=== PATIENT | male | born 1965 | race Caucasian/White ===

== ENCOUNTER 2019-06-15 19:18 | Inpatient (IN) | payer MEDICAID ==
[~2019-06-15] VITALS: Ht 177.8 cm; Wt 110.2 kg
[2019-06-15 19:18] VITALS: BP 75/43
--- NOTE | 2019-06-15 19:18 | NUR ---
ED Nurse Note: Patient was BIBA RA 69 from [facility] due to abd pain 05/30, states was vomitting bright red blood. upon arrival patient refused to be touched because he had to pass a bm. refused all assistance; had a bm on bed and floor. cleaned pt up. and assisted to bed. restless and uncooperative.
--- NOTE | 2019-06-15 19:44 | Emergency Room Report ---
History of Present Illness General Chief Complaint: Abdominal Pain Source: Patient, EMS Present Illness HPI Disclaimer: Please note that this report is being documented using DRAGON technology. This can lead to erroneous entry secondary to incorrect interpretation by the dictating instrument. HPI: 54-year-old male presents for evaluation of abdominal pain and hematemesis. States he is a diabetic and may have missed some doses of insulin over the past few days. He is a very poor historian, inattentive, staring off during my conversations with him. His responses are brief and sometimes nonsensical. EMS states he was complaining of hematemesis and abdominal pain that began earlier today. He reports heavy alcohol use over the past few days. Estimates a proximally 5 episodes of emesis and diarrhea throughout the day. Denies bloody stools or melena. Does not take blood thinners according to patient. PMH: Diabetes PSH: Possible hernia repair Allergies: Denies Social Hx: Heavy alcohol use, reported IV drug abuse Allergies: Coded Allergies: No Known Allergies (Unverified , 06/15/19) Nursing Documentation-PMH Past Medical History: No Stated History Review of Systems All Other Systems: negative except mentioned in HPI Physical Exam Vital Signs Date Time Temp Pulse Resp B/P (MAP) Pulse Ox O2 Delivery O2 Flow Rate FiO2 06/15/19 19:12 98.1 120 22 100/58 (72) 98 Room Air General: Awake and alert, appears uncomfortable, tachycardic, hypotensive HEENT: NC/AT. EOMI. dried blood around his mouth Cardiovascular: Tachycardic. Holosystolic murmur best heard at the apex Resp: Normal work of breathing. No cough, wheezing or crackles appreciated Abdomen: Abdomen is soft, nondistended. Nontender. Easily reducible umbilical hernia, soft, no overlying skin changes, nontender Skin: Intact. No abrasions, laceration or rash over the exposed skin. Multiple scars over the extremities, well healed, no abscess MSK: Normal tone and bulk. Moving all extremities. No obvious deformity. Neuro: Awake, very poor historian. Oriented to self and place. Moving all extremities. Tangential thought process Procedures Critical Care Time Critical Care Time Total critical care time: Approximately 60 minutes Due to a high probability of clinically significant, life threatening deterioration, the patient required the highest level of preparedness to intervene emergently and I personally spent this critical care time directly and personally managing the patient. This critical care time included obtaining a history, examining the patient, pulse oximetry, ordering and reviewing studies , ordering treatments, evaluating response to treatment and updating management plan as needed, frequent reassessment and discussion with other providers as well as arranging for ultimate disposition. This critical to care time was performed to assess and manage the high probability of life-threatening deterioration that could result in multiorgan failure. This critical care time is separate from the separately billable procedures and treating other patients. Ultrasound Ultrasound : Consent: Emergent Ultrasound: normal Patient Tolerated: Well Complications: None Progress No free fluid visualized in Morison's pouch, splenorenal space, or in the pelvis No pericardial effusion. No mitral or tricuspid vegetation appreciated. Central Line Central Line : Consent: Emergent Central Line Lumen: triple Maximal Sterile Barrier Tech: yes cap, yes mask, yes sterile gown, yes sterile gloves, yes large sterile sheet, yes hand hygiene, yes chlorhexidine prep Central Line Postion: internal jugular (R) Anesthesia: local cc's of anesthesia: 5 Complications: none Central Line Post Position: sutured, good blood return, position confirmed w / CXR Attempts: One Patient Tolerated: Well Complications: None Medical Decision Making Diagnostic Impression: Primary Impression: Hyperkalemia Additional Impressions: Hyponatremia Elevated troponin Acute kidney failure Hallucination Encephalopathy Acute upper GI bleed ER Course 54-year-old male presents for evaluation of abdominal pain and hematemesis. He arrives tachycardic and hypotensive. He is in no acute distress in my evaluation is a very poor historian. He does report heavy alcohol use and IV drug use is also mentioned. Differential includes was not limited to gastritis , peptic ulcer, perforated ulcer, pancreatitis, cholecystitis, bowel obstruction , incarcerated hernia, appendicitis, pyelonephritis, nephrolithiasis, Karolyn- Cabrera tear, Boerhaave syndrome. Bedside FAST exam is negative for free fluid in the abdomen. I do not see an obvious vegetation on the mitral or tricuspid valve though the exam is of limited quality. We will start broad metabolic and infectious work-up. Aggressive IV fluid hydration. Will obtain type and screen in preparation for possible blood transfusion. Patient also found to have a systolic ejection murmur at the left sternal border. In the setting of IV drug use this is concerning for endocarditis can be evaluated during his admission. Laboratory Tests Test 06/15/19 20:56 06/15/19 22:00 06/15/19 23:51 White Blood Count 9.1 K/UL (4.8-10.8) Pending Red Blood Count 3.16 M/UL (4.70-6.10) L Pending Hemoglobin 10.3 G/DL (14.2-18.0) L Pending Hematocrit 28.9 % (42.0-52.0) L Pending Mean Corpuscular Volume 91 FL (80-99) Pending Mean Corpuscular Hemoglobin 32.7 PG (27.0-31.0) H Pending Mean Corpuscular Hemoglobin Concent 35.8 G/DL (32.0-36.0) Pending Red Cell Distribution Width 10.1 % (11.6-14.8) L Pending Platelet Count 109 K/UL (150-450) L Pending Mean Platelet Volume 4.9 FL (6.5-10.1) L Pending Neutrophils (%) (Auto) 76.4 % (45.0-75.0) H Pending Lymphocytes (%) (Auto) 9.1 % (20.0-45.0) L Pending Monocytes (%) (Auto) 11.5 % (1.0-10.0) H Pending Eosinophils (%) (Auto) 1.3 % (0.0-3.0) Pending Basophils (%) (Auto) 1.6 % (0.0-2.0) Pending Prothrombin Time 11.4 SEC (9.30-11.50) Prothrombin Time INR 1.1 (0.9-1.1) PTT 22 SEC (23-33) L Sodium Level 129 MMOL/L (136-145) L Potassium Level 6.2 MMOL/L (3.5-5.1) *H Chloride Level 94 MMOL/L (98-107) L Carbon Dioxide Level 17 MMOL/L (21-32) L Anion Gap 18 mmol/L (5-15) H Blood Urea Nitrogen 90 mg/dL (7-18) H Creatinine 5.3 MG/DL (0.55-1.30) H Estimate Glomerular Filtration Rate 11.4 mL/min (>60) Glucose Level 93 MG/DL (74-106) Lactic Acid Level 0.90 mmol/L (0.4-2.0) Calcium Level 10.2 MG/DL (8.5-10.1) H Total Bilirubin 0.8 MG/DL (0.2-1.0) Aspartate Amino Transferase (AST) 117 U/L (15-37) H Alanine Aminotransferase (ALT) 28 U/L (12-78) Alkaline Phosphatase 88 U/L (46-116) Troponin I 0.215 ng/mL (0.000-0.056) Total Protein 8.3 G/DL (6.4-8.2) H Albumin 4.0 G/DL (3.4-5.0) Globulin 4.3 g/dL Albumin/Globulin Ratio 0.9 (1.0-2.7) L Lipase 206 U/L (73-393) Urine Color Yellow Urine Appearance Clear Urine pH 5 (4.5-8.0) Urine Specific Bronson 1.010 (1.005-1.035) Urine Protein 1+ (NEGATIVE) H Urine Glucose (UA) Negative (NEGATIVE) Urine Ketones 1+ (NEGATIVE) H Urine Blood 5+ (NEGATIVE) H Urine Nitrite Negative (NEGATIVE) Urine Bilirubin Negative (NEGATIVE) Urine Urobilinogen Normal MG/DL (0.0-1.0) Urine Leukocyte Esterase Negative (NEGATIVE) Urine RBC 30-40 /HPF (0 - 0) H Urine WBC 0-2 /HPF (0 - 0) Urine Squamous Epithelial Cells None /LPF (NONE/OCC) Urine Bacteria Few /HPF (NONE) Ammonia 63 umol/L (11-32) H Urine Opiates Screen Positive (NEGATIVE) H Urine Barbiturates Screen Negative (NEGATIVE) Phencyclidine (PCP) Screen Negative (NEGATIVE) Urine Amphetamines Screen Positive (NEGATIVE) H Urine Benzodiazepines Screen Negative (NEGATIVE) Urine Cocaine Screen Negative (NEGATIVE) Urine Marijuana (THC) Screen Negative (NEGATIVE) EKG Diagnostic Results EKG Time: 20:23 Rate: tachycardiac Rhythm: NSR Other Impression Sinus tachycardia, normal rhythm, normal axis, normal intervals. No ST segment changes. Rhythm Strip Diag. Results Rhythm Strip Time: 20:23 EP Interpretation: yes Rate: 110s Rhythm: NSR, no PVC's, no ectopy Chest X-Ray Diagnostic Results Chest X-Ray Diagnostic Results : Chest X-Ray Ordered: Yes # of Views/Limited/Complete: 1 View Indication: Other - Line placement EP Interpretation: Yes Interpretation: no consolidation, no effusion, no pneumothorax, other - Right internal jugular line in place Impression: Other - Satisfactory position of the right internal jugular line. CT/MRI/US Diagnostic Results CT/MRI/US Diagnostic Results : Impression [facility] Patient: AILYN MONREAL (Male) Age: 54 MR #: [id number] Status: ER Date: 06/15/19 23:26 Slices: 0 History: PAIN Priors: Tech: Exam request generated by Battlepro interface Exams: CT ABDOMEN & PELVIS Without Contrast, CT CHEST Without Contrast Referring Phy: LIDIA^AMISH Ordering Phy: Amish Earl MD Contrast: Accession Numbers: [id number] Preliminary Findings Only See Final Report For Complete Findings CT CHEST Without Contrast: Limited due to motion. Possible mild pulmonary edema/infiltrates, versus hypoventilation or motion artifact. No acute fracture or pneumothorax. CT ABDOMEN & PELVIS Without Contrast: No appendicitis, SBO, or diverticulitis. Mild diffuse colonic thickening which may be underdistention, chronic, versus colitis. No hydronephrosis. Mildly thickened bladder which may be underdistention versus cystitis. Unremarkable gallbladder and pancreas. Mildly nodular liver contour, cannot exclude cirrhosis. No acute fracture or visceral injury. Umbilical fat hernia Radiologist: Navjot Haro M.D. Study ready at 23:41 and initial results transmitted at 00:14 Reevaluation Time: 23:13 Last Vital Signs Date Time Temp Pulse Resp B/P (MAP) Pulse Ox O2 Delivery O2 Flow Rate FiO2 06/15/19 19:12 98.1 120 22 100/58 (72) 98 Room Air Reevaluation Impression Patient was initially unable to tolerate CT scan without contrast due to agitation. When he returned to the room he was hallucinating though redirectable. He was not violent and was in fact cooperative. Given persistently low blood pressures and inability to establish a peripheral line a central line was placed in the right internal jugular vein under ultrasound guidance. Please see separate procedure note for full details. Labs show hyponatremia, hyperkalemia, acute kidney failure, elevated troponin. His EKG does not show ischemic changes but does show sinus tachycardia. May be demand ischemia or from his significant electrolyte and renal derangements. In the setting of possible massive GI bleed will withhold aspirin. He is receiving IV fluids. He will go for a noncontrast scan of the torso given his reported large volume hemoptysis. He has received calcium gluconate, insulin and dextrose to treat his hyperkalemia. Will require admission to the ICU. Patient also had large amounts of diarrhea while in the emergency department. Suspect significant volume losses 2330: Patient returned from his CT scan hypotensive. He is receiving IV fluids however blood pressures did not significantly improved. Levophed drip was started and is improving his pressures. Will repeat CBC and troponin. Patient is received ceftriaxone, Protonix and will obtain blood cultures as part of septic work-up. Will require admission to the ICU. 0030: No evidence of perforation or large bleed on CT scan. Repeat hemoglobin dropped 2.3 points. No evidence of active bleeding. Patient received Protonix. May represent a mucosal bleed such as Dieulafoy lesion, alcoholic gastritis, Karolyn-Cabrera tear, variceal bleed. Octreotide is not given as the patient is not actively bleeding at this time. His pressures are improving after receiving fluids and norepinephrine drip continues. We will transfuse 1 unit and transferred to the ICU. Disposition: ADMITTED INPATIENT Condition: Critical Amish Earl MD Jun 15, 2019 19:44
[2019-06-15 20:30] VITALS: BP 95/53
--- NOTE | 2019-06-15 20:56 | NUR ---
ED Nurse Note: blood collected; sent down to lab.
[2019-06-15 21:23] LABS: BASOPHILS % (AUTO) 1.6 % (0.0-2.0); EOSINOPHILS % (AUTO) 1.3 % (0.0-3.0); HEMATOCRIT 28.9 % (42.0-52.0); HEMOGLOBIN 10.3 G/DL (14.2-18.0); LYMPHOCYTES % (AUTO) 9.1 % (20.0-45.0); MEAN CORPUSCULAR VOLUME 91 FL (80-99); MONOCYTES % (AUTO) 11.5 % (1.0-10.0); NEUTROPHILS % (AUTO) 76.4 % (45.0-75.0); PLATELET COUNT 109 K/UL (150-450); RED BLOOD COUNT 3.16 M/UL (4.70-6.10); RED CELL DISTRIBUTION WIDTH 10.1 % (11.6-14.8); WHITE BLOOD COUNT 9.1 K/UL (4.8-10.8)
[2019-06-15 21:25] LABS: INR 1.1 (0.9-1.1)
[2019-06-15 21:30] VITALS: BP 107/56
[2019-06-15] MEDS ORDERED: Haloperidol 5mg/ml Inj IM ONE (21:30)
[2019-06-15 21:39] LABS: ALANINE AMINOTRANSFERASE 28 U/L (12-78); ALBUMIN/GLOBULIN RATIO 0.9 (1.0-2.7); ALKALINE PHOSPHATASE 88 U/L (46-116); ANION GAP 18 mmol/L (5-15); ASPARTATE AMINO TRANSFERASE 117 U/L (15-37); BILIRUBIN,TOTAL 0.8 MG/DL (0.2-1.0); BLOOD UREA NITROGEN 90 mg/dL (7-18); CALCIUM 10.2 MG/DL (8.5-10.1); CARBON DIOXIDE 17 MMOL/L (21-32); CHLORIDE 94 MMOL/L (98-107); CREATININE 5.3 MG/DL (0.55-1.30); SODIUM 129 MMOL/L (136-145)
[2019-06-15 21:42] LABS: POTASSIUM 6.2 MMOL/L (3.5-5.1)
[2019-06-15] MEDS ORDERED: Lidocaine 1% 10mg/ml/Epi 0.005mg/ml 10ml vial INJ ONE (21:51)
--- NOTE | 2019-06-15 22:00 | NUR ---
ED Nurse Note: urine collected; sent down to lab. wound noted on right inner thight; photos upleaded. cre vre mrsa swabs collected; sent down to lab.
[2019-06-15] MEDS ORDERED: Omnipaue 350mg/ml 100ml vial INJ PRN (22:15)
[2019-06-15] MEDS ORDERED: Calcium Gluconate 1gm/10ml vial IVP ONE (22:15)
[2019-06-15] MEDS ORDERED: Insulin Human Regular 100units/ml 3ml IV ONE (22:15)
--- NOTE | 2019-06-15 22:15 | NUR ---
ED Nurse Note: assisted ermd with central line placement. pt in no acute distress
[2019-06-15 22:30] VITALS: BP 56/46
--- NOTE | 2019-06-15 23:00 | NUR ---
ED Nurse Note: patients states "im going to shit right here." offered bedpan and toileting; pt refused. cleaned patient in bed. patient in no acute distress.
--- NOTE | 2019-06-15 23:10 | NUR ---
ED Nurse Note: PT DOWN TO CT. ACCOMPANIED BY 2 RADIOLOGY TECHS.
[2019-06-15 23:12] LABS: APPEARANCE,URINE CLEAR; BILIRUBIN, URINE NEGATIVE (NEGATIVE); GLUCOSE, URINE (UA) NEGATIVE (NEGATIVE); KETONES,URINE 1+ (NEGATIVE); LEUKOCYTE ESTERASE ,URINE NEGATIVE (NEGATIVE); NITRITE,URINE NEGATIVE (NEGATIVE); PH,URINE 5 (4.5-8.0); PROTEIN,URINE 1+ (NEGATIVE); UROBILINOGEN,URINE NORMAL MG/DL (0.0-1.0)
[2019-06-15 23:24] LABS: COLOR,URINE YELLOW
[2019-06-15 23:30] VITALS: BP 53/20
[2019-06-15] MEDS ORDERED: Pantoprazole Inj IVP ONE (23:30)
[2019-06-15] MEDS ORDERED: Lactulose 20gm/30ml UDC ORAL ONE (23:30)
[2019-06-15] MEDS ORDERED: cefTRIAXone 1 GM in NS 55 ML IVPB ONE (23:30)
--- NOTE | 2019-06-15 23:30 | NUR ---
ED Nurse Note: patient back from ct.
[2019-06-15] MEDS ORDERED: Norepinephrine Bitartrate 4 MG in NS 250 ML IV ONE (23:45)
--- NOTE | 2019-06-15 23:51 | NUR ---
ED Nurse Note: repeat labs drawn; sent down to lab.
[2019-06-16] VITALS (55 sets, daily range): BP systolic 64–122; BP diastolic 29–71
[2019-06-16 00:11] LABS: HEMATOCRIT 21.8 % (42.0-52.0); MEAN CORPUSCULAR VOLUME 91 FL (80-99); PLATELET COUNT 89 K/UL (150-450); RED CELL DISTRIBUTION WIDTH 10.6 % (11.6-14.8); WHITE BLOOD COUNT 7.7 K/UL (4.8-10.8)
--- NOTE | 2019-06-16 00:15 | Diagnostic Imaging Report ---
CLINICAL INDICATION:Abdominal pain, vomiting bright red blood, difficulty breathing TECHNIQUE: No oral contrast, per emergency room physician request. No IV contrast, per emergency room physician request. Spiral acquisitions obtained through the chest, abdomen, and pelvis. Multiplanar reconstructions were generated. Total dose length product 1530 mGycm. CTDIvol(s) 19 mGy. Radiation dose was minimized using automated exposure control COMPARISON: none FINDINGS Chest: The lungs demonstrate groundglass opacities bilaterally. These are fairly diffuse. There is hyperinflation of the upper lobes and small upper lobe blebs bilaterally. No focal airspace consolidation. No infiltrates, effusions, masses, or nodules. The heart is borderline enlarged. No pericardial effusion. There is a right jugular central venous catheter in place, tip deep within the right atrium. No mediastinal or hilar mass or adenopathy demonstrated. The included thyroid is unremarkable. No axillary or chest wall mass or adenopathy. Abdomen pelvis: There is a fat-containing umbilical hernia. The appendix is normal. No evidence of colonic diverticulosis or diverticulitis. There is mild wall thickening of the sigmoid colon. There is equivocal mild wall thickening elsewhere in the colon, although this may be an artifact of under distention. No free or loculated intraperitoneal gas or fluid is evident. No small bowel distention. The stomach and duodenum are unremarkable. The gallbladder is distended. No definite gallstones. The lack of IV contrast limits assessment of the solid organs. There is questionable surface nodularity of the liver. No focal abnormality Bile ducts, pancreas, spleen, adrenals, kidneys are unremarkable. No retroperitoneal or mesenteric mass or adenopathy. The bladder is empty. No pelvic mass or adenopathy. IMPRESSION: Sigmoid colonic wall thickening, suspicious for colitis, nonspecific as regards etiology. Apparent wall thickening elsewhere in the colon, may also indicate colitis changes but could also be an artifact of under distention Bilateral pulmonary parenchymal groundglass opacity. This is nonspecific, could indicate mild pulmonary edema, among other possibilities Upper lobe hyperinflation and small blebs, likely representing COPD changes Borderline cardiomegaly Right jugular central venous catheter in place Equivocal surface nodularity; if real, could indicate early cirrhotic changes Incidental finding of fat-containing umbilical hernia This agrees with the preliminary interpretation provided overnight by [employer] teleradiology service. The CT scanner at [facility] is accredited by the [employer] and the scans are performed using protocols designed to limit radiation exposure to as low as reasonably achievable to attain images of sufficient resolution adequate for diagnostic evaluation.
[2019-06-16 00:32] LABS: PHOSPHORUS 6.1 MG/DL (2.5-4.9)
--- NOTE | 2019-06-16 00:39 | NUR ---
ED Nurse Note: per ermd, overide protocol & infuse levophed at 12 mcg/min (45 mls/hr)
--- NOTE | 2019-06-16 01:43 | NUR ---
ED Nurse Note: patient urinated on the floor despite access to urinal.
--- NOTE | 2019-06-16 02:00 | NUR ---
ED Nurse Note: FOLLOWED UP WITH LAB REGARDING BLOOD TRANSFUSION. PER CLS, TYPE & CROSS STILL PENDING.
--- NOTE | 2019-06-16 02:45 | NUR ---
ED Nurse Note: TRANSFUSION STARTED. PT CALM AND COOPERATIVE. NO ACUTE DISTRESS.
--- NOTE | 2019-06-16 03:00 | NUR ---
TRANSFER TO FLOOR: Patient transferred to ICU 246 K as ordered, per ENEIDA. Report given to CHINA PEARL. BELONGINGS LIST COMPLETED WITH RECEIVING RN.
--- NOTE | 2019-06-16 03:10 | NUR ---
NURSE NOTES: REceived a 54 y.o male with chief c/o abdominal pain and hematemesis. Pt is altered and hardly answer any question ask. Mouth has some ganky blood stained, 1st unit PRBC on board as well as Levophed drip at 12mcg/min infusing through IJ central line. Site with drsg dry and intact. SR on the monitor. 0
[2019-06-16] MEDS ORDERED: ACETAMINOPHEN325 M1 ORAL (03:47)
[2019-06-16] MEDS ORDERED: MULTI-VITAMIN1 EACH PO (03:47)
[2019-06-16] MEDS ORDERED: SPIRONOLACTONE25 MG ORAL (03:47)
[2019-06-16] MEDS ORDERED: GABAPENTIN600 MG ORAL (03:47)
[2019-06-16] MEDS ORDERED: MILK OF MA400 MG/51 ORAL (03:47)
[2019-06-16] MEDS ORDERED: LISINOPRIL5 MG ORAL (03:47)
[2019-06-16] MEDS ORDERED: VITAMIN C250 MG ORAL (03:47)
[2019-06-16] MEDS ORDERED: BISACODYL5 MG ORAL (03:47)
[2019-06-16] MEDS ORDERED: NORCO 5-325 TA1 EACH ORAL (03:47)
[2019-06-16] MEDS ORDERED: FUROSEMIDE40 MG ORAL (03:47)
[2019-06-16] MEDS ORDERED: ZOFRAN4 M1 ORAL (03:47)
[2019-06-16] MEDS ORDERED: FLEET ENEMA133 M1 RC (03:47)
[2019-06-16] MEDS ORDERED: PRO-STAT LIQUID30 ML ORAL (03:47)
[2019-06-16] MEDS ORDERED: LACTULOSE20 GM/301 ORAL (03:47)
[2019-06-16] MEDS ORDERED: DOCUSATE SODIU100 MG ORAL (03:47)
[2019-06-16] MEDS ORDERED: ADALAT10 MG ORAL (03:47)
--- NOTE | 2019-06-16 03:51 | NUR ---
NURSE NOTES: NSR on the monitor. Bp 103/51 . On room air. 02 sat 100%. PT sleeping and snoring at this time and easily arousable to tactile stimulation. open wound approximately quarter in size were noted to his left posterior thigh as well as multiple blisters and ecchymosis were noted as well to posterior left thigh. There is a scar noted to RT posterior leg. Otherwise no pressure sores. The open wound was covered with optifoam and A annd D was applied. Pt was able to use the urinal and void 800ml. Will continue to monitor.
--- NOTE | 2019-06-16 05:20 | NUR ---
NURSE NOTES: Pts Bp 100/55 NSR, called Dr Ellington for continuition of Levophed drip from ER- Awaiting for md to call back
--- NOTE | 2019-06-16 05:50 | NUR ---
NURSE NOTES: Re called Dr Ellington - still awaiting for md to call back. bakery demonstratorRYANNE Greco was aware.
[2019-06-16] MEDS ORDERED: Levophed 4mg/4mL Inj IV ONE (06:17)
[2019-06-16 07:09] LABS: ALANINE AMINOTRANSFERASE 26 U/L (12-78); ALBUMIN 3.3 G/DL (3.4-5.0); ALBUMIN/GLOBULIN RATIO 0.7 (1.0-2.7); ALKALINE PHOSPHATASE 74 U/L (46-116); ANION GAP 13 mmol/L (5-15); ASPARTATE AMINO TRANSFERASE 119 U/L (15-37); BILIRUBIN,TOTAL 0.8 MG/DL (0.2-1.0); BLOOD UREA NITROGEN 80 mg/dL (7-18); CALCIUM 9.2 MG/DL (8.5-10.1); CARBON DIOXIDE 18 MMOL/L (21-32); CHLORIDE 106 MMOL/L (98-107); CREATININE 4.3 MG/DL (0.55-1.30); SODIUM 138 MMOL/L (136-145)
[2019-06-16 07:20] LABS: POTASSIUM 6.4 MMOL/L (3.5-5.1)
[2019-06-16 07:37] LABS: BASOPHILS % (AUTO) 1.1 % (0.0-2.0); HEMATOCRIT 28.3 % (42.0-52.0); HEMOGLOBIN 10.1 G/DL (14.2-18.0); LYMPHOCYTES % (AUTO) 11.7 % (20.0-45.0); MEAN CORPUSCULAR VOLUME 92 FL (80-99); MONOCYTES % (AUTO) 15.5 % (1.0-10.0); NEUTROPHILS % (AUTO) 70.7 % (45.0-75.0); PLATELET COUNT 103 K/UL (150-450); RED BLOOD COUNT 3.06 M/UL (4.70-6.10); RED CELL DISTRIBUTION WIDTH 11.5 % (11.6-14.8); WHITE BLOOD COUNT 6.7 K/UL (4.8-10.8)
--- NOTE | 2019-06-16 07:37 | NUR ---
NURSE NOTES: CALLED AND LEFT A MESSAGE TO DR MOSS RE K LEVEL, AND DR CALDWELL RE TROPONIN LEVEL. AWAITING FOR CALL BACK. CN MADE AWARE. WILL CONTINUE TO MONITOR.
--- NOTE | 2019-06-16 07:42 | NUR ---
HAND-OFF: Report given to Sophia PEARL.
--- NOTE | 2019-06-16 07:43 | NUR ---
NURSE NOTES: RECEIVED PATIENT FROM Scarlett LINDO RN. PATIENT IS LYING IN BED, ASLEEP BUT RESPONSIVE AND CONFUSED. 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 HR OF 88. ON ROOM AIR. NO SIGNS OF DISTRESS. DENIES ANY PAIN OF THE MOMENT. NPO OF THE MOMENT. HE USES URINALS. SKIN ALTERATION NOTED. NOTED R IJ TLC WITH LEVOPHED RUNNING AT 15MCG/MIN AND IVF NS AT 100ML/HR. CALL LIGHT WITHIN REACH. BED AT LOWEST POSITION. SIDE RAILS UP. WILL CONTINUE TO MONITOR.
[2019-06-16] MEDS ORDERED: D5NS 1,000 ML IV SCH (08:00)
--- NOTE | 2019-06-16 08:00 | NUR ---
NURSE NOTES: SEEN AND EXAMINED BY DR MENCHACA AND MADE AWARE OF THE LAB RESULT. WILL CONTINUE TO MONITOR.
--- NOTE | 2019-06-16 08:54 | NUR ---
NURSE NOTES: SEEN AND EXAMINED BY DR MOSS WITH NEW ORDERS MADE. 2D ECHO AND VENOUS DUPLEX ON-GOING. WILL CONTINUE TO MONITOR.
[2019-06-16] MEDS ORDERED: Thiamine 100mg tab ORAL SCH (09:00)
--- NOTE | 2019-06-16 09:14 | Consultation ---
History of Present Illness General Date patient seen: Jun 16, 2019 Present Illness Allergies: Coded Allergies: No Known Allergies (Unverified , 06/15/19) Medication History Discontinued Medications Acetaminophen* (Acetaminophen 325MG Tablet*), 325 MG ORAL Q4H PRN for Pain Scale (3-5), (Reported) Discontinued Reason: MD discontinued med Amino Acids/Protein Hydrolys (Pro-Stat Liquid), 30 ML ORAL TWICE A DAY, ( Reported) Discontinued Reason: MD discontinued med Ascorbic Acid* (Vitamin C*), 250 MG ORAL DAILY, (Reported) Discontinued Reason: MD discontinued med Bisacodyl* (Dulcolax*), 10 MG ORAL DAILY, (Reported) Discontinued Reason: MD discontinued med Docusate Sodium* (Docusate Sodium*), 100 MG ORAL TWICE A DAY, (Reported) Discontinued Reason: MD discontinued med Furosemide* (Lasix*), 40 MG ORAL TWICE A DAY, (Reported) Discontinued Reason: MD discontinued med Gabapentin* (Gabapentin*), 600 MG ORAL THREE TIMES A DAY, (Reported) Discontinued Reason: MD discontinued med Hydrocodone Bit/Acetaminophen 5-325* ([place] 5-325*), 1 TAB ORAL Q4H PRN for For Pain, (Reported) Discontinued Reason: MD discontinued med Lactulose (Lactulose*), 30 ML ORAL, (Reported) Discontinued Reason: MD discontinued med Lisinopril (Lisinopril*), 10 MG ORAL DAILY, (Reported) Discontinued Reason: MD discontinued med Magnesium Hydroxide* (Milk Of Magnesia*), 30 ML ORAL DAILY, (Reported) Discontinued Reason: MD discontinued med Multivitamin (Multi-Vitamin Daily), 1 EACH PO, (Reported) Discontinued Reason: MD discontinued med Na Phos,M-B/Na Phos,Di-Ba (Fleet Enema), 133 ML RC, (Reported) Discontinued Reason: MD discontinued med Nifedipine (Nifedipine*), 30 MG ORAL DAILY, (Reported) Discontinued Reason: MD discontinued med Ondansetron (Zofran), 4 MG ORAL Q6H PRN for Nausea & Vomiting, (Reported) Discontinued Reason: MD discontinued med Spironolactone* (Aldactone*), 25 MG ORAL DAILY, (Reported) Discontinued Reason: MD discontinued med Patient History Healthcare decision maker Resuscitation status Full Code Advanced Directive on File No Physical Exam Last 24 Hour Vital Signs Date Time Temp Pulse Resp B/P (MAP) Pulse Ox O2 Delivery O2 Flow Rate FiO2 06/16/19 08:45 87 15 111/63 (79) 100 06/16/19 08:30 87 16 122/64 (83) 100 06/16/19 08:30 122/64 06/16/19 08:30 86 15 114/63 (80) 100 06/16/19 08:15 87 15 114/63 (80) 100 06/16/19 08:00 87 06/16/19 08:00 111/57 06/16/19 08:00 97.8 87 13 111/57 (75) 99 06/16/19 08:00 Room Air 06/16/19 07:45 88 14 112/61 (78) 99 06/16/19 07:30 86 14 122/69 (86) 99 06/16/19 07:13 120/68 06/16/19 07:13 122/69 06/16/19 07:00 92 20 122/69 (86) 100 06/16/19 06:30 93 20 112/29 (56) 100 06/16/19 06:00 100/60 06/16/19 06:00 95 20 110/29 (56) 100 06/16/19 05:30 96 18 64/29 (41) 100 06/16/19 05:00 90 20 99/50 (66) 100 06/16/19 05:00 64/29 06/16/19 04:00 Room Air 06/16/19 04:00 103/52 06/16/19 04:00 98.2 93 20 100/55 (70) 100 06/16/19 03:31 101 06/16/19 03:30 Room Air 06/16/19 03:30 95 20 103/52 (69) 100 06/16/19 03:15 98.1 101 22 103/61 (75) 100 06/16/19 03:10 103/61 06/16/19 03:00 98.1 94 14 95/51 99 Room Air 06/16/19 02:30 98.1 94 14 95/51 99 Room Air 06/16/19 02:00 98.1 91 16 99/52 98 Room Air 06/16/19 01:05 98.1 93 16 95/46 98 Room Air 06/16/19 01:04 95/46 06/16/19 00:59 84/45 06/16/19 00:54 94/43 06/16/19 00:49 93/44 06/16/19 00:44 90/48 06/16/19 00:39 104/48 06/16/19 00:34 88/40 06/16/19 00:30 98.1 98 21 75/43 99 Room Air 06/16/19 00:29 75/43 06/15/19 23:30 98.1 98 21 53/20 99 Room Air 06/15/19 22:30 98.1 98 21 56/46 99 Room Air 06/15/19 21:30 98.1 116 21 107/56 100 Room Air 06/15/19 20:30 98.1 115 22 95/53 99 Room Air 06/15/19 19:18 98.1 120 22 75/43 98 Room Air 06/15/19 19:18 120 22 Room Air 06/15/19 19:12 98.1 120 22 100/58 (72) 98 Room Air Intake and Output 06/15/19 06/16/19 19:00 07:00 Intake Total 465.24 ml Output Total 1700 ml Balance -1234.76 ml Intake Oral 0 ml IV Total 465.24 ml Output Urine Total 1700 ml # Voids 2 # Bowel Movements 6 Laboratory Tests Test 06/15/19 20:56 06/15/19 22:00 06/15/19 23:51 06/16/19 00:00 White Blood Count 9.1 K/UL (4.8-10.8) 7.7 K/UL (4.8-10.8) Red Blood Count 3.16 M/UL (4.70-6.10) L 2.40 M/UL (4.70-6.10) L Hemoglobin 10.3 G/DL (14.2-18.0) L 8.0 G/DL (14.2-18.0) L Hematocrit 28.9 % (42.0-52.0) L 21.8 % (42.0-52.0) L Mean Corpuscular Volume 91 FL (80-99) 91 FL (80-99) Mean Corpuscular Hemoglobin 32.7 PG (27.0-31.0) H 33.4 PG (27.0-31.0) H Mean Corpuscular Hemoglobin Concent 35.8 G/DL (32.0-36.0) 36.6 G/DL (32.0-36.0) H Red Cell Distribution Width 10.1 % (11.6-14.8) L 10.6 % (11.6-14.8) L Platelet Count 109 K/UL (150-450) L 89 K/UL (150-450) L Mean Platelet Volume 4.9 FL (6.5-10.1) L 4.4 FL (6.5-10.1) L Neutrophils (%) (Auto) 76.4 % (45.0-75.0) H % (45.0-75.0) Lymphocytes (%) (Auto) 9.1 % (20.0-45.0) L % (20.0-45.0) Monocytes (%) (Auto) 11.5 % (1.0-10.0) H % (1.0-10.0) Eosinophils (%) (Auto) 1.3 % (0.0-3.0) % (0.0-3.0) Basophils (%) (Auto) 1.6 % (0.0-2.0) % (0.0-2.0) Prothrombin Time 11.4 SEC (9.30-11.50) Prothromb Time International Ratio 1.1 (0.9-1.1) Activated Partial Thromboplast Time 22 SEC (23-33) L Sodium Level 129 MMOL/L (136-145) L Potassium Level 6.2 MMOL/L (3.5-5.1) *H Chloride Level 94 MMOL/L (98-107) L Carbon Dioxide Level 17 MMOL/L (21-32) L Anion Gap 18 mmol/L (5-15) H Blood Urea Nitrogen 90 mg/dL (7-18) H Creatinine 5.3 MG/DL (0.55-1.30) H Estimat Glomerular Filtration Rate 11.4 mL/min (>60) Glucose Level 93 MG/DL (74-106) Lactic Acid Level 0.90 mmol/L (0.4-2.0) Calcium Level 10.2 MG/DL (8.5-10.1) H Total Bilirubin 0.8 MG/DL (0.2-1.0) Aspartate Amino Transf (AST/SGOT) 117 U/L (15-37) H Alanine Aminotransferase (ALT/SGPT) 28 U/L (12-78) Alkaline Phosphatase 88 U/L (46-116) Troponin I 0.215 ng/mL (0.000-0.056) 0.196 ng/mL (0.000-0.056) Total Protein 8.3 G/DL (6.4-8.2) H Albumin 4.0 G/DL (3.4-5.0) Globulin 4.3 g/dL Albumin/Globulin Ratio 0.9 (1.0-2.7) L Lipase 206 U/L (73-393) Urine Color Yellow Urine Appearance Clear Urine pH 5 (4.5-8.0) Urine Specific [place] 1.010 (1.005-1.035) Urine Protein 1+ (NEGATIVE) H Urine Glucose (UA) Negative (NEGATIVE) Urine Ketones 1+ (NEGATIVE) H Urine Blood 5+ (NEGATIVE) H Urine Nitrite Negative (NEGATIVE) Urine Bilirubin Negative (NEGATIVE) Urine Urobilinogen Normal MG/DL (0.0-1.0) Urine Leukocyte Esterase Negative (NEGATIVE) Urine RBC 30-40 /HPF (0 - 0) H Urine WBC 0-2 /HPF (0 - 0) Urine Squamous Epithelial Cells None /LPF (NONE/OCC) Urine Bacteria Few /HPF (NONE) Ammonia 63 umol/L (11-32) H Urine Opiates Screen Positive (NEGATIVE) H Urine Barbiturates Screen Negative (NEGATIVE) Phencyclidine (PCP) Screen Negative (NEGATIVE) Urine Amphetamines Screen Positive (NEGATIVE) H Urine Benzodiazepines Screen Negative (NEGATIVE) Urine Cocaine Screen Negative (NEGATIVE) Urine Marijuana (THC) Screen Negative (NEGATIVE) Phosphorus Level 6.1 MG/DL (2.5-4.9) H Magnesium Level 2.7 MG/DL (1.8-2.4) H Test 06/16/19 06:45 White Blood Count 6.7 K/UL (4.8-10.8) Red Blood Count 3.06 M/UL (4.70-6.10) L Hemoglobin 10.1 G/DL (14.2-18.0) L Hematocrit 28.3 % (42.0-52.0) L Mean Corpuscular Volume 92 FL (80-99) Mean Corpuscular Hemoglobin 32.9 PG (27.0-31.0) H Mean Corpuscular Hemoglobin Concent 35.6 G/DL (32.0-36.0) Red Cell Distribution Width 11.5 % (11.6-14.8) L Platelet Count 103 K/UL (150-450) L Mean Platelet Volume 4.1 FL (6.5-10.1) L Neutrophils (%) (Auto) 70.7 % (45.0-75.0) Lymphocytes (%) (Auto) 11.7 % (20.0-45.0) L Monocytes (%) (Auto) 15.5 % (1.0-10.0) H Eosinophils (%) (Auto) 1.0 % (0.0-3.0) Basophils (%) (Auto) 1.1 % (0.0-2.0) Sodium Level 138 MMOL/L (136-145) Potassium Level 6.4 MMOL/L (3.5-5.1) *H Chloride Level 106 MMOL/L (98-107) Carbon Dioxide Level 18 MMOL/L (21-32) L Anion Gap 13 mmol/L (5-15) Blood Urea Nitrogen 80 mg/dL (7-18) H Creatinine 4.3 MG/DL (0.55-1.30) H Estimat Glomerular Filtration Rate 14.5 mL/min (>60) Glucose Level 97 MG/DL (74-106) Calcium Level 9.2 MG/DL (8.5-10.1) Total Bilirubin 0.8 MG/DL (0.2-1.0) Aspartate Amino Transf (AST/SGOT) 119 U/L (15-37) H Alanine Aminotransferase (ALT/SGPT) 26 U/L (12-78) Alkaline Phosphatase 74 U/L (46-116) Troponin I 0.142 ng/mL (0.000-0.056) Total Protein 7.8 G/DL (6.4-8.2) Albumin 3.3 G/DL (3.4-5.0) L Globulin 4.5 g/dL Albumin/Globulin Ratio 0.7 (1.0-2.7) L Height (Feet): 5 Height (Inches): 11.00 Weight (Pounds): 242 Medications Current Medications Medications (Trade) Dose Ordered Sig/Kelley Route PRN Reason Start Time Stop Time Status Last Admin Dose Admin Albumin Human 500 ml @ 0 mls/hr Q0M IV 06/16/19 08:00 06/16/19 09:30 06/16/19 08:06 Dextrose/Sodium Chloride 1,000 ml @ 100 mls/hr Q10H IV 06/16/19 08:00 07/16/19 07:59 06/16/19 08:06 Folic Acid (Folate) 1 mg DAILY ORAL 06/16/19 09:00 07/16/19 08:59 Norepinephrine Bitartrate 4 mg/ Dextrose 250 ml @ 0 mls/hr Q24H IV 06/16/19 08:00 07/16/19 07:59 06/16/19 07:13 Thiamine HCl (Vitamin B1) 100 mg DAILY ORAL 06/16/19 09:00 07/16/19 08:59 Assessment/Plan Assessment/Plan: (1) Altered mental status (2) Polysubstance abuse seen dictated Ottoniel Espinal Jun 16, 2019 09:14
[2019-06-16] MEDS ORDERED: LORazepam Inj 2mg/ml 1ml IV PRN (09:15)
--- NOTE | 2019-06-16 10:47 | NUR ---
NURSE NOTES: CALLED AND SPOKE WITH DR SHIELDS RE K LEVEL OF 5.7 AND PVR OF 320ML. WILL CONTINUE TO MONITOR.
--- NOTE | 2019-06-16 10:48 | Consultation ---
Consult Note Consult Note Asked to eval at the request of Dr rose for renal failure and HyperKalemia Encephalopathic poor historian 54-year-old male presents for evaluation of abdominal pain and hematemesis. States he is a diabetic and may have missed some doses of insulin over the past few days. He is a very poor historian, inattentive, staring off during my conversations with him. His responses are brief and sometimes nonsensical. EMS states he was complaining of hematemesis and abdominal pain that began earlier today. He reports heavy alcohol use over the past few days. Estimates a proximally 5 episodes of emesis and diarrhea throughout the day. Denies bloody stools or melena. Does not take blood thinners according to patient. PMH: Diabetes PSH: Possible hernia repair Allergies: Denies Social Hx: Heavy alcohol use, reported IV drug abuse No Known Allergies (Unverified , 06/15/19) examined discussed with RN data reviewed Assessment/Plan Acute kidney failure GI Bleed Hyperkalemia Hyponatremia Elevated troponin Encephalopathy Amphetamines in urine Hydrate Flomax- has urinary residual IV Thiamin Monitor Electrolyte and renal parameters Kidney KEVIN 2D echo Urine studies per orders Vic Kaufman MD Jun 16, 2019 10:48
--- NOTE | 2019-06-16 10:59 | NUR ---
*-* NO INSURANCE INFORMATION INTHE BAR UNABLE TO SEND CLINICALS *-*
[2019-06-16] MEDS: D5NS 1,000 ML IV SCH ×2 (11:10→17:33)
[2019-06-16] MEDS ORDERED: SandoSTATIN 50mcg Inj IVP SCH (11:30)
[2019-06-16] MEDS: Pantoprazole Inj IVP SCH ×2 (11:35→21:25)
[2019-06-16] MEDS: Tamsulosin 0.4mg cap ORAL SCH ×2 (11:35→17:34)
[2019-06-16] MEDS: Nitroglycerin Patch 0.4mg TDERMAL SCH ×2 (12:30→15:49)
[2019-06-16] MEDS ORDERED: Octreotide Acetate 500 MCG in Sodium Chloride 499 ML IV SCH (12:30)
--- NOTE | 2019-06-16 12:30 | NUR ---
NURSE NOTES: PATIENT NOTED TO BE MORE RESPONSIVE BUT FORGETFUL. ABLE TO ANSWER SOME QUESTIONS. STILL ON ROOM AIR. NO SIGNS OF DISTRESS. WILL CONTINUE TO MONITOR.
--- NOTE | 2019-06-16 12:34 | Consultation ---
History of Present Illness General Chief Complaint: Abdominal Pain Present Illness Allergies: Coded Allergies: No Known Allergies (Unverified , 06/15/19) Medication History Discontinued Medications Acetaminophen* (Acetaminophen 325MG Tablet*), 325 MG ORAL Q4H PRN for Pain Scale (3-5), (Reported) Discontinued Reason: MD discontinued med Amino Acids/Protein Hydrolys (Pro-Stat Liquid), 30 ML ORAL TWICE A DAY, ( Reported) Discontinued Reason: MD discontinued med Ascorbic Acid* (Vitamin C*), 250 MG ORAL DAILY, (Reported) Discontinued Reason: MD discontinued med Bisacodyl* (Dulcolax*), 10 MG ORAL DAILY, (Reported) Discontinued Reason: MD discontinued med Docusate Sodium* (Docusate Sodium*), 100 MG ORAL TWICE A DAY, (Reported) Discontinued Reason: MD discontinued med Furosemide* (Lasix*), 40 MG ORAL TWICE A DAY, (Reported) Discontinued Reason: MD discontinued med Gabapentin* (Gabapentin*), 600 MG ORAL THREE TIMES A DAY, (Reported) Discontinued Reason: MD discontinued med Hydrocodone Bit/Acetaminophen 5-325* ([place]phone 5-325*), 1 TAB ORAL Q4H PRN for For Pain, (Reported) Discontinued Reason: MD discontinued med Lactulose (Lactulose*), 30 ML ORAL, (Reported) Discontinued Reason: MD discontinued med Lisinopril (Lisinopril*), 10 MG ORAL DAILY, (Reported) Discontinued Reason: MD discontinued med Magnesium Hydroxide* (Milk Of Magnesia*), 30 ML ORAL DAILY, (Reported) Discontinued Reason: MD discontinued med Multivitamin (Multi-Vitamin Daily), 1 EACH PO, (Reported) Discontinued Reason: MD discontinued med Na Phos,M-B/Na Phos,Di-Ba (Fleet Enema), 133 ML RC, (Reported) Discontinued Reason: MD discontinued med Nifedipine (Nifedipine*), 30 MG ORAL DAILY, (Reported) Discontinued Reason: MD discontinued med Ondansetron (Zofran), 4 MG ORAL Q6H PRN for Nausea & Vomiting, (Reported) Discontinued Reason: MD discontinued med Spironolactone* (Aldactone*), 25 MG ORAL DAILY, (Reported) Discontinued Reason: MD discontinued med Patient History Healthcare decision maker Resuscitation status Full Code Advanced Directive on File No Physical Exam Last 24 Hour Vital Signs Date Time Temp Pulse Resp B/P (MAP) Pulse Ox O2 Delivery O2 Flow Rate FiO2 06/16/19 11:30 84 16 117/66 (83) 100 06/16/19 11:00 91 21 110/62 (78) 100 06/16/19 10:30 83 14 107/57 (74) 100 06/16/19 10:00 86 12 103/58 (73) 99 06/16/19 09:30 87 15 85/71 (76) 100 06/16/19 09:00 87 16 109/65 (80) 100 06/16/19 08:45 87 15 111/63 (79) 100 06/16/19 08:30 87 16 122/64 (83) 100 06/16/19 08:30 122/64 06/16/19 08:30 86 15 114/63 (80) 100 06/16/19 08:15 87 15 114/63 (80) 100 06/16/19 08:00 87 06/16/19 08:00 111/57 06/16/19 08:00 97.8 87 13 111/57 (75) 99 06/16/19 08:00 Room Air 06/16/19 07:45 88 14 112/61 (78) 99 06/16/19 07:30 86 14 122/69 (86) 99 06/16/19 07:13 120/68 06/16/19 07:13 122/69 06/16/19 07:00 92 20 122/69 (86) 100 06/16/19 06:30 93 20 112/29 (56) 100 06/16/19 06:00 100/60 06/16/19 06:00 95 20 110/29 (56) 100 06/16/19 05:30 96 18 64/29 (41) 100 06/16/19 05:00 90 20 99/50 (66) 100 06/16/19 05:00 64/29 06/16/19 04:00 Room Air 06/16/19 04:00 103/52 06/16/19 04:00 98.2 93 20 100/55 (70) 100 06/16/19 03:31 101 06/16/19 03:30 Room Air 06/16/19 03:30 95 20 103/52 (69) 100 06/16/19 03:15 98.1 101 22 103/61 (75) 100 06/16/19 03:10 103/61 06/16/19 03:00 98.1 94 14 95/51 99 Room Air 06/16/19 02:30 98.1 94 14 95/51 99 Room Air 06/16/19 02:00 98.1 91 16 99/52 98 Room Air 06/16/19 01:05 98.1 93 16 95/46 98 Room Air 06/16/19 01:04 95/46 06/16/19 00:59 84/45 06/16/19 00:54 94/43 06/16/19 00:49 93/44 06/16/19 00:44 90/48 06/16/19 00:39 104/48 06/16/19 00:34 88/40 06/16/19 00:30 98.1 98 21 75/43 99 Room Air 06/16/19 00:29 75/43 06/15/19 23:30 98.1 98 21 53/20 99 Room Air 06/15/19 22:30 98.1 98 21 56/46 99 Room Air 06/15/19 21:30 98.1 116 21 107/56 100 Room Air 06/15/19 20:30 98.1 115 22 95/53 99 Room Air 06/15/19 19:18 98.1 120 22 75/43 98 Room Air 06/15/19 19:18 120 22 Room Air 06/15/19 19:12 98.1 120 22 100/58 (72) 98 Room Air Intake and Output 06/15/19 06/16/19 19:00 07:00 Intake Total 465.24 ml Output Total 1700 ml Balance -1234.76 ml Intake Oral 0 ml IV Total 465.24 ml Output Urine Total 1700 ml # Voids 2 # Bowel Movements 6 Laboratory Tests Test 06/15/19 20:56 06/15/19 22:00 06/15/19 23:51 06/16/19 00:00 White Blood Count 9.1 K/UL (4.8-10.8) 7.7 K/UL (4.8-10.8) Red Blood Count 3.16 M/UL (4.70-6.10) L 2.40 M/UL (4.70-6.10) L Hemoglobin 10.3 G/DL (14.2-18.0) L 8.0 G/DL (14.2-18.0) L Hematocrit 28.9 % (42.0-52.0) L 21.8 % (42.0-52.0) L Mean Corpuscular Volume 91 FL (80-99) 91 FL (80-99) Mean Corpuscular Hemoglobin 32.7 PG (27.0-31.0) H 33.4 PG (27.0-31.0) H Mean Corpuscular Hemoglobin Concent 35.8 G/DL (32.0-36.0) 36.6 G/DL (32.0-36.0) H Red Cell Distribution Width 10.1 % (11.6-14.8) L 10.6 % (11.6-14.8) L Platelet Count 109 K/UL (150-450) L 89 K/UL (150-450) L Mean Platelet Volume 4.9 FL (6.5-10.1) L 4.4 FL (6.5-10.1) L Neutrophils (%) (Auto) 76.4 % (45.0-75.0) H % (45.0-75.0) Lymphocytes (%) (Auto) 9.1 % (20.0-45.0) L % (20.0-45.0) Monocytes (%) (Auto) 11.5 % (1.0-10.0) H % (1.0-10.0) Eosinophils (%) (Auto) 1.3 % (0.0-3.0) % (0.0-3.0) Basophils (%) (Auto) 1.6 % (0.0-2.0) % (0.0-2.0) Prothrombin Time 11.4 SEC (9.30-11.50) Prothromb Time International Ratio 1.1 (0.9-1.1) Activated Partial Thromboplast Time 22 SEC (23-33) L Sodium Level 129 MMOL/L (136-145) L Potassium Level 6.2 MMOL/L (3.5-5.1) *H Chloride Level 94 MMOL/L (98-107) L Carbon Dioxide Level 17 MMOL/L (21-32) L Anion Gap 18 mmol/L (5-15) H Blood Urea Nitrogen 90 mg/dL (7-18) H Creatinine 5.3 MG/DL (0.55-1.30) H Estimat Glomerular Filtration Rate 11.4 mL/min (>60) Glucose Level 93 MG/DL (74-106) Lactic Acid Level 0.90 mmol/L (0.4-2.0) Calcium Level 10.2 MG/DL (8.5-10.1) H Total Bilirubin 0.8 MG/DL (0.2-1.0) Aspartate Amino Transf (AST/SGOT) 117 U/L (15-37) H Alanine Aminotransferase (ALT/SGPT) 28 U/L (12-78) Alkaline Phosphatase 88 U/L (46-116) Troponin I 0.215 ng/mL (0.000-0.056) 0.196 ng/mL (0.000-0.056) Total Protein 8.3 G/DL (6.4-8.2) H Albumin 4.0 G/DL (3.4-5.0) Globulin 4.3 g/dL Albumin/Globulin Ratio 0.9 (1.0-2.7) L Lipase 206 U/L (73-393) Urine Color Yellow Urine Appearance Clear Urine pH 5 (4.5-8.0) Urine Specific [place] 1.010 (1.005-1.035) Urine Protein 1+ (NEGATIVE) H Urine Glucose (UA) Negative (NEGATIVE) Urine Ketones 1+ (NEGATIVE) H Urine Blood 5+ (NEGATIVE) H Urine Nitrite Negative (NEGATIVE) Urine Bilirubin Negative (NEGATIVE) Urine Urobilinogen Normal MG/DL (0.0-1.0) Urine Leukocyte Esterase Negative (NEGATIVE) Urine RBC 30-40 /HPF (0 - 0) H Urine WBC 0-2 /HPF (0 - 0) Urine Squamous Epithelial Cells None /LPF (NONE/OCC) Urine Bacteria Few /HPF (NONE) Ammonia 63 umol/L (11-32) H Urine Opiates Screen Positive (NEGATIVE) H Urine Barbiturates Screen Negative (NEGATIVE) Phencyclidine (PCP) Screen Negative (NEGATIVE) Urine Amphetamines Screen Positive (NEGATIVE) H Urine Benzodiazepines Screen Negative (NEGATIVE) Urine Cocaine Screen Negative (NEGATIVE) Urine Marijuana (THC) Screen Negative (NEGATIVE) Phosphorus Level 6.1 MG/DL (2.5-4.9) H Magnesium Level 2.7 MG/DL (1.8-2.4) H Test 06/16/19 06:45 06/16/19 10:00 White Blood Count 6.7 K/UL (4.8-10.8) Red Blood Count 3.06 M/UL (4.70-6.10) L Hemoglobin 10.1 G/DL (14.2-18.0) L Hematocrit 28.3 % (42.0-52.0) L Mean Corpuscular Volume 92 FL (80-99) Mean Corpuscular Hemoglobin 32.9 PG (27.0-31.0) H Mean Corpuscular Hemoglobin Concent 35.6 G/DL (32.0-36.0) Red Cell Distribution Width 11.5 % (11.6-14.8) L Platelet Count 103 K/UL (150-450) L Mean Platelet Volume 4.1 FL (6.5-10.1) L Neutrophils (%) (Auto) 70.7 % (45.0-75.0) Lymphocytes (%) (Auto) 11.7 % (20.0-45.0) L Monocytes (%) (Auto) 15.5 % (1.0-10.0) H Eosinophils (%) (Auto) 1.0 % (0.0-3.0) Basophils (%) (Auto) 1.1 % (0.0-2.0) Sodium Level 138 MMOL/L (136-145) Potassium Level 6.4 MMOL/L (3.5-5.1) *H 5.7 MMOL/L (3.5-5.1) H Chloride Level 106 MMOL/L (98-107) Carbon Dioxide Level 18 MMOL/L (21-32) L Anion Gap 13 mmol/L (5-15) Blood Urea Nitrogen 80 mg/dL (7-18) H Creatinine 4.3 MG/DL (0.55-1.30) H Estimat Glomerular Filtration Rate 14.5 mL/min (>60) Glucose Level 97 MG/DL (74-106) Calcium Level 9.2 MG/DL (8.5-10.1) Total Bilirubin 0.8 MG/DL (0.2-1.0) Aspartate Amino Transf (AST/SGOT) 119 U/L (15-37) H Alanine Aminotransferase (ALT/SGPT) 26 U/L (12-78) Alkaline Phosphatase 74 U/L (46-116) Troponin I 0.142 ng/mL (0.000-0.056) Total Protein 7.8 G/DL (6.4-8.2) Albumin 3.3 G/DL (3.4-5.0) L Globulin 4.5 g/dL Albumin/Globulin Ratio 0.7 (1.0-2.7) L Height (Feet): 5 Height (Inches): 11.00 Weight (Pounds): 242 Medications Current Medications Medications (Trade) Dose Ordered Sig/Kelley Route PRN Reason Start Time Stop Time Status Last Admin Dose Admin Dextrose/Sodium Chloride 1,000 ml @ 150 mls/hr Q6H40M IV 06/16/19 11:00 07/16/19 10:59 06/16/19 11:10 Lorazepam (Ativan 2mg/ml 1ml) 1 mg Q4H PRN IV AGITATION 06/16/19 09:15 06/23/19 09:14 Nitroglycerin (Ntg) 1 patch Q24H TDERMAL 06/16/19 12:00 07/16/19 11:59 Norepinephrine Bitartrate 4 mg/ Dextrose 250 ml @ 0 mls/hr Q24H IV 06/16/19 08:00 07/16/19 07:59 06/16/19 07:13 Octreotide Acetate 500 mcg/ Sodium Chloride 500 ml @ 25 mls/hr Q20H IV 06/16/19 12:30 07/16/19 12:29 Pantoprazole (Protonix) 40 mg EVERY 12 HOURS IVP 06/16/19 11:00 07/16/19 10:59 06/16/19 11:35 Sucralfate (Carafate) 1 gm FOUR TIMES A DAY ORAL 06/16/19 13:00 07/16/19 12:59 Tamsulosin HCl (Flomax) 0.4 mg BID ORAL 06/16/19 11:00 07/16/19 10:59 06/16/19 11:35 Thiamine HCl 100 mg/Dextrose 56 ml @ 112 mls/hr Q24H IVPB 06/16/19 12:00 07/16/19 11:59 Assessment/Plan Assessment/Plan: Hematology Consultation Note REQ MD: Rachel Neely RFC: Anemia and low platelets eval DOS: 06/16/19 ID 54-year-old male presents for evaluation of abdominal pain and hematemesis.States he is a diabetic and may have missed some doses of insulin over the past few days. He is a very poor historian, inattentive, staring off during my conversations with him. His responses are brief and sometimes nonsensical. EMS states he was complaining of hematemesis and abdominal pain that began earlier today. He reports heavy alcohol use over the past few days. Estimates a proximally 5 episodes of emesis and diarrhea throughout the day. Denies bloody stools or melena. Does not take blood thinners according to patient. Patient is currently altered and most of the history obtained from rn as well as from emr, jenn Cortes the Rn.Currently started on octreotide gtt by gi PMH: Diabetes PSH: Possible hernia repair Allergies: Denies Social Hx: Heavy alcohol use, reported IV drug abuse Allergies: Coded Allergies: No Known Allergies (Unverified , 06/15/19) Past Medical History: No Stated History All Other Systems: negative except mentioned in HPI Physical Exam: Vitals: reviewed General Appearance: NAD HEENT: normocephalic, atraumatic Neck: non-tender, normal alignment Respiratory/Chest: normal breath sounds bilaterally Cardiovascular/Chest: normal peripheral pulses, normal rate Abdomen: ++ umbilical hernia is reducible Extremities: normal range of motion Labs: noted Imaging: noted Assessment and Recs: # Anemia due to underlying GI bleed -- patient presents with occult+ bleeding --> as per GI eval, may need endoscopy --> has been started on ppi --> cea has been ordered --> Hgb goal >7. Transfuse prn. --> Will sign consent if necessary --> Epogen or iron at this time is not particularly indicated --> Consider octreotide gtt as per gi eval ( started) --> Medications have been reviewed # Thrombocytopenia - potential causes multifactorial, evaluate liver and viral etiologies to begin, also could be related to underlying medications patient has received. (may be due to consumption) initial CT scan showed questionable liver nodularity, must r/o cirrhosis --> ALSO DID NOTE AST/ALT 2:1 --> Hep panel and HIV ordered --> US abd to evaluate for cirrhosis and hsm ordered --> Peripheral smear ordered to evaluate for blasts /schistocytes --> abx and other meds have been reviewed --> ok for ppx if plt >50k w/ either heparin or lovenox --> Transfuse if Plt < 20k and fever, or if Plt < 10k without fever # Hyperkalemia --> kayxelate as per rneal # Hyponatremia --> IVF started # Elevated troponin --> per cards --> r/o endocarditis with cards # Acute kidney failure --> likely due to hematemesis, violume down # Hypotension is on pressors prn # Hallucination # Encephalopathy # Dvt ppx scds The timing of this note does not necessarily reflect the time of the patient was seen. Greatly appreciate consultation. Jin Herrera MD Jun 16, 2019 12:34
--- NOTE | 2019-06-16 12:46 | NUR ---
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 98.0 HR 120 RR 22 B/P 75/43 NA 129 K 6.2 BUN 90 CR 5.3 ALK 117 TROP 0.215 TOX SCREEN+ OPIATES,AMPHETAMINES CHEST/ABD CT= NEGATIVE IS: NS X 2 LITERS REGULAR INSULIN IV CALCIUM GLUCONATE IV D50 IV ROCEPHIN IV ADMITTED TO ICU ICU STATUS DCP PENDING HOSPITAL STAY
[2019-06-16] MEDS: Thiamine HCl 100 MG in D5W 55 ML IVPB SCH (13:21)
[2019-06-16] MEDS: Sucralfate 1gm tab ORAL SCH ×3 (13:21→21:25)
--- NOTE | 2019-06-16 14:46 | Diagnostic Imaging Report ---
Indication: Status post central line placement Technique: One view of the chest Comparison: none Findings: There is a right jugular central venous catheter, tip of which projects deep within the right atrium. The lungs and pleural spaces are clear. There is no pneumothorax. The heart size is normal. Impression: Satisfactory central line placement. No radiographically evident complication
--- NOTE | 2019-06-16 15:16 | Cardiology Report ---
APPROVED REPORT EXAM: Two-dimensional and M-mode echocardiogram with Doppler and color Doppler. INDICATION Congestive Heart Failure M-Mode DIMENSIONS IVSd1.6 (0.7-1.1cm)Left Atrium (MM)5.2 (1.6-4.0cm) LVDd4.7 (3.5-5.6cm)Aortic Root3.9 (2.0-3.7cm) PWd1.5 (0.7-1.1cm)Aortic Cusp Exc.1.8 (1.5-2.0cm) IVSs1.8 cm LVDs2.8 (2.5-4.0cm) PWs1.4 cm Normal left ventricular chamber size, systolic function and wall motion . Left ventricular ejection fraction estimated to be 65%. No left ventricular hypertrophy . All other cardiac chamber sizes are within normal limits. Focal aortic valve sclerosis with adequate cusp excursion. Mildly Thickened mitral valve leaflets with normal excursion. pulmonic valve not well visualized. Normal tricuspid valve structure. IVC at normal size with physiologic collaps A color flow and spectral Doppler study was performed and revealed: No aortic regurgitation. Trace mitral regurgitation. Mitral inflow indicates normal left ventricular diastolic function. Trace tricuspid regurgitation. Tricuspid systolic velocities suggests peak right ventricular systolic pressure of 21mmHg. Trace pulmonic regurgitation present .
--- NOTE | 2019-06-16 15:32 | Diagnostic Imaging Report ---
Indication: Abnormal liver function tests. Abnormal renal function tests Technique: Padron-scale and duplex images of the upper abdomen were obtained Comparison: No comparison sonograms. Reference made to CT scan 06/15/2019 Findings: Gallbladder is unremarkable, without stones, wall thickening, nor pericholecystic fluid. Sonographic Ricardo's sign is negative. Common bile duct measures 5 mm in diameter. No intrahepatic biliary ductal dilatation. Liver demonstrates coarsened echogenicity. It demonstrates slight surface nodularity. Note that the left lobe is not well visualized. Portal vein and hepatic veins are patent. Pancreas is incompletely visualized due to overlying bowel gas, visualized portions are unremarkable. The spleen is enlarged, measuring 14.8 cm long axis dimension. Left kidney measures 13.2 cm in length. Right kidney measures 10.2 cm length. Both kidneys demonstrate normal echogenicity. There is no hydronephrosis. Right kidney demonstrates a small cyst. No focal abnormality on the left. The bladder is distended, calculated volume 1140 mL. Calculated postvoid volume is 209 mL. Abdominal aorta is partially obscured by bowel gas, visualized portions are non-aneurysmal . Impression: Limited exam, with suboptimal visualization of the pancreas, abdominal aorta, and left hepatic lobe Hepatomegaly. Coarse hepatic echogenicity and surface nodularity, suspicious for early cirrhotic change Negative for gallstones or dilated bile ducts Distended prevoid bladder, volume 11 50 mL. Postvoid volume is 209 mL Splenomegaly Incidental finding small right renal cyst
--- NOTE | 2019-06-16 15:40 | NUR ---
NURSE NOTES: SPOKE WITH DR MOSS RE NTG PATCH AND THAT IT'S OK TO ADMIN THE SAID MEDS. WILL CONITNUE TO MONITOR.
--- NOTE | 2019-06-16 15:56 | Cardiology Report ---
APPROVED REPORT EKG Measurement Heart [id number] Sinus tachycardia Low voltage QRS Septal infarct, age undetermined Abnormal ECG
--- NOTE | 2019-06-16 16:30 | Consultation ---
DATE OF CONSULTATION: 06/16/2019 PAIN MANAGEMENT CONSULTATION CONSULTING PHYSICIAN: Curtis Fischer M.D. REFERRING PHYSICIAN: Rachel Washington M.D. PHYSICIAN ALLOY WEIGHER: Venita Casas CHIEF COMPLAINT: Altered mental status. HISTORY OF PRESENT ILLNESS: This is a 54-year-old male, who is being seen on the ICU of [facility] for initial pain management consultation. The patient was brought to the emergency room yesterday with complaints of hematemesis, very poor historian, not conversing due to his altered mental status. As per ER chart, the patient was brought in by the EMS due to complaints of hematemesis, had been drinking heavily alcohol. Urine toxicology found the patient to be positive for opiates and amphetamines. The patient has been seen by pipelines supervisor and was started on albumin. Checking the potassium due to the ER laboratory showing potassium being 6.4. Ammonia level was 63. The patient will be seen by ship fastener due to troponin. At this time, the patient is in bed, no signs of pain or distress. Denies pain when awaken. We were consulted so that the patient would have adequate pain control while here in the hospital. At this time, he is not complaining of any pain, also his kidney function BUN is 80 and creatinine is 4.3. Again, the patient is not complaining of pain, no opioid medication will be started at this time. We will start Ativan 1 mg IV every 4 hours as needed for agitation. PAST MEDICAL HISTORY: As per chart, diabetes. PAST SURGICAL HISTORY: Possible hernia repair. 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 ALLERGIES: No known drug allergies. MEDICATIONS: Tylenol, ascorbic acid, Dulcolax, Lasix, [place], lactulose, lisinopril, milk of magnesia, multivitamin, Fleet enema, Zofran, Aldactone. REVIEW OF SYSTEMS: Unable to obtain due to the patient's mental status. PHYSICAL EXAMINATION: VITAL SIGNS: Blood pressure 116/63, heart rate is 87, oxygen saturation 90%, respirations 15, temperature 97.8 degrees Fahrenheit. HEENT: Normocephalic. NECK: Range of motion is decreased due to the patient's condition LUNGS: Decreased breath sounds bilaterally. HEART: S1 and S2 regular. ABDOMEN: Obese. BACK: Range of motion is decreased in flexion and extension. EXTREMITIES: Upper and lower extremity range of motion is decreased due the patient's condition. No cyanosis. No clubbing. Edema noted in bilateral lower extremities. Sensory is reduced. Reflexes are not obtainable. No adenopathy. ASSESSMENT AND PLAN: This is a 54-year-old male with polysubstance abuse, altered mental status. At this time, the patient will be started on Ativan 1 mg IV every 4 hours as needed for agitation. He is on Levophed at this time due to hypotension, being seen by ship fastener for this issue. If the patient starts showing signs of withdrawals, possible need for clonidine to be started for any hypertension episodes. At this time, the patient was discussed with Dr. Fischer and Dr. Fischer concurred. We will follow up with the patient. Thank you very much for the courtesy of this consultation. Curtis Fischer M.D. LAM Casas DR: Jignesh JOB#: [id number] CC: [email or web address]
--- NOTE | 2019-06-16 17:19 | Cardiac Electrophysiology PN ---
Subjective Subjective [id number] Objective Last 24 Hour Vital Signs Date Time Temp Pulse Resp B/P (MAP) Pulse Ox O2 Delivery O2 Flow Rate FiO2 06/16/19 15:49 108/52 06/16/19 14:00 107/64 06/16/19 13:00 79 13 105/59 (74) 100 06/16/19 13:00 105/59 06/16/19 12:30 79 13 100/56 (71) 100 06/16/19 12:15 78 13 100/56 (71) 100 06/16/19 12:00 84 06/16/19 12:00 98.0 81 13 106/63 (77) 100 06/16/19 12:00 139/82 06/16/19 12:00 Room Air 06/16/19 11:45 84 17 106/63 (77) 100 06/16/19 11:30 84 16 117/66 (83) 100 06/16/19 11:30 117/66 06/16/19 11:00 91 21 110/62 (78) 100 06/16/19 11:00 119/60 06/16/19 10:30 83 14 107/57 (74) 100 06/16/19 10:00 86 12 103/58 (73) 99 06/16/19 10:00 103/57 06/16/19 09:30 87 15 85/71 (76) 100 06/16/19 09:00 110/64 06/16/19 09:00 87 16 109/65 (80) 100 06/16/19 08:45 87 15 111/63 (79) 100 06/16/19 08:30 87 16 122/64 (83) 100 06/16/19 08:30 122/64 06/16/19 08:30 86 15 114/63 (80) 100 06/16/19 08:15 87 15 114/63 (80) 100 06/16/19 08:00 87 06/16/19 08:00 111/57 06/16/19 08:00 97.8 87 13 111/57 (75) 99 06/16/19 08:00 Room Air 06/16/19 07:45 88 14 112/61 (78) 99 06/16/19 07:30 86 14 122/69 (86) 99 06/16/19 07:13 120/68 06/16/19 07:13 122/69 06/16/19 07:00 92 20 122/69 (86) 100 06/16/19 06:30 93 20 112/29 (56) 100 06/16/19 06:00 100/60 06/16/19 06:00 95 20 110/29 (56) 100 06/16/19 05:30 96 18 64/29 (41) 100 06/16/19 05:00 90 20 99/50 (66) 100 06/16/19 05:00 64/29 06/16/19 04:00 Room Air 06/16/19 04:00 103/52 06/16/19 04:00 98.2 93 20 100/55 (70) 100 06/16/19 03:31 101 06/16/19 03:30 Room Air 06/16/19 03:30 95 20 103/52 (69) 100 06/16/19 03:15 98.1 101 22 103/61 (75) 100 06/16/19 03:10 103/61 06/16/19 03:00 98.1 94 14 95/51 99 Room Air 06/16/19 02:30 98.1 94 14 95/51 99 Room Air 06/16/19 02:00 98.1 91 16 99/52 98 Room Air 06/16/19 01:05 98.1 93 16 95/46 98 Room Air 06/16/19 01:04 95/46 06/16/19 00:59 84/45 06/16/19 00:54 94/43 06/16/19 00:49 93/44 06/16/19 00:44 90/48 06/16/19 00:39 104/48 06/16/19 00:34 88/40 06/16/19 00:30 98.1 98 21 75/43 99 Room Air 06/16/19 00:29 75/43 06/15/19 23:30 98.1 98 21 53/20 99 Room Air 06/15/19 22:30 98.1 98 21 56/46 99 Room Air 06/15/19 21:30 98.1 116 21 107/56 100 Room Air 06/15/19 20:30 98.1 115 22 95/53 99 Room Air 06/15/19 19:18 98.1 120 22 75/43 98 Room Air 06/15/19 19:18 120 22 Room Air 06/15/19 19:12 98.1 120 22 100/58 (72) 98 Room Air Intake and Output 06/15/19 06/16/19 19:00 07:00 Intake Total 465.24 ml Output Total 1700 ml Balance -1234.76 ml Intake Oral 0 ml IV Total 465.24 ml Output Urine Total 1700 ml # Voids 2 # Bowel Movements 6 Laboratory Tests Test 06/15/19 20:56 06/15/19 22:00 06/15/19 23:51 06/16/19 00:00 White Blood Count 9.1 K/UL (4.8-10.8) 7.7 K/UL (4.8-10.8) Red Blood Count 3.16 M/UL (4.70-6.10) L 2.40 M/UL (4.70-6.10) L Hemoglobin 10.3 G/DL (14.2-18.0) L 8.0 G/DL (14.2-18.0) L Hematocrit 28.9 % (42.0-52.0) L 21.8 % (42.0-52.0) L Mean Corpuscular Volume 91 FL (80-99) 91 FL (80-99) Mean Corpuscular Hemoglobin 32.7 PG (27.0-31.0) H 33.4 PG (27.0-31.0) H Mean Corpuscular Hemoglobin Concent 35.8 G/DL (32.0-36.0) 36.6 G/DL (32.0-36.0) H Red Cell Distribution Width 10.1 % (11.6-14.8) L 10.6 % (11.6-14.8) L Platelet Count 109 K/UL (150-450) L 89 K/UL (150-450) L Mean Platelet Volume 4.9 FL (6.5-10.1) L 4.4 FL (6.5-10.1) L Neutrophils (%) (Auto) 76.4 % (45.0-75.0) H % (45.0-75.0) Lymphocytes (%) (Auto) 9.1 % (20.0-45.0) L % (20.0-45.0) Monocytes (%) (Auto) 11.5 % (1.0-10.0) H % (1.0-10.0) Eosinophils (%) (Auto) 1.3 % (0.0-3.0) % (0.0-3.0) Basophils (%) (Auto) 1.6 % (0.0-2.0) % (0.0-2.0) Prothrombin Time 11.4 SEC (9.30-11.50) Prothromb Time International Ratio 1.1 (0.9-1.1) Activated Partial Thromboplast Time 22 SEC (23-33) L Sodium Level 129 MMOL/L (136-145) L Potassium Level 6.2 MMOL/L (3.5-5.1) *H Chloride Level 94 MMOL/L (98-107) L Carbon Dioxide Level 17 MMOL/L (21-32) L Anion Gap 18 mmol/L (5-15) H Blood Urea Nitrogen 90 mg/dL (7-18) H Creatinine 5.3 MG/DL (0.55-1.30) H Estimat Glomerular Filtration Rate 11.4 mL/min (>60) Glucose Level 93 MG/DL (74-106) Lactic Acid Level 0.90 mmol/L (0.4-2.0) Calcium Level 10.2 MG/DL (8.5-10.1) H Total Bilirubin 0.8 MG/DL (0.2-1.0) Aspartate Amino Transf (AST/SGOT) 117 U/L (15-37) H Alanine Aminotransferase (ALT/SGPT) 28 U/L (12-78) Alkaline Phosphatase 88 U/L (46-116) Troponin I 0.215 ng/mL (0.000-0.056) 0.196 ng/mL (0.000-0.056) Total Protein 8.3 G/DL (6.4-8.2) H Albumin 4.0 G/DL (3.4-5.0) Globulin 4.3 g/dL Albumin/Globulin Ratio 0.9 (1.0-2.7) L Lipase 206 U/L (73-393) Urine Color Yellow Urine Appearance Clear Urine pH 5 (4.5-8.0) Urine Specific [place] 1.010 (1.005-1.035) Urine Protein 1+ (NEGATIVE) H Urine Glucose (UA) Negative (NEGATIVE) Urine Ketones 1+ (NEGATIVE) H Urine Blood 5+ (NEGATIVE) H Urine Nitrite Negative (NEGATIVE) Urine Bilirubin Negative (NEGATIVE) Urine Urobilinogen Normal MG/DL (0.0-1.0) Urine Leukocyte Esterase Negative (NEGATIVE) Urine RBC 30-40 /HPF (0 - 0) H Urine WBC 0-2 /HPF (0 - 0) Urine Squamous Epithelial Cells None /LPF (NONE/OCC) Urine Bacteria Few /HPF (NONE) Ammonia 63 umol/L (11-32) H Urine Opiates Screen Positive (NEGATIVE) H Urine Barbiturates Screen Negative (NEGATIVE) Phencyclidine (PCP) Screen Negative (NEGATIVE) Urine Amphetamines Screen Positive (NEGATIVE) H Urine Benzodiazepines Screen Negative (NEGATIVE) Urine Cocaine Screen Negative (NEGATIVE) Urine Marijuana (THC) Screen Negative (NEGATIVE) Phosphorus Level 6.1 MG/DL (2.5-4.9) H Magnesium Level 2.7 MG/DL (1.8-2.4) H Test 06/16/19 01:00 06/16/19 06:45 06/16/19 10:00 Hepatitis A IgM Antibody Pending Hepatitis B Surface Antigen Pending Hepatitis B Core IgM Antibody Pending Hepatitis C Antibody Pending HIV (1&2) Antibody Rapid Negative (NEGATIVE) White Blood Count 6.7 K/UL (4.8-10.8) Red Blood Count 3.06 M/UL (4.70-6.10) L Hemoglobin 10.1 G/DL (14.2-18.0) L Hematocrit 28.3 % (42.0-52.0) L Mean Corpuscular Volume 92 FL (80-99) Mean Corpuscular Hemoglobin 32.9 PG (27.0-31.0) H Mean Corpuscular Hemoglobin Concent 35.6 G/DL (32.0-36.0) Red Cell Distribution Width 11.5 % (11.6-14.8) L Platelet Count 103 K/UL (150-450) L Mean Platelet Volume 4.1 FL (6.5-10.1) L Neutrophils (%) (Auto) 70.7 % (45.0-75.0) Lymphocytes (%) (Auto) 11.7 % (20.0-45.0) L Monocytes (%) (Auto) 15.5 % (1.0-10.0) H Eosinophils (%) (Auto) 1.0 % (0.0-3.0) Basophils (%) (Auto) 1.1 % (0.0-2.0) Sodium Level 138 MMOL/L (136-145) Potassium Level 6.4 MMOL/L (3.5-5.1) *H 5.7 MMOL/L (3.5-5.1) H Chloride Level 106 MMOL/L (98-107) Carbon Dioxide Level 18 MMOL/L (21-32) L Anion Gap 13 mmol/L (5-15) Blood Urea Nitrogen 80 mg/dL (7-18) H Creatinine 4.3 MG/DL (0.55-1.30) H Estimat Glomerular Filtration Rate 14.5 mL/min (>60) Glucose Level 97 MG/DL (74-106) Calcium Level 9.2 MG/DL (8.5-10.1) Total Bilirubin 0.8 MG/DL (0.2-1.0) Aspartate Amino Transf (AST/SGOT) 119 U/L (15-37) H Alanine Aminotransferase (ALT/SGPT) 26 U/L (12-78) Alkaline Phosphatase 74 U/L (46-116) Troponin I 0.142 ng/mL (0.000-0.056) Total Protein 7.8 G/DL (6.4-8.2) Albumin 3.3 G/DL (3.4-5.0) L Globulin 4.5 g/dL Albumin/Globulin Ratio 0.7 (1.0-2.7) L Salvador Ellington MD Jun 16, 2019 17:19
--- NOTE | 2019-06-16 17:27 | NUR ---
NURSE NOTES: SEEN AND EXAMINED BY DR VENTURA AND ORDER TO D/C NTG PATCH. MADE AWARE OF BP. WILL CONTINUE TO MONITOR.
--- NOTE | 2019-06-16 17:49 | General Progress Note ---
Assessment/Plan Assessment/Plan: GI CONSULT patient seen in ICU. Full note to follow Thank you Nancy Gibbs MD Subjective Allergies: Coded Allergies: No Known Allergies (Unverified , 06/15/19) Objective Last 24 Hour Vital Signs Date Time Temp Pulse Resp B/P (MAP) Pulse Ox O2 Delivery O2 Flow Rate FiO2 06/16/19 17:37 92/53 06/16/19 15:49 108/52 06/16/19 14:00 107/64 06/16/19 13:00 79 13 105/59 (74) 100 06/16/19 13:00 105/59 06/16/19 12:30 79 13 100/56 (71) 100 06/16/19 12:15 78 13 100/56 (71) 100 06/16/19 12:00 84 06/16/19 12:00 98.0 81 13 106/63 (77) 100 06/16/19 12:00 139/82 06/16/19 12:00 Room Air 06/16/19 11:45 84 17 106/63 (77) 100 06/16/19 11:30 84 16 117/66 (83) 100 06/16/19 11:30 117/66 06/16/19 11:00 91 21 110/62 (78) 100 06/16/19 11:00 119/60 06/16/19 10:30 83 14 107/57 (74) 100 06/16/19 10:00 86 12 103/58 (73) 99 06/16/19 10:00 103/57 06/16/19 09:30 87 15 85/71 (76) 100 06/16/19 09:00 110/64 06/16/19 09:00 87 16 109/65 (80) 100 06/16/19 08:45 87 15 111/63 (79) 100 06/16/19 08:30 87 16 122/64 (83) 100 06/16/19 08:30 122/64 06/16/19 08:30 86 15 114/63 (80) 100 06/16/19 08:15 87 15 114/63 (80) 100 06/16/19 08:00 87 06/16/19 08:00 111/57 06/16/19 08:00 97.8 87 13 111/57 (75) 99 06/16/19 08:00 Room Air 06/16/19 07:45 88 14 112/61 (78) 99 06/16/19 07:30 86 14 122/69 (86) 99 06/16/19 07:13 120/68 06/16/19 07:13 122/69 06/16/19 07:00 92 20 122/69 (86) 100 06/16/19 06:30 93 20 112/29 (56) 100 06/16/19 06:00 100/60 06/16/19 06:00 95 20 110/29 (56) 100 06/16/19 05:30 96 18 64/29 (41) 100 06/16/19 05:00 90 20 99/50 (66) 100 06/16/19 05:00 64/29 06/16/19 04:00 Room Air 06/16/19 04:00 103/52 06/16/19 04:00 98.2 93 20 100/55 (70) 100 06/16/19 03:31 101 06/16/19 03:30 Room Air 06/16/19 03:30 95 20 103/52 (69) 100 06/16/19 03:15 98.1 101 22 103/61 (75) 100 06/16/19 03:10 103/61 06/16/19 03:00 98.1 94 14 95/51 99 Room Air 06/16/19 02:30 98.1 94 14 95/51 99 Room Air 06/16/19 02:00 98.1 91 16 99/52 98 Room Air 06/16/19 01:05 98.1 93 16 95/46 98 Room Air 06/16/19 01:04 95/46 06/16/19 00:59 84/45 06/16/19 00:54 94/43 06/16/19 00:49 93/44 06/16/19 00:44 90/48 06/16/19 00:39 104/48 06/16/19 00:34 88/40 06/16/19 00:30 98.1 98 21 75/43 99 Room Air 06/16/19 00:29 75/43 06/15/19 23:30 98.1 98 21 53/20 99 Room Air 06/15/19 22:30 98.1 98 21 56/46 99 Room Air 06/15/19 21:30 98.1 116 21 107/56 100 Room Air 06/15/19 20:30 98.1 115 22 95/53 99 Room Air 06/15/19 19:18 98.1 120 22 75/43 98 Room Air 06/15/19 19:18 120 22 Room Air 06/15/19 19:12 98.1 120 22 100/58 (72) 98 Room Air Intake and Output 06/15/19 06/16/19 19:00 07:00 Intake Total 465.24 ml Output Total 1700 ml Balance -1234.76 ml Intake Oral 0 ml IV Total 465.24 ml Output Urine Total 1700 ml # Voids 2 # Bowel Movements 6 Laboratory Tests 06/15/19 20:56: White Blood Count 9.1, Red Blood Count 3.16L, Hemoglobin 10.3L, Hematocrit 28.9L , Mean Corpuscular Volume 91, Mean Corpuscular Hemoglobin 32.7H, Mean Corpuscular Hemoglobin Concent 35.8, Red Cell Distribution Width 10.1L, Platelet Count 109L, Mean Platelet Volume 4.9L, Neutrophils (%) (Auto) 76.4H, Lymphocytes (%) (Auto) 9.1L, Monocytes (%) (Auto) 11.5H, Eosinophils (%) (Auto) 1.3, Basophils (%) (Auto) 1.6, Prothrombin Time 11.4, Prothromb Time International Ratio 1.1, Activated Partial Thromboplast Time 22L, Sodium Level 129L, Potassium Level 6.2*H, Chloride Level 94L, Carbon Dioxide Level 17L, Anion Gap 18H, Blood Urea Nitrogen 90H, Creatinine 5.3H, Estimat Glomerular Filtration Rate 11.4, Glucose Level 93, Lactic Acid Level 0.90, Calcium Level 10.2H, Total Bilirubin 0.8, Aspartate Amino Transf (AST/SGOT) 117H, Alanine Aminotransferase (ALT/SGPT) 28, Alkaline Phosphatase 88, Troponin I 0.215H, Total Protein 8.3H, Albumin 4.0, Globulin 4.3, Albumin/Globulin Ratio 0.9L, Lipase 206 06/15/19 22:00: Urine Color Yellow, Urine Appearance Clear, Urine pH 5, Urine Specific [address] 1.010, Urine Protein 1+H, Urine Glucose (UA) Negative, Urine Ketones 1+H, Urine Blood 5+H, Urine Nitrite Negative, Urine Bilirubin Negative, Urine Urobilinogen Normal, Urine Leukocyte Esterase Negative, Urine RBC 30-40H, Urine WBC 0-2, Urine Squamous Epithelial Cells None, Urine Bacteria Few, Ammonia 63H, Urine Opiates Screen PositiveH, Urine Barbiturates Screen Negative, Phencyclidine (PCP ) Screen Negative, Urine Amphetamines Screen PositiveH, Urine Benzodiazepines Screen Negative, Urine Cocaine Screen Negative, Urine Marijuana (THC) Screen Negative 06/15/19 23:51: White Blood Count 7.7, Red Blood Count 2.40L, Hemoglobin 8.0L, Hematocrit 21.8L , Mean Corpuscular Volume 91, Mean Corpuscular Hemoglobin 33.4H, Mean Corpuscular Hemoglobin Concent 36.6H, Red Cell Distribution Width 10.6L, Platelet Count 89L, Mean Platelet Volume 4.4L, Neutrophils (%) (Auto) , Lymphocytes (%) (Auto) , Monocytes (%) (Auto) , Eosinophils (%) (Auto) , Basophils (%) (Auto) 06/16/19 00:00: Troponin I 0.196H, Phosphorus Level 6.1H, Magnesium Level 2.7H 06/16/19 01:00: Hepatitis A IgM Antibody [Pending], Hepatitis B Surface Antigen [Pending], Hepatitis B Core IgM Antibody [Pending], Hepatitis C Antibody [Pending], HIV (1& 2) Antibody Rapid Negative 06/16/19 06:45: White Blood Count 6.7, Red Blood Count 3.06L, Hemoglobin 10.1L, Hematocrit 28.3L , Mean Corpuscular Volume 92, Mean Corpuscular Hemoglobin 32.9H, Mean Corpuscular Hemoglobin Concent 35.6, Red Cell Distribution Width 11.5L, Platelet Count 103L, Mean Platelet Volume 4.1L, Neutrophils (%) (Auto) 70.7, Lymphocytes (%) (Auto) 11.7L, Monocytes (%) (Auto) 15.5H, Eosinophils (%) (Auto ) 1.0, Basophils (%) (Auto) 1.1, Sodium Level 138, Potassium Level 6.4*H, Chloride Level 106, Carbon Dioxide Level 18L, Anion Gap 13, Blood Urea Nitrogen 80H, Creatinine 4.3H, Estimat Glomerular Filtration Rate 14.5, Glucose Level 97 , Calcium Level 9.2, Total Bilirubin 0.8, Aspartate Amino Transf (AST/SGOT) 119H , Alanine Aminotransferase (ALT/SGPT) 26, Alkaline Phosphatase 74, Troponin I 0.142H, Total Protein 7.8, Albumin 3.3L, Globulin 4.5, Albumin/Globulin Ratio 0.7L 06/16/19 10:00: Potassium Level 5.7H Height (Feet): 5 Height (Inches): 11.00 Weight (Pounds): 242 Nancy Gibbs MD Jun 16, 2019 17:49
--- NOTE | 2019-06-16 17:50 | NUR ---
NURSE NOTES: SEEN AND EXAMINED BY DR BOJORQUEZ. NO SIGNS OF DISTRESS. WILL CONTINUE TO MONITOR.
--- NOTE | 2019-06-16 19:25 | NUR ---
HAND-OFF: Report given to Scarlett Scott RN.
--- NOTE | 2019-06-16 19:30 | NUR ---
NURSE NOTES: Received pt awake oriented to name person and event , SR on the monitor. Bp labile, On Levophed drip at 2 mcg/min. No active bleeding at this time. Will continue to monitor.
[2019-06-16] MEDS: Dyna-Hex 2% Top Sol 2oz TOPIC SCH (19:59)
--- NOTE | 2019-06-16 22:00 | NUR ---
NURSE NOTES: Oral care done. more awake at this time.
--- NOTE | 2019-06-16 22:30 | Consultation ---
DATE OF CONSULTATION: 06/16/2019 CARDIOLOGY CONSULTATION CONSULTING PHYSICIAN: Salvador Ellington M.D. REFERRING PHYSICIAN: Rachel Washington M.D. REASON FOR CONSULTATION: Hypotension. HISTORY OF PRESENT ILLNESS: The patient is a 54-year-old gentleman, who was admitted for abdominal pain and hematemesis. The patient was also found to have acute renal failure and hyperkalemia. He is diabetic, but is a very poor historian. He does not know why he is in intensive care unit. Because of hypotension, he was started on Levophed. The patient apparently had 5 episodes of diarrhea throughout the day. Denies bloody stool or melena. He does not take any blood thinners. The patient was also tachycardic and a Cardiology consultation was requested for further evaluation. REVIEW OF SYSTEMS: Negative other than what is mentioned in the history of present illness. It is limited. PAST MEDICAL HISTORY: As mentioned above. SOCIAL HISTORY: History of heavy alcohol use and reported intravenous drug use. PHYSICAL EXAMINATION: VITAL SIGNS: Show blood pressure of 108/52, pulse 79, respirations 14, and temperature 98. HEAD AND NECK: Shows no JVD. LUNGS: Clear. CARDIOVASCULAR: Shows regular S1 and S2 with no gallop. There is dry blood in his mouth. ABDOMEN: Soft. EXTREMITIES: No pitting edema. LABORATORY AND DIAGNOSTIC DATA: His labs show white count of 6.7, hemoglobin of 10, hematocrit of 28, and platelet count is 103,000. Sodium is 138, potassium was 6.4, BUN of 80, creatinine 4.3, and glucose of 97. Troponin is 0.19 and 0.0142. EKG showed sinus rhythm with low-voltage QRS with no acute ST-T wave abnormalities. ASSESSMENT AND PLAN: 1. Troponin elevation. The levels are low at 0.19 and 0.14. The patient does not have any chest pain. The EKG is nonischemic. This could be due to renal failure. His echocardiogram also showed ejection fraction of 65%. 2. Severe hyperkalemia without any arrhythmia, that is likely due to renal failure. 3. Likely septic shock. On Levophed and IV antibiotic. 4. GI bleed. The patient has history of heavy alcohol use. Further evaluation by GI. Thank you very much for allowing me to participate in the care of this patient. Please do not hesitate to contact me for any questions regarding my evaluation. Salvador Ellington M.D. DR: BEAU JOB#: [id number] CC:
--- NOTE | 2019-06-16 22:46 | General Progress Note ---
Assessment/Plan Assessment/Plan: GI CONSULT ATSP for GIB Will schedule for EGD in am Thank you Louie Gibbs MD Subjective Allergies: Coded Allergies: No Known Allergies (Unverified , 06/15/19) Objective Last 24 Hour Vital Signs Date Time Temp Pulse Resp B/P (MAP) Pulse Ox O2 Delivery O2 Flow Rate FiO2 06/16/19 21:00 95/54 06/16/19 20:00 Room Air 06/16/19 20:00 93/47 06/16/19 20:00 87 06/16/19 19:00 78 13 91/47 (62) 99 06/16/19 19:00 91/47 06/16/19 18:30 77 12 94/54 (67) 100 06/16/19 18:00 102/56 06/16/19 18:00 78 20 102/56 (71) 100 06/16/19 17:37 92/53 06/16/19 17:30 78 12 92/53 (66) 100 06/16/19 17:00 89 19 90/55 (67) 100 06/16/19 17:00 90/55 06/16/19 16:45 81 16 90/55 (67) 100 06/16/19 16:30 78 12 89/55 (66) 100 06/16/19 16:15 83 17 94/45 (61) 99 06/16/19 16:00 Room Air 06/16/19 16:00 76 06/16/19 16:00 98/58 06/16/19 16:00 98.0 85 15 98/58 (71) 99 06/16/19 15:49 108/52 06/16/19 15:30 77 12 93/53 (66) 100 06/16/19 15:00 77 11 96/59 (71) 100 06/16/19 15:00 96/59 06/16/19 14:30 79 16 106/62 (77) 100 06/16/19 14:00 107/64 06/16/19 14:00 82 19 107/64 (78) 100 06/16/19 13:30 79 13 107/61 (76) 100 06/16/19 13:00 79 13 105/59 (74) 100 06/16/19 13:00 105/59 06/16/19 12:30 79 13 100/56 (71) 100 06/16/19 12:15 78 13 100/56 (71) 100 06/16/19 12:00 84 06/16/19 12:00 98.0 81 13 106/63 (77) 100 06/16/19 12:00 139/82 06/16/19 12:00 Room Air 06/16/19 11:45 84 17 106/63 (77) 100 06/16/19 11:30 84 16 117/66 (83) 100 06/16/19 11:30 117/66 06/16/19 11:00 91 21 110/62 (78) 100 06/16/19 11:00 119/60 06/16/19 10:30 83 14 107/57 (74) 100 06/16/19 10:00 86 12 103/58 (73) 99 06/16/19 10:00 103/57 06/16/19 09:30 87 15 85/71 (76) 100 06/16/19 09:00 110/64 06/16/19 09:00 87 16 109/65 (80) 100 06/16/19 08:45 87 15 111/63 (79) 100 06/16/19 08:30 87 16 122/64 (83) 100 06/16/19 08:30 122/64 06/16/19 08:30 86 15 114/63 (80) 100 06/16/19 08:15 87 15 114/63 (80) 100 06/16/19 08:00 87 06/16/19 08:00 111/57 06/16/19 08:00 97.8 87 13 111/57 (75) 99 06/16/19 08:00 Room Air 06/16/19 07:45 88 14 112/61 (78) 99 06/16/19 07:30 86 14 122/69 (86) 99 06/16/19 07:13 120/68 06/16/19 07:13 122/69 06/16/19 07:00 92 20 122/69 (86) 100 06/16/19 06:30 93 20 112/29 (56) 100 06/16/19 06:00 100/60 06/16/19 06:00 95 20 110/29 (56) 100 06/16/19 05:30 96 18 64/29 (41) 100 06/16/19 05:00 90 20 99/50 (66) 100 06/16/19 05:00 64/29 06/16/19 04:00 Room Air 06/16/19 04:00 103/52 06/16/19 04:00 98.2 93 20 100/55 (70) 100 06/16/19 03:31 101 06/16/19 03:30 Room Air 06/16/19 03:30 95 20 103/52 (69) 100 06/16/19 03:15 98.1 101 22 103/61 (75) 100 06/16/19 03:10 103/61 06/16/19 03:00 98.1 94 14 95/51 99 Room Air 06/16/19 02:30 98.1 94 14 95/51 99 Room Air 06/16/19 02:00 98.1 91 16 99/52 98 Room Air 06/16/19 01:05 98.1 93 16 95/46 98 Room Air 06/16/19 01:04 95/46 06/16/19 00:59 84/45 06/16/19 00:54 94/43 06/16/19 00:49 93/44 06/16/19 00:44 90/48 06/16/19 00:39 104/48 06/16/19 00:34 88/40 06/16/19 00:30 98.1 98 21 75/43 99 Room Air 06/16/19 00:29 75/43 06/15/19 23:30 98.1 98 21 53/20 99 Room Air Intake and Output 06/15/19 06/16/19 19:00 07:00 Intake Total 465.24 ml Output Total 1700 ml Balance -1234.76 ml Intake Oral 0 ml IV Total 465.24 ml Output Urine Total 1700 ml # Voids 2 # Bowel Movements 6 Laboratory Tests 06/15/19 23:51: White Blood Count 7.7, Red Blood Count 2.40L, Hemoglobin 8.0L, Hematocrit 21.8L , Mean Corpuscular Volume 91, Mean Corpuscular Hemoglobin 33.4H, Mean Corpuscular Hemoglobin Concent 36.6H, Red Cell Distribution Width 10.6L, Platelet Count 89L, Mean Platelet Volume 4.4L, Neutrophils (%) (Auto) , Lymphocytes (%) (Auto) , Monocytes (%) (Auto) , Eosinophils (%) (Auto) , Basophils (%) (Auto) 06/16/19 00:00: Phosphorus Level 6.1H, Magnesium Level 2.7H, Troponin I 0.196H 06/16/19 01:00: Hepatitis A IgM Antibody [Pending], Hepatitis B Surface Antigen [Pending], Hepatitis B Core IgM Antibody [Pending], Hepatitis C Antibody [Pending], HIV (1& 2) Antibody Rapid Negative 06/16/19 06:45: White Blood Count 6.7, Red Blood Count 3.06L, Hemoglobin 10.1L, Hematocrit 28.3L , Mean Corpuscular Volume 92, Mean Corpuscular Hemoglobin 32.9H, Mean Corpuscular Hemoglobin Concent 35.6, Red Cell Distribution Width 11.5L, Platelet Count 103L, Mean Platelet Volume 4.1L, Neutrophils (%) (Auto) 70.7, Lymphocytes (%) (Auto) 11.7L, Monocytes (%) (Auto) 15.5H, Eosinophils (%) (Auto ) 1.0, Basophils (%) (Auto) 1.1, Troponin I 0.142H, Sodium Level 138, Potassium Level 6.4*H, Chloride Level 106, Carbon Dioxide Level 18L, Anion Gap 13, Blood Urea Nitrogen 80H, Creatinine 4.3H, Estimat Glomerular Filtration Rate 14.5, Glucose Level 97, Calcium Level 9.2, Total Bilirubin 0.8, Aspartate Amino Transf (AST/SGOT) 119H, Alanine Aminotransferase (ALT/SGPT) 26, Alkaline Phosphatase 74, Total Protein 7.8, Albumin 3.3L, Globulin 4.5, Albumin/Globulin Ratio 0.7L 06/16/19 10:00: Potassium Level 5.7H Height (Feet): 5 Height (Inches): 11.00 Weight (Pounds): 242 Nancy Gibbs MD Jun 16, 2019 22:46
--- NOTE | 2019-06-16 23:01 | Initial Psychiatric Evaluation ---
Psychiatry Consultation Psychiatry Consultation Chief Complaint: Abdominal Pain History of Present Illness: 54 yo male admitted to ICU for cirrhosis, hematemesis, hyperkalemia, hyponatremia, acute renal failure, elevated troponin, tachycardia, and history of for drug abuse. the pt has anxiety and depressed. No si/hi. no psychotic do. Allergies: Coded Allergies: No Known Allergies (Unverified , 06/15/19) Medication History Discontinued Medications Acetaminophen* (Acetaminophen 325MG Tablet*), 325 MG ORAL Q4H PRN for Pain Scale (3-5), (Reported) Discontinued Reason: MD discontinued med Amino Acids/Protein Hydrolys (Pro-Stat Liquid), 30 ML ORAL TWICE A DAY, ( Reported) Discontinued Reason: MD discontinued med Ascorbic Acid* (Vitamin C*), 250 MG ORAL DAILY, (Reported) Discontinued Reason: MD discontinued med Bisacodyl* (Dulcolax*), 10 MG ORAL DAILY, (Reported) Discontinued Reason: MD discontinued med Docusate Sodium* (Docusate Sodium*), 100 MG ORAL TWICE A DAY, (Reported) Discontinued Reason: MD discontinued med Furosemide* (Lasix*), 40 MG ORAL TWICE A DAY, (Reported) Discontinued Reason: MD discontinued med Gabapentin* (Gabapentin*), 600 MG ORAL THREE TIMES A DAY, (Reported) Discontinued Reason: MD discontinued med Hydrocodone Bit/Acetaminophen 5-325* ([place] 5-325*), 1 TAB ORAL Q4H PRN for For Pain, (Reported) Discontinued Reason: MD discontinued med Lactulose (Lactulose*), 30 ML ORAL, (Reported) Discontinued Reason: MD discontinued med Lisinopril (Lisinopril*), 10 MG ORAL DAILY, (Reported) Discontinued Reason: MD discontinued med Magnesium Hydroxide* (Milk Of Magnesia*), 30 ML ORAL DAILY, (Reported) Discontinued Reason: MD discontinued med Multivitamin (Multi-Vitamin Daily), 1 EACH PO, (Reported) Discontinued Reason: MD discontinued med Na Phos,M-B/Na Phos,Di-Ba (Fleet Enema), 133 ML RC, (Reported) Discontinued Reason: MD discontinued med Nifedipine (Nifedipine*), 30 MG ORAL DAILY, (Reported) Discontinued Reason: MD discontinued med Ondansetron (Zofran), 4 MG ORAL Q6H PRN for Nausea & Vomiting, (Reported) Discontinued Reason: MD discontinued med Spironolactone* (Aldactone*), 25 MG ORAL DAILY, (Reported) Discontinued Reason: MD discontinued med Patient History History Provided By: Patient, Medical Record, PMD Objective Data Height (Feet): 5 Height (Inches): 11.00 Weight (Pounds): 242 Appearance: no abnormalities noted Behavior Mannerisms: good eye contact Affect: blunted Mood: anxious Thought Process: logical Suicidal Ideation: present Assessment/Plan Problem List: (1) Encephalopathy ICD Codes: G93.40 - Encephalopathy, unspecified SNOMED: 21151228 (2) AMS (altered mental status) ICD Codes: R41.82 - Altered mental status, unspecified SNOMED: 831525662 Diagnosis Herrin I: ativan 1mg po q4 prn the pt is not at immediate dts/dto provided ro/Alison Moss MD Jun 16, 2019 23:01
[2019-06-17] VITALS (36 sets, daily range): BP systolic 99–144; BP diastolic 53–98
--- NOTE | 2019-06-17 | NUR ---
NURSE NOTES: Pt more awake at this time. AOx4.. Instructed to continue NPO,- verbalized understanding.
[2019-06-17] MEDS: D5NS 1,000 ML IV SCH (00:13)
--- NOTE | 2019-06-17 03:45 | History and Physical Report ---
DATE OF ADMISSION: 06/16/2019 HISTORY OF PRESENT ILLNESS: The patient was admitted to ICU for cirrhosis, hematemesis, hyperkalemia, hyponatremia, acute renal failure, elevated troponin, tachycardia, and history of for drug abuse, also initially was on pressors. The patient has history of alcohol and drug abuse and history of smoking with in and out of consciousness almost at times. However, denies pain. Denies nausea, vomiting, or diarrhea. The patient is a poor historian at this point, cannot rely on history at this point. PAST MEDICAL HISTORY: Includes GERD, alcohol abuse, history of encephalopathy, and possible cirrhosis. SOCIAL HISTORY: History of drug and alcohol abuse. Also, has history of smoking. MEDICATIONS: None. ALLERGIES: No known allergies. PAST SURGICAL HISTORY: None. REVIEW OF SYSTEMS: HEENT: Denies headaches. RESPIRATORY: Denies shortness of breath. Denies cough. CARDIOVASCULAR: Denies chest pain. GASTROINTESTINAL: Denies nausea, vomiting, or diarrhea; however, the patient is a poor historian. EXTREMITIES: Denies pain. CENTRAL NERVOUS SYSTEM: Denies change in vision or speech pattern. The patient is a poor historian because of altered mental status and bouts of delirium. PHYSICAL EXAMINATION: VITAL SIGNS: Pulse is 89 and blood pressure is 90/55. HEENT: PERRLA. NECK: Supple. No lymphadenopathy. CHEST: Clear to auscultation. CARDIOVASCULAR: Regular rate and rhythm. No murmurs or extra sounds. GASTROINTESTINAL: Soft, distended. Positive bowel sounds. EXTREMITIES: 1+ edema. Reflexes on both sides. Moves all four extremities. CENTRAL NERVOUS SYSTEM: generalized weakness. LABORATORY DATA: WBC of 9.1, hemoglobin 10.3, and platelets of 109,000. Sodium 138, potassium 6.4, BUN of 80, creatinine of 4.3, and glucose of 97. Troponin of 0.196. ASSESSMENT AND PLAN: The patient has hematemesis, cirrhosis, hyponatremia, hyperkalemia, acute renal failure, elevated troponin alcohol abuse, initially on pressors. I have asked Dr. Mejia, Dr. Kaufman, Dr. Gibbs, Dr. Ellington, Dr. Fischer to see the patient for the above-mentioned diagnoses. We will follow closely. Ali Brandt [place] DR: Dominick JOB#: [id number] CC:
--- NOTE | 2019-06-17 04:00 | NUR ---
NURSE NOTES: complete bed bath with bed changed was done.
[2019-06-17 05:26] LABS: HEMATOCRIT 25.7 % (42.0-52.0); HEMOGLOBIN 8.9 G/DL (14.2-18.0); MEAN CORPUSCULAR VOLUME 94 FL (80-99); PLATELET COUNT 67 K/UL (150-450); RED BLOOD COUNT 2.74 M/UL (4.70-6.10); RED CELL DISTRIBUTION WIDTH 11.1 % (11.6-14.8); WHITE BLOOD COUNT 2.6 K/UL (4.8-10.8)
[2019-06-17 05:31] LABS: INR 1.1 (0.9-1.1)
--- NOTE | 2019-06-17 06:00 | NUR ---
NURSE NOTES: SBP >110. discontinued levophed drip. VSS
[2019-06-17 06:04] LABS: ALANINE AMINOTRANSFERASE 27 U/L (12-78); ALBUMIN 3.3 G/DL (3.4-5.0); ALBUMIN/GLOBULIN RATIO 0.8 (1.0-2.7); ALKALINE PHOSPHATASE 62 U/L (46-116); ANION GAP 9 mmol/L (5-15); ASPARTATE AMINO TRANSFERASE 97 U/L (15-37); BILIRUBIN,TOTAL 0.5 MG/DL (0.2-1.0); BLOOD UREA NITROGEN 45 mg/dL (7-18); CARBON DIOXIDE 19 MMOL/L (21-32); CHLORIDE 115 MMOL/L (98-107); CHOLESTEROL 101 MG/DL (< 200); CREATINE KINASE 1265 U/L (26-308); FERRITIN 435 NG/ML (8-388); GAMMA GLUTAMYL TRANSPEPTIDASE 197 U/L (5-85); HDL CHOLESTEROL 25 MG/DL (40-60); PHOSPHORUS 3.8 MG/DL (2.5-4.9); POTASSIUM 5.5 MMOL/L (3.5-5.1); SODIUM 143 MMOL/L (136-145); TRIGLYCERIDES 93 MG/DL (30-150)
[2019-06-17 06:10] LABS: AMMONIA 50 umol/L (11-32)
--- NOTE | 2019-06-17 06:10 | NUR ---
NURSE NOTES: EGD consent was signed by the pt. Pt. DENNIS x4
--- NOTE | 2019-06-17 06:30 | NUR ---
NURSE NOTES: Dr borden at bedside evaluating pt , no other orders given.
[2019-06-17 06:43] LABS: % IRON SATURATION 26 % (15-50); IRON 60 ug/dL (50-175); TOTAL IRON BINDING CAPACITY 232 ug/dL (250-450)
[2019-06-17] MEDS: D5 1/2NS 1,000 ML IV SCH ×2 (07:08→20:41)
--- NOTE | 2019-06-17 07:30 | NUR ---
HAND-OFF: Report given to Delonte PEARL.
--- NOTE | 2019-06-17 07:31 | NUR ---
NURSE NOTES: Late entry: PT and report given by RYANNE Rowland; PT A/O x 4; VS stable BP 124/76 on monitor, saturation at 98% on RA; no S/S of respiratory distress; received PT NPO, he is very agitated asking for H2O or ice chips; explained that PT is due for Endoscopy w/ possibly biopsy, polypectomy, hemostasis, and submucosal injection today per MD Sai. GI-preop checklist completed, PT has R-IJ TLC patent and intact infusing sandostatin, last BM 06/16/19 per PM RN, PT has urinal at bedside. Bed alarm on, lowest position, side rails x 3 are up, call light within reach. Will continue to monitor PT.
--- NOTE | 2019-06-17 08:02 | NUR ---
NURSE NOTES: MD Sharon made rounds, updates given in regards to PT. Will continue with plan of care.
--- NOTE | 2019-06-17 08:07 | Anethesia Preoperative Eval ---
Anesthesia Pre-op PMH/ROS General Date of Evaluation: Jun 17, 2019 Anesthesiologist: Eloy ASA Score: ASA 4 - E Mallampati Score Class I : Soft palate, uvula, fauces, pillars visible Class II: Soft palate, uvula, fauces visible Class III: Soft palate, base of uvula visible Class IV: Only hard plate visible Mallampati Classification: Class III Surgeon: Sai Diagnosis: GI bleed Surgical Procedure: EGD Anesthesia History: none Social History: alcohol use, drug use - amphetamines, opiates Family History: no anesthesia problems Allergies: Coded Allergies: No Known Allergies (Unverified , 06/15/19) Medications: see eMAR Patient NPO?: Yes NPO Date: Jun 16, 2019 NPO Time: 22:00 Past Medical History Cardiovascular: Reports: HTN, other - CHF; Denies: CAD, NH, valve dz, arrhythmia Pulmonary: Denies: asthma, COPD, IRENA, other Gastrointestinal/Genitourinary: Reports: GERD, other - Acute on chronic renal failure, chirrosis, GI bleed with hematemesis; Denies: CRI, ESRD Neurologic/Psychiatric: Reports: depression/anxiety, other - peripheral neuropathy; Denies: dementia, CVA, TIA Endocrine: Denies: DM, hypothyroidism, steroids, other HEENT: Denies: cataract (L), cataract (R), glaucoma, TETLIN (L), TETLIN (R), other Hematology/Immune: Reports: anemia - acute on chronic, other - hep c; Denies: DVT, bleeding disorder Musculoskeletal/Integumentary: Reports: OA; Denies: RA, DJD, DDD, edema, other Other: obesity PSxH Narrative: DEnies Anesthesia Pre-op Phys. Exam Physician Exam Last Vital Signs Date Time Temp Pulse Resp B/P (MAP) Pulse Ox O2 Delivery O2 Flow Rate FiO2 06/17/19 06:30 63 15 132/77 (95) 98 06/17/19 04:00 98.2 06/17/19 04:00 Room Air Constitutional: NAD Cardiovascular: RRR Respiratory: CTA Airway Exam Mallampati Score: Class III MO: limited ROM: limited Anesthesia Pre-op A/P Labs Hematology Test 06/17/19 04:30 White Blood Count 2.6 K/UL (4.8-10.8) #L Red Blood Count 2.74 M/UL (4.70-6.10) L Hemoglobin 8.9 G/DL (14.2-18.0) L Hematocrit 25.7 % (42.0-52.0) L Mean Corpuscular Volume 94 FL (80-99) Mean Corpuscular Hemoglobin 32.5 PG (27.0-31.0) H Mean Corpuscular Hemoglobin Concent 34.7 G/DL (32.0-36.0) Red Cell Distribution Width 11.1 % (11.6-14.8) L Platelet Count 67 K/UL (150-450) L Mean Platelet Volume 4.2 FL (6.5-10.1) L Neutrophils (%) (Auto) % (45.0-75.0) Lymphocytes (%) (Auto) % (20.0-45.0) Monocytes (%) (Auto) % (1.0-10.0) Eosinophils (%) (Auto) % (0.0-3.0) Basophils (%) (Auto) % (0.0-2.0) Neutrophils % (Manual) Pending Lymphocytes % (Manual) Pending Platelet Estimate Pending Platelet Morphology Pending Coagulation Test 06/17/19 04:30 Prothrombin Time 11.7 SEC (9.30-11.50) H Prothromb Time International Ratio 1.1 (0.9-1.1) Activated Partial Thromboplast Time 27 SEC (23-33) Chemistry Test 06/16/19 10:00 06/17/19 04:30 Potassium Level 5.7 MMOL/L (3.5-5.1) H 5.5 MMOL/L (3.5-5.1) H Sodium Level 143 MMOL/L (136-145) Chloride Level 115 MMOL/L (98-107) H Carbon Dioxide Level 19 MMOL/L (21-32) L Anion Gap 9 mmol/L (5-15) Blood Urea Nitrogen 45 mg/dL (7-18) H Creatinine 2.0 MG/DL (0.55-1.30) #H Estimat Glomerular Filtration Rate 35.1 mL/min (>60) Glucose Level 189 MG/DL (74-106) H Hemoglobin A1c 5.3 % (4.3-6.0) Lactic Acid Level 0.50 mmol/L (0.4-2.0) Uric Acid 10.9 MG/DL (2.6-7.2) H Calcium Level 9.0 MG/DL (8.5-10.1) Phosphorus Level 3.8 MG/DL (2.5-4.9) Magnesium Level 2.3 MG/DL (1.8-2.4) Iron Level 60 ug/dL (50-175) Total Iron Binding Capacity 232 ug/dL (250-450) L Percent Iron Saturation 26 % (15-50) Unsaturated Iron Binding 172 ug/dL (112-346) Ferritin 435 NG/ML (8-388) H Total Bilirubin 0.5 MG/DL (0.2-1.0) Gamma Glutamyl Transpeptidase 197 U/L (5-85) H Aspartate Amino Transf (AST/SGOT) 97 U/L (15-37) H Alanine Aminotransferase (ALT/SGPT) 27 U/L (12-78) Alkaline Phosphatase 62 U/L (46-116) Ammonia 50 umol/L (11-32) H Total Creatine Kinase 1265 U/L (26-308) H Troponin I 0.060 ng/mL (0.000-0.056) C-Reactive Protein, Quantitative 2.5 mg/dL (0.00-0.90) H Pro-B-Type Natriuretic Peptide 1073 pg/mL (0-125) H Total Protein 7.3 G/DL (6.4-8.2) Albumin 3.3 G/DL (3.4-5.0) L Globulin 4.0 g/dL Albumin/Globulin Ratio 0.8 (1.0-2.7) L Triglycerides Level 93 MG/DL (30-150) Cholesterol Level 101 MG/DL (< 200) LDL Cholesterol 59 mg/dL (<100) HDL Cholesterol 25 MG/DL (40-60) L Cholesterol/HDL Ratio 4.0 (3.3-4.4) Vitamin B12 Level 605 PG/ML (193-986) Folate 14.8 NG/ML (8.6-58.9) Thyroid Stimulating Hormone (TSH) 0.307 uiU/mL (0.358-3.740) Free Thyroxine 1.08 NG/DL (0.76-1.46) Studies Pre-op Studies: EKG - st, nonischemic, echo - EF 65% Risk Assessment & Plan Assessment: ASA JUAQUIN, admitted with hematemesis and hypotension, transfused 1 unit PRBC, now off levophed, hgb still downtrending. Emergency procedure Plan: MAC Status Change Before Surgery: No Pre-Antibiotics Drug: N/A Patricia House MD Jun 17, 2019 08:07
[2019-06-17] MEDS ORDERED: DiphenhydrAMINE 50mg/ml Inj IVP PRN (08:15)
--- NOTE | 2019-06-17 08:20 | General Progress Note ---
Assessment/Plan Assessment/Plan: Assessment - Cirrhosis - GIB - renal failure - hyperkalemia Recommendations - NPO - f/u hepatitis serologies - adonis gtt - EGD today Subjective Allergies: Coded Allergies: No Known Allergies (Unverified , 06/15/19) Subjective above noted more stable off of Levo gtt as of this am no further N/V d/w renal - Cr better K also lower for EGD today Objective Last 24 Hour Vital Signs Date Time Temp Pulse Resp B/P (MAP) Pulse Ox O2 Delivery O2 Flow Rate FiO2 06/17/19 06:30 63 15 132/77 (95) 98 06/17/19 06:00 68 15 118/71 (87) 98 06/17/19 05:30 68 17 120/74 (89) 99 06/17/19 05:13 83 22 107/85 (92) 100 06/17/19 05:00 107/85 06/17/19 04:30 77 17 116/68 (84) 99 06/17/19 04:00 98.2 79 18 119/70 (86) 99 06/17/19 04:00 77 06/17/19 04:00 Room Air 06/17/19 04:00 119/70 06/17/19 03:30 84 19 117/69 (85) 99 06/17/19 03:00 71 17 124/63 (83) 99 06/17/19 03:00 124/63 06/17/19 02:30 72 16 114/62 (79) 98 06/17/19 02:00 114/62 06/17/19 02:00 73 17 113/62 (79) 97 06/17/19 01:30 86 21 113/65 (81) 95 06/17/19 01:00 113/65 06/17/19 01:00 78 17 106/62 (77) 97 06/17/19 00:30 71 12 99/56 (70) 96 06/17/19 00:00 Room Air 06/17/19 00:00 104/53 06/17/19 00:00 98.6 77 16 104/53 (70) 98 06/16/19 23:30 80 19 102/60 (74) 99 06/16/19 23:00 90/50 06/16/19 23:00 74 14 100/54 (69) 99 06/16/19 22:30 75 13 97/54 (68) 99 06/16/19 22:00 91/50 06/16/19 22:00 74 14 93/54 (67) 100 06/16/19 21:45 76 13 90/50 (63) 100 06/16/19 21:30 75 13 86/48 (61) 99 06/16/19 21:15 77 13 97/54 (68) 100 06/16/19 21:00 95/54 06/16/19 21:00 82 18 99/54 (69) 100 06/16/19 20:45 76 16 105/55 (72) 100 06/16/19 20:30 85 17 100/55 (70) 98 06/16/19 20:00 Room Air 06/16/19 20:00 98.2 16 93/47 (62) 100 06/16/19 20:00 93/47 06/16/19 20:00 87 06/16/19 19:30 98.2 82 16 100/54 (69) 100 06/16/19 19:00 78 13 91/47 (62) 99 06/16/19 19:00 91/47 06/16/19 18:30 77 12 94/54 (67) 100 06/16/19 18:00 102/56 06/16/19 18:00 78 20 102/56 (71) 100 06/16/19 17:37 92/53 06/16/19 17:30 78 12 92/53 (66) 100 06/16/19 17:00 89 19 90/55 (67) 100 06/16/19 17:00 90/55 06/16/19 16:45 81 16 90/55 (67) 100 06/16/19 16:30 78 12 89/55 (66) 100 06/16/19 16:15 83 17 94/45 (61) 99 06/16/19 16:00 Room Air 06/16/19 16:00 76 06/16/19 16:00 98/58 06/16/19 16:00 98.0 85 15 98/58 (71) 99 06/16/19 15:49 108/52 06/16/19 15:30 77 12 93/53 (66) 100 06/16/19 15:00 77 11 96/59 (71) 100 06/16/19 15:00 96/59 06/16/19 14:30 79 16 106/62 (77) 100 06/16/19 14:00 107/64 06/16/19 14:00 82 19 107/64 (78) 100 06/16/19 13:30 79 13 107/61 (76) 100 06/16/19 13:00 79 13 105/59 (74) 100 06/16/19 13:00 105/59 06/16/19 12:30 79 13 100/56 (71) 100 06/16/19 12:15 78 13 100/56 (71) 100 06/16/19 12:00 84 06/16/19 12:00 98.0 81 13 106/63 (77) 100 06/16/19 12:00 139/82 06/16/19 12:00 Room Air 06/16/19 11:45 84 17 106/63 (77) 100 06/16/19 11:30 84 16 117/66 (83) 100 06/16/19 11:30 117/66 06/16/19 11:00 91 21 110/62 (78) 100 06/16/19 11:00 119/60 06/16/19 10:30 83 14 107/57 (74) 100 06/16/19 10:00 86 12 103/58 (73) 99 06/16/19 10:00 103/57 06/16/19 09:30 87 15 85/71 (76) 100 06/16/19 09:00 110/64 06/16/19 09:00 87 16 109/65 (80) 100 06/16/19 08:45 87 15 111/63 (79) 100 06/16/19 08:30 87 16 122/64 (83) 100 06/16/19 08:30 122/64 06/16/19 08:30 86 15 114/63 (80) 100 Intake and Output 06/16/19 06/17/19 18:59 06:59 Intake Total 2380.43 ml 1901.25 ml Output Total 3900 ml 2400 ml Balance -1519.57 ml -498.75 ml Intake Oral 0 ml 0 ml IV Total 2380.43 ml 1901.25 ml Output Urine Total 3900 ml 2400 ml Laboratory Tests 06/16/19 10:00: Potassium Level 5.7H 06/17/19 04:30: Potassium Level 5.5H, White Blood Count 2.6#L, Red Blood Count 2.74L, Hemoglobin 8.9L, Hematocrit 25.7L, Mean Corpuscular Volume 94, Mean Corpuscular Hemoglobin 32.5H, Mean Corpuscular Hemoglobin Concent 34.7, Red Cell Distribution Width 11.1L, Platelet Count 67L, Mean Platelet Volume 4.2L, Neutrophils (%) (Auto) , Lymphocytes (%) (Auto) , Monocytes (%) (Auto) , Eosinophils (%) (Auto) , Basophils (%) (Auto) , Neutrophils % (Manual) [Pending] , Lymphocytes % (Manual) [Pending], Platelet Estimate [Pending], Platelet Morphology [Pending], Prothrombin Time 11.7H, Prothromb Time International Ratio 1.1, Activated Partial Thromboplast Time 27, Sodium Level 143, Chloride Level 115H, Carbon Dioxide Level 19L, Anion Gap 9, Blood Urea Nitrogen 45H, Creatinine 2.0#H, Estimat Glomerular Filtration Rate 35.1, Glucose Level 189H, Hemoglobin A1c 5.3, Lactic Acid Level 0.50, Uric Acid 10.9H, Calcium Level 9.0, Phosphorus Level 3.8, Magnesium Level 2.3, Iron Level 60, Total Iron Binding Capacity 232L, Percent Iron Saturation 26, Unsaturated Iron Binding 172, Ferritin 435H, Total Bilirubin 0.5, Gamma Glutamyl Transpeptidase 197H, Aspartate Amino Transf (AST/SGOT) 97H, Alanine Aminotransferase (ALT/SGPT) 27, Alkaline Phosphatase 62, Ammonia 50H, Total Creatine Kinase 1265H, Troponin I 0.060H, C-Reactive Protein, Quantitative 2.5H, Pro-B-Type Natriuretic Peptide 1073H, Total Protein 7.3, Albumin 3.3L, Globulin 4.0, Albumin/Globulin Ratio 0.8L, Triglycerides Level 93, Cholesterol Level 101, LDL Cholesterol 59, HDL Cholesterol 25L, Cholesterol/HDL Ratio 4.0, Vitamin B12 Level 605, Folate 14.8, Thyroid Stimulating Hormone (TSH) 0.307L, Free Thyroxine 1.08 Height (Feet): 5 Height (Inches): 10.00 Weight (Pounds): 232 Objective mildly obese man NCAT supple CTA RR abd soft ND NT no edema non focal, alert Khorrami,Payman MD Jun 17, 2019 08:20
[2019-06-17] MEDS: Pantoprazole Inj IVP SCH ×2 (08:26→20:41)
[2019-06-17] MEDS ORDERED: Lidocaine 1% MPF 10mg/ml 5ml ONE (08:30)
[2019-06-17] MEDS ORDERED: Propofol 200mg/20ml IV ONE (08:30)
[2019-06-17] MEDS ORDERED: NS 500ML IVPB ONE (08:42)
--- NOTE | 2019-06-17 08:44 | NUR ---
NURSE NOTES: PT transported to GI Lab with MD Sai, PT VS stable, no respiratory distress on RA, transported on portable monitor. Report given to RYANNE Camejo. KAN Oleary made aware PT is off unit in GI Lab.
--- NOTE | 2019-06-17 08:44 | Pre-Procedure Note/Attestation ---
Pre-Procedure Note/Attestation Complete Prior to Procedure Planned Procedure: not applicable Procedure Narrative: EGD Indications for Procedure Pre-Operative Diagnosis: GIB Attestation I attest that I discussed the nature of the procedure; its benefits; risks and complications; and alternatives (and the risks and benefits of such alternatives ), prior to the procedure, with the patient (or the patient's legal associate financial representative). I attest that, if there was a reasonable possibility of needing a blood transfusion, the patient (or the patient's legal associate financial representative) was given the [facility] standardized written summary, pursuant to the Marco Brennon Blood Safety Act ([place] Health and Safety Code # 1645, as amended). I attest that I re-evaluated the patient just prior to the surgery and that there has been no change in the patient's H&P, except as documented below: Nancy Gibbs MD Jun 17, 2019 08:44
[2019-06-17] MEDS: Sucralfate 1gm tab ORAL SCH ×5 (08:52→20:41)
[2019-06-17] MEDS: Tamsulosin 0.4mg cap ORAL SCH ×3 (08:52→17:14)
--- NOTE | 2019-06-17 08:57 | Endoscopy Procedure Note ---
Endoscopy Procedure Note General Indication for Procedure: UGIB Procedures Performed: EGD Operative Findings/Diagnosis: gastritis and portal HTN gastropathy Specimen: none Pt Tolerated Procedure Well: Yes Estimated Blood Loss: none Anesthesia Anesthesiologist: Eloy Anesthesia: moderate sedation Medications Medication Given: see anesthesia record Inserted Devices Implant(s) used?: No GI Core Measures 50 yrs or older w/o bx or poly: Not Applicable 10yrs. F/U recommended: Not Applicable Nancy Gibbs MD Jun 17, 2019 08:57
--- NOTE | 2019-06-17 08:58 | Brief Operative Note ---
Immediate Post Operative Note Operative Note Chief Complaint: UGIB Pre-op Diagnosis: GIB Procedure: EGD Post-op Diagnosis: Gastritis and portal HTN gastropathy Surgeon: suha Anesthesiologist: Eloy Anesthesia: MAC Specimen: none Complications: none Condition: stable Fluids: per anesthesia Estimated Blood Loss: none Drains: none Implant(s) used?: No Nancy Gibbs MD Jun 17, 2019 08:58
--- NOTE | 2019-06-17 09:05 | Immediate Post-Op Evaluation ---
Immediate Post-Op Evalulation Immediate Post-Op Evalulation Procedure: EGD Date of Evaluation: Jun 17, 2019 Time of Evaluation: 09:05 IV Fluids: 200 Blood Products: 0 Estimated Blood Loss: 0 Urinary Output: 0 Blood Pressure Systolic: 161 Blood Pressure Diastolic: 86 Pulse Rate: 72 Respiratory Rate: 16 O2 Sat by Pulse Oximetry: 100 Temperature (Fahrenheit): 97 Pain Score (1-10): 0 Nausea: No Vomiting: No Complications 0 Patient Status: awake, reacts, patent, none Hydration Status: adequate Drug: N./A Patricia House MD Jun 17, 2019 09:05
--- NOTE | 2019-06-17 09:07 | 48 Hour Post Anesthesia Eval ---
Post Anesthesia Evaluation Procedure: EGD Date of Evaluation: Jun 17, 2019 Airway: patent Nausea: No Vomiting: No Pain Intensity: 0 Hydration Status: adequate Cardiopulmonary Status: at baseline Mental Status/LOC: patient returned to baseline Post-Anesthesia Complications: 0 Follow-up care needed: N/A - further care as per primary team Patricia House MD Jun 17, 2019 09:07
--- NOTE | 2019-06-17 09:11 | Nephrology Progress Note ---
Assessment/Plan Problem List: (1) Acute kidney failure Assessment: cr 5.3 on admit lowering now (2) Acute upper GI bleed Assessment: Anemia (3) Hyperkalemia (4) Hyponatremia (5) Encephalopathy (6) Elevated troponin Assessment Acute kidney failure GI Bleed Hyperkalemia Hyponatremia Elevated troponin Encephalopathy Amphetamines in urine Plan due for endoscopy today Hydrate Flomax- has urinary residual IV Thiamin Monitor Electrolyte and renal parameters Kidney KEVIN 2D echo Urine studies per orders Transfer to tele ? Subjective ROS Limited/Unobtainable: No Constitutional: Reports: malaise Objective Objective Last 24 Hour Vital Signs Date Time Temp Pulse Resp B/P (MAP) Pulse Ox O2 Delivery O2 Flow Rate FiO2 06/17/19 09:05 72 16 100 06/17/19 08:00 Room Air 06/17/19 08:00 75 16 132/79 (96) 99 06/17/19 07:30 76 11 124/76 (92) 100 06/17/19 07:00 98.5 78 16 116/69 (85) 99 06/17/19 06:30 63 15 132/77 (95) 98 06/17/19 06:00 68 15 118/71 (87) 98 06/17/19 05:30 68 17 120/74 (89) 99 06/17/19 05:13 83 22 107/85 (92) 100 06/17/19 05:00 107/85 06/17/19 04:30 77 17 116/68 (84) 99 06/17/19 04:00 98.2 79 18 119/70 (86) 99 06/17/19 04:00 77 06/17/19 04:00 Room Air 06/17/19 04:00 119/70 06/17/19 03:30 84 19 117/69 (85) 99 06/17/19 03:00 71 17 124/63 (83) 99 06/17/19 03:00 124/63 06/17/19 02:30 72 16 114/62 (79) 98 06/17/19 02:00 114/62 06/17/19 02:00 73 17 113/62 (79) 97 06/17/19 01:30 86 21 113/65 (81) 95 06/17/19 01:00 113/65 06/17/19 01:00 78 17 106/62 (77) 97 06/17/19 00:30 71 12 99/56 (70) 96 06/17/19 00:00 Room Air 06/17/19 00:00 104/53 06/17/19 00:00 98.6 77 16 104/53 (70) 98 06/16/19 23:30 80 19 102/60 (74) 99 06/16/19 23:00 90/50 06/16/19 23:00 74 14 100/54 (69) 99 06/16/19 22:30 75 13 97/54 (68) 99 06/16/19 22:00 91/50 06/16/19 22:00 74 14 93/54 (67) 100 06/16/19 21:45 76 13 90/50 (63) 100 06/16/19 21:30 75 13 86/48 (61) 99 06/16/19 21:15 77 13 97/54 (68) 100 06/16/19 21:00 95/54 06/16/19 21:00 82 18 99/54 (69) 100 06/16/19 20:45 76 16 105/55 (72) 100 06/16/19 20:30 85 17 100/55 (70) 98 06/16/19 20:00 Room Air 06/16/19 20:00 98.2 16 93/47 (62) 100 06/16/19 20:00 93/47 06/16/19 20:00 87 06/16/19 19:30 98.2 82 16 100/54 (69) 100 06/16/19 19:00 78 13 91/47 (62) 99 06/16/19 19:00 91/47 06/16/19 18:30 77 12 94/54 (67) 100 06/16/19 18:00 102/56 06/16/19 18:00 78 20 102/56 (71) 100 06/16/19 17:37 92/53 06/16/19 17:30 78 12 92/53 (66) 100 06/16/19 17:00 89 19 90/55 (67) 100 06/16/19 17:00 90/55 06/16/19 16:45 81 16 90/55 (67) 100 06/16/19 16:30 78 12 89/55 (66) 100 06/16/19 16:15 83 17 94/45 (61) 99 06/16/19 16:00 Room Air 06/16/19 16:00 76 06/16/19 16:00 98/58 06/16/19 16:00 98.0 85 15 98/58 (71) 99 06/16/19 15:49 108/52 06/16/19 15:30 77 12 93/53 (66) 100 06/16/19 15:00 77 11 96/59 (71) 100 06/16/19 15:00 96/59 06/16/19 14:30 79 16 106/62 (77) 100 06/16/19 14:00 107/64 06/16/19 14:00 82 19 107/64 (78) 100 06/16/19 13:30 79 13 107/61 (76) 100 06/16/19 13:00 79 13 105/59 (74) 100 06/16/19 13:00 105/59 06/16/19 12:30 79 13 100/56 (71) 100 06/16/19 12:15 78 13 100/56 (71) 100 06/16/19 12:00 84 06/16/19 12:00 98.0 81 13 106/63 (77) 100 06/16/19 12:00 139/82 06/16/19 12:00 Room Air 06/16/19 11:45 84 17 106/63 (77) 100 06/16/19 11:30 84 16 117/66 (83) 100 06/16/19 11:30 117/66 06/16/19 11:00 91 21 110/62 (78) 100 06/16/19 11:00 119/60 06/16/19 10:30 83 14 107/57 (74) 100 06/16/19 10:00 86 12 103/58 (73) 99 06/16/19 10:00 103/57 06/16/19 09:30 87 15 85/71 (76) 100 Intake and Output 06/16/19 06/17/19 18:59 06:59 Intake Total 2380.43 ml 1901.25 ml Output Total 3900 ml 2400 ml Balance -1519.57 ml -498.75 ml Intake Oral 0 ml 0 ml IV Total 2380.43 ml 1901.25 ml Output Urine Total 3900 ml 2400 ml Laboratory Tests 06/16/19 10:00: Potassium Level 5.7H 06/17/19 04:30: Potassium Level 5.5H, White Blood Count 2.6#L, Red Blood Count 2.74L, Hemoglobin 8.9L, Hematocrit 25.7L, Mean Corpuscular Volume 94, Mean Corpuscular Hemoglobin 32.5H, Mean Corpuscular Hemoglobin Concent 34.7, Red Cell Distribution Width 11.1L, Platelet Count 67L, Mean Platelet Volume 4.2L, Neutrophils (%) (Auto) , Lymphocytes (%) (Auto) , Monocytes (%) (Auto) , Eosinophils (%) (Auto) , Basophils (%) (Auto) , Neutrophils % (Manual) [Pending] , Lymphocytes % (Manual) [Pending], Platelet Estimate [Pending], Platelet Morphology [Pending], Prothrombin Time 11.7H, Prothromb Time International Ratio 1.1, Activated Partial Thromboplast Time 27, Sodium Level 143, Chloride Level 115H, Carbon Dioxide Level 19L, Anion Gap 9, Blood Urea Nitrogen 45H, Creatinine 2.0#H, Estimat Glomerular Filtration Rate 35.1, Glucose Level 189H, Hemoglobin A1c 5.3, Lactic Acid Level 0.50, Uric Acid 10.9H, Calcium Level 9.0, Phosphorus Level 3.8, Magnesium Level 2.3, Iron Level 60, Total Iron Binding Capacity 232L, Percent Iron Saturation 26, Unsaturated Iron Binding 172, Ferritin 435H, Total Bilirubin 0.5, Gamma Glutamyl Transpeptidase 197H, Aspartate Amino Transf (AST/SGOT) 97H, Alanine Aminotransferase (ALT/SGPT) 27, Alkaline Phosphatase 62, Ammonia 50H, Total Creatine Kinase 1265H, Troponin I 0.060H, C-Reactive Protein, Quantitative 2.5H, Pro-B-Type Natriuretic Peptide 1073H, Total Protein 7.3, Albumin 3.3L, Globulin 4.0, Albumin/Globulin Ratio 0.8L, Triglycerides Level 93, Cholesterol Level 101, LDL Cholesterol 59, HDL Cholesterol 25L, Cholesterol/HDL Ratio 4.0, Vitamin B12 Level 605, Folate 14.8, Thyroid Stimulating Hormone (TSH) 0.307L, Free Thyroxine 1.08 Height (Feet): 5 Height (Inches): 10.00 Weight (Pounds): 232 General Appearance: no apparent distress Cardiovascular: normal rate Respiratory/Chest: decreased breath sounds Abdomen: distended Vic Kaufman MD Jun 17, 2019 09:11
--- NOTE | 2019-06-17 09:34 | General Progress Note ---
Assessment/Plan Assessment/Plan: (1) Altered mental status (2) Polysubstance abuse Patient to be continued on Ativan as per psych D/w Dr. Fischer and he concurred. Subjective Date patient seen: Jun 17, 2019 Time patient seen: 09:29 - am Constitutional: Reports: weakness HEENT: Reports: no symptoms Cardiovascular: Reports: no symptoms Respiratory: Reports: no symptoms Gastrointestinal/Abdominal: Reports: no symptoms Genitourinary: Reports: no symptoms Neurologic/Psychiatric: Reports: weakness Endocrine: Reports: no symptoms Hematologic/Lymphatic: Reports: no symptoms Allergies: Coded Allergies: No Known Allergies (Unverified , 06/15/19) Subjective Patient is s/p endoscopy and is in bed, he shows no signs of pain or distress. Was seen by Psych who changed Ativan increased to 2mgIV. He has no c/o pain no Ativan has been administered in the last 24hrs Objective Last 24 Hour Vital Signs Date Time Temp Pulse Resp B/P (MAP) Pulse Ox O2 Delivery O2 Flow Rate FiO2 06/17/19 09:10 68 15 135/85 100 Nasal Cannula 3 06/17/19 09:05 70 15 134/85 100 Nasal Cannula 3 06/17/19 09:05 72 16 100 06/17/19 09:00 97.1 71 15 134/88 100 Nasal Cannula 3 06/17/19 08:00 Room Air 06/17/19 08:00 75 16 132/79 (96) 99 06/17/19 07:30 76 11 124/76 (92) 100 06/17/19 07:00 98.5 78 16 116/69 (85) 99 06/17/19 06:30 63 15 132/77 (95) 98 06/17/19 06:00 68 15 118/71 (87) 98 06/17/19 05:30 68 17 120/74 (89) 99 06/17/19 05:13 83 22 107/85 (92) 100 06/17/19 05:00 107/85 06/17/19 04:30 77 17 116/68 (84) 99 06/17/19 04:00 98.2 79 18 119/70 (86) 99 06/17/19 04:00 77 06/17/19 04:00 Room Air 06/17/19 04:00 119/70 06/17/19 03:30 84 19 117/69 (85) 99 06/17/19 03:00 71 17 124/63 (83) 99 06/17/19 03:00 124/63 06/17/19 02:30 72 16 114/62 (79) 98 06/17/19 02:00 114/62 06/17/19 02:00 73 17 113/62 (79) 97 06/17/19 01:30 86 21 113/65 (81) 95 06/17/19 01:00 113/65 06/17/19 01:00 78 17 106/62 (77) 97 06/17/19 00:30 71 12 99/56 (70) 96 06/17/19 00:00 Room Air 06/17/19 00:00 104/53 06/17/19 00:00 98.6 77 16 104/53 (70) 98 06/16/19 23:30 80 19 102/60 (74) 99 06/16/19 23:00 90/50 06/16/19 23:00 74 14 100/54 (69) 99 06/16/19 22:30 75 13 97/54 (68) 99 06/16/19 22:00 91/50 06/16/19 22:00 74 14 93/54 (67) 100 06/16/19 21:45 76 13 90/50 (63) 100 06/16/19 21:30 75 13 86/48 (61) 99 06/16/19 21:15 77 13 97/54 (68) 100 06/16/19 21:00 95/54 06/16/19 21:00 82 18 99/54 (69) 100 06/16/19 20:45 76 16 105/55 (72) 100 06/16/19 20:30 85 17 100/55 (70) 98 06/16/19 20:00 Room Air 06/16/19 20:00 98.2 16 93/47 (62) 100 06/16/19 20:00 93/47 06/16/19 20:00 87 06/16/19 19:30 98.2 82 16 100/54 (69) 100 06/16/19 19:00 78 13 91/47 (62) 99 06/16/19 19:00 91/47 06/16/19 18:30 77 12 94/54 (67) 100 06/16/19 18:00 102/56 06/16/19 18:00 78 20 102/56 (71) 100 06/16/19 17:37 92/53 06/16/19 17:30 78 12 92/53 (66) 100 06/16/19 17:00 89 19 90/55 (67) 100 06/16/19 17:00 90/55 06/16/19 16:45 81 16 90/55 (67) 100 06/16/19 16:30 78 12 89/55 (66) 100 06/16/19 16:15 83 17 94/45 (61) 99 06/16/19 16:00 Room Air 06/16/19 16:00 76 06/16/19 16:00 98/58 06/16/19 16:00 98.0 85 15 98/58 (71) 99 06/16/19 15:49 108/52 06/16/19 15:30 77 12 93/53 (66) 100 06/16/19 15:00 77 11 96/59 (71) 100 06/16/19 15:00 96/59 06/16/19 14:30 79 16 106/62 (77) 100 06/16/19 14:00 107/64 06/16/19 14:00 82 19 107/64 (78) 100 06/16/19 13:30 79 13 107/61 (76) 100 06/16/19 13:00 79 13 105/59 (74) 100 06/16/19 13:00 105/59 06/16/19 12:30 79 13 100/56 (71) 100 06/16/19 12:15 78 13 100/56 (71) 100 06/16/19 12:00 84 06/16/19 12:00 98.0 81 13 106/63 (77) 100 06/16/19 12:00 139/82 06/16/19 12:00 Room Air 06/16/19 11:45 84 17 106/63 (77) 100 06/16/19 11:30 84 16 117/66 (83) 100 06/16/19 11:30 117/66 06/16/19 11:00 91 21 110/62 (78) 100 06/16/19 11:00 119/60 06/16/19 10:30 83 14 107/57 (74) 100 06/16/19 10:00 86 12 103/58 (73) 99 06/16/19 10:00 103/57 06/16/19 09:30 87 15 85/71 (76) 100 Intake and Output 06/16/19 06/17/19 18:59 06:59 Intake Total 2380.43 ml 1901.25 ml Output Total 3900 ml 2400 ml Balance -1519.57 ml -498.75 ml Intake Oral 0 ml 0 ml IV Total 2380.43 ml 1901.25 ml Output Urine Total 3900 ml 2400 ml Laboratory Tests 06/16/19 10:00: Potassium Level 5.7H 06/17/19 04:30: Potassium Level 5.5H, White Blood Count 2.6#L, Red Blood Count 2.74L, Hemoglobin 8.9L, Hematocrit 25.7L, Mean Corpuscular Volume 94, Mean Corpuscular Hemoglobin 32.5H, Mean Corpuscular Hemoglobin Concent 34.7, Red Cell Distribution Width 11.1L, Platelet Count 67L, Mean Platelet Volume 4.2L, Neutrophils (%) (Auto) , Lymphocytes (%) (Auto) , Monocytes (%) (Auto) , Eosinophils (%) (Auto) , Basophils (%) (Auto) , Neutrophils % (Manual) [Pending] , Lymphocytes % (Manual) [Pending], Platelet Estimate [Pending], Platelet Morphology [Pending], Prothrombin Time 11.7H, Prothromb Time International Ratio 1.1, Activated Partial Thromboplast Time 27, Sodium Level 143, Chloride Level 115H, Carbon Dioxide Level 19L, Anion Gap 9, Blood Urea Nitrogen 45H, Creatinine 2.0#H, Estimat Glomerular Filtration Rate 35.1, Glucose Level 189H, Hemoglobin A1c 5.3, Lactic Acid Level 0.50, Uric Acid 10.9H, Calcium Level 9.0, Phosphorus Level 3.8, Magnesium Level 2.3, Iron Level 60, Total Iron Binding Capacity 232L, Percent Iron Saturation 26, Unsaturated Iron Binding 172, Ferritin 435H, Total Bilirubin 0.5, Gamma Glutamyl Transpeptidase 197H, Aspartate Amino Transf (AST/SGOT) 97H, Alanine Aminotransferase (ALT/SGPT) 27, Alkaline Phosphatase 62, Ammonia 50H, Total Creatine Kinase 1265H, Troponin I 0.060H, C-Reactive Protein, Quantitative 2.5H, Pro-B-Type Natriuretic Peptide 1073H, Total Protein 7.3, Albumin 3.3L, Globulin 4.0, Albumin/Globulin Ratio 0.8L, Triglycerides Level 93, Cholesterol Level 101, LDL Cholesterol 59, HDL Cholesterol 25L, Cholesterol/HDL Ratio 4.0, Vitamin B12 Level 605, Folate 14.8, Thyroid Stimulating Hormone (TSH) 0.307L, Free Thyroxine 1.08 Height (Feet): 5 Height (Inches): 10.00 Weight (Pounds): 232 General Appearance: no apparent distress EENT: normal ENT inspection Neck: non-tender, normal alignment Cardiovascular: normal rate, regular rhythm Respiratory/Chest: decreased breath sounds Abdomen: soft, distended Extremities: non-tender Edema: mild edema Neurologic: alert, responsive Skin: warm/dry Ottoniel Espinal Jun 17, 2019 09:34
--- NOTE | 2019-06-17 10:23 | NUR ---
NURSE NOTES: MD Rakel made rounds, updates in regards to PT given that PT got EGD results portal HTN, echo results. Will continue to monitor PT.
--- NOTE | 2019-06-17 10:26 | Cardiac Electrophysiology PN ---
Assessment/Plan Assessment/Plan 1. Troponin elevation. The levels are low at 0.19 and 0.14. The patient does not have any chest pain. The EKG is nonischemic. This could be due to renal failure. His echocardiogram also showed ejection fraction of 65%. 2. Severe hyperkalemia without any arrhythmia, that is likely due to renal failure.Got kayaxelate 3. Likely septic shock. Off Levophed since 6.30 am today and on IV antibiotic. 4. GI bleed. The patient has history of heavy alcohol use. S/P EGD by Dr Gibbs Subjective Subjective Had EGD by Dr Gibbs that showed portal HTN. No biopsy. No CP or SOB. Off Levophed since 6.30 am today Objective Last 24 Hour Vital Signs Date Time Temp Pulse Resp B/P (MAP) Pulse Ox O2 Delivery O2 Flow Rate FiO2 06/17/19 09:30 97.9 68 15 138/88 100 Nasal Cannula 3 06/17/19 09:20 69 16 140/90 100 Nasal Cannula 3 06/17/19 09:10 68 15 135/85 100 Nasal Cannula 3 06/17/19 09:05 70 15 134/85 100 Nasal Cannula 3 06/17/19 09:05 72 16 100 06/17/19 09:00 97.1 71 15 134/88 100 Nasal Cannula 3 06/17/19 08:00 Room Air 06/17/19 08:00 75 16 132/79 (96) 99 06/17/19 07:30 76 11 124/76 (92) 100 06/17/19 07:00 98.5 78 16 116/69 (85) 99 06/17/19 06:30 63 15 132/77 (95) 98 06/17/19 06:00 68 15 118/71 (87) 98 06/17/19 05:30 68 17 120/74 (89) 99 06/17/19 05:13 83 22 107/85 (92) 100 06/17/19 05:00 107/85 06/17/19 04:30 77 17 116/68 (84) 99 06/17/19 04:00 98.2 79 18 119/70 (86) 99 06/17/19 04:00 77 06/17/19 04:00 Room Air 06/17/19 04:00 119/70 06/17/19 03:30 84 19 117/69 (85) 99 06/17/19 03:00 71 17 124/63 (83) 99 06/17/19 03:00 124/63 06/17/19 02:30 72 16 114/62 (79) 98 06/17/19 02:00 114/62 06/17/19 02:00 73 17 113/62 (79) 97 06/17/19 01:30 86 21 113/65 (81) 95 06/17/19 01:00 113/65 06/17/19 01:00 78 17 106/62 (77) 97 06/17/19 00:30 71 12 99/56 (70) 96 06/17/19 00:00 Room Air 06/17/19 00:00 104/53 06/17/19 00:00 98.6 77 16 104/53 (70) 98 06/16/19 23:30 80 19 102/60 (74) 99 06/16/19 23:00 90/50 06/16/19 23:00 74 14 100/54 (69) 99 06/16/19 22:30 75 13 97/54 (68) 99 06/16/19 22:00 91/50 06/16/19 22:00 74 14 93/54 (67) 100 06/16/19 21:45 76 13 90/50 (63) 100 06/16/19 21:30 75 13 86/48 (61) 99 06/16/19 21:15 77 13 97/54 (68) 100 06/16/19 21:00 95/54 06/16/19 21:00 82 18 99/54 (69) 100 06/16/19 20:45 76 16 105/55 (72) 100 06/16/19 20:30 85 17 100/55 (70) 98 06/16/19 20:00 Room Air 06/16/19 20:00 98.2 16 93/47 (62) 100 06/16/19 20:00 93/47 06/16/19 20:00 87 06/16/19 19:30 98.2 82 16 100/54 (69) 100 06/16/19 19:00 78 13 91/47 (62) 99 06/16/19 19:00 91/47 06/16/19 18:30 77 12 94/54 (67) 100 06/16/19 18:00 102/56 06/16/19 18:00 78 20 102/56 (71) 100 06/16/19 17:37 92/53 06/16/19 17:30 78 12 92/53 (66) 100 06/16/19 17:00 89 19 90/55 (67) 100 06/16/19 17:00 90/55 06/16/19 16:45 81 16 90/55 (67) 100 06/16/19 16:30 78 12 89/55 (66) 100 06/16/19 16:15 83 17 94/45 (61) 99 06/16/19 16:00 Room Air 06/16/19 16:00 76 06/16/19 16:00 98/58 06/16/19 16:00 98.0 85 15 98/58 (71) 99 06/16/19 15:49 108/52 06/16/19 15:30 77 12 93/53 (66) 100 06/16/19 15:00 77 11 96/59 (71) 100 06/16/19 15:00 96/59 06/16/19 14:30 79 16 106/62 (77) 100 06/16/19 14:00 107/64 06/16/19 14:00 82 19 107/64 (78) 100 06/16/19 13:30 79 13 107/61 (76) 100 06/16/19 13:00 79 13 105/59 (74) 100 06/16/19 13:00 105/59 06/16/19 12:30 79 13 100/56 (71) 100 06/16/19 12:15 78 13 100/56 (71) 100 06/16/19 12:00 84 06/16/19 12:00 98.0 81 13 106/63 (77) 100 06/16/19 12:00 139/82 06/16/19 12:00 Room Air 06/16/19 11:45 84 17 106/63 (77) 100 06/16/19 11:30 84 16 117/66 (83) 100 06/16/19 11:30 117/66 06/16/19 11:00 91 21 110/62 (78) 100 06/16/19 11:00 119/60 06/16/19 10:30 83 14 107/57 (74) 100 Intake and Output 06/16/19 06/17/19 18:59 06:59 Intake Total 2380.43 ml 1901.25 ml Output Total 3900 ml 2400 ml Balance -1519.57 ml -498.75 ml Intake Oral 0 ml 0 ml IV Total 2380.43 ml 1901.25 ml Output Urine Total 3900 ml 2400 ml Laboratory Tests Test 06/17/19 04:30 White Blood Count 2.6 K/UL (4.8-10.8) #L Red Blood Count 2.74 M/UL (4.70-6.10) L Hemoglobin 8.9 G/DL (14.2-18.0) L Hematocrit 25.7 % (42.0-52.0) L Mean Corpuscular Volume 94 FL (80-99) Mean Corpuscular Hemoglobin 32.5 PG (27.0-31.0) H Mean Corpuscular Hemoglobin Concent 34.7 G/DL (32.0-36.0) Red Cell Distribution Width 11.1 % (11.6-14.8) L Platelet Count 67 K/UL (150-450) L Mean Platelet Volume 4.2 FL (6.5-10.1) L Neutrophils (%) (Auto) % (45.0-75.0) Lymphocytes (%) (Auto) % (20.0-45.0) Monocytes (%) (Auto) % (1.0-10.0) Eosinophils (%) (Auto) % (0.0-3.0) Basophils (%) (Auto) % (0.0-2.0) Differential Total Cells Counted 100 Neutrophils % (Manual) 57 % (45-75) Lymphocytes % (Manual) 18 % (20-45) L Monocytes % (Manual) 18 % (1-10) H Eosinophils % (Manual) 6 % (0-3) H Basophils % (Manual) 1 % (0-2) Band Neutrophils 0 % (0-8) Platelet Estimate Decreased L Platelet Morphology Normal Hypochromasia 2+ Anisocytosis 1+ Spherocytes 1+ Prothrombin Time 11.7 SEC (9.30-11.50) H Prothromb Time International Ratio 1.1 (0.9-1.1) Activated Partial Thromboplast Time 27 SEC (23-33) Sodium Level 143 MMOL/L (136-145) Potassium Level 5.5 MMOL/L (3.5-5.1) H Chloride Level 115 MMOL/L (98-107) H Carbon Dioxide Level 19 MMOL/L (21-32) L Anion Gap 9 mmol/L (5-15) Blood Urea Nitrogen 45 mg/dL (7-18) H Creatinine 2.0 MG/DL (0.55-1.30) #H Estimat Glomerular Filtration Rate 35.1 mL/min (>60) Glucose Level 189 MG/DL (74-106) H Hemoglobin A1c 5.3 % (4.3-6.0) Lactic Acid Level 0.50 mmol/L (0.4-2.0) Uric Acid 10.9 MG/DL (2.6-7.2) H Calcium Level 9.0 MG/DL (8.5-10.1) Phosphorus Level 3.8 MG/DL (2.5-4.9) Magnesium Level 2.3 MG/DL (1.8-2.4) Iron Level 60 ug/dL (50-175) Total Iron Binding Capacity 232 ug/dL (250-450) L Percent Iron Saturation 26 % (15-50) Unsaturated Iron Binding 172 ug/dL (112-346) Ferritin 435 NG/ML (8-388) H Total Bilirubin 0.5 MG/DL (0.2-1.0) Gamma Glutamyl Transpeptidase 197 U/L (5-85) H Aspartate Amino Transf (AST/SGOT) 97 U/L (15-37) H Alanine Aminotransferase (ALT/SGPT) 27 U/L (12-78) Alkaline Phosphatase 62 U/L (46-116) Ammonia 50 umol/L (11-32) H Total Creatine Kinase 1265 U/L (26-308) H Troponin I 0.060 ng/mL (0.000-0.056) C-Reactive Protein, Quantitative 2.5 mg/dL (0.00-0.90) H Pro-B-Type Natriuretic Peptide 1073 pg/mL (0-125) H Total Protein 7.3 G/DL (6.4-8.2) Albumin 3.3 G/DL (3.4-5.0) L Globulin 4.0 g/dL Albumin/Globulin Ratio 0.8 (1.0-2.7) L Triglycerides Level 93 MG/DL (30-150) Cholesterol Level 101 MG/DL (< 200) LDL Cholesterol 59 mg/dL (<100) HDL Cholesterol 25 MG/DL (40-60) L Cholesterol/HDL Ratio 4.0 (3.3-4.4) Vitamin B12 Level 605 PG/ML (193-986) Folate 14.8 NG/ML (8.6-58.9) Thyroid Stimulating Hormone (TSH) 0.307 uiU/mL (0.358-3.740) Free Thyroxine 1.08 NG/DL (0.76-1.46) Microbiology Date/Time Source Procedure Growth Status 06/16/19 00:00 Blood Blood Culture - Preliminary NO GROWTH AFTER 24 HOURS Resulted 06/15/19 23:57 Blood Blood Culture - Preliminary NO GROWTH AFTER 24 HOURS Resulted Objective HEAD AND NECK: No JVD. LUNGS: Clear. CARDIOVASCULAR: Shows regular S1 and S2 with no gallop. There is dry blood in his mouth. ABDOMEN: Soft. EXTREMITIES: No pitting edema. Salvador Ellington MD Jun 17, 2019 10:26
--- NOTE | 2019-06-17 10:30 | Consultation ---
DATE OF CONSULTATION: 06/16/2019 GASTROENTEROLOGY CONSULTATION CONSULTING PHYSICIAN: Nancy Gibbs M.D. CHIEF COMPLAINT: I was asked to see this patient by Dr. Rachel Washington for evaluation of gastrointestinal bleeding. HISTORY OF PRESENT ILLNESS: The patient is a 54-year-old gentleman who comes in to the hospital and subsequently sent to the intensive care unit due to hypotension, renal failure, and other issues. The patient is also noted to have gastrointestinal bleeding and has a history of alcoholism. He has been seen by Cardiology, Renal, and Infectious Diseases services. He has had . He thinks he may have had an endoscopy several years ago, but he currently details. He has not had a colonoscopy. PAST MEDICAL HISTORY: Otherwise negative. MEDICATIONS: As outpatient, none. ALLERGIES: None. FAMILY HISTORY: Noncontributory. SOCIAL HISTORY: The patient smokes a pack of cigarettes a day. He drinks alcohol. REVIEW OF SYSTEMS: Otherwise negative. PHYSICAL EXAMINATION: GENERAL: A well-developed, well-nourished man in his room. HEENT: Normocephalic and atraumatic. Sclerae are anicteric. Oropharynx is clear. NECK: Supple. CHEST: Clear to auscultation. CARDIOVASCULAR: Revealed regular rate. ABDOMEN: Soft, nontender. EXTREMITIES: Revealed no edema. . ASSESSMENT: The patient gastrointestinal bleeding. He will have to be reevaluated with an endoscopy in the morning. The indications, risks, alternatives, and possible complications of procedure were explained to the patient, and informed consent was obtained. Given his history of drinking, possibility of varices . Therefore, I have started this patient on Sandostatin earlier today. The patient also received proton pump inhibitor, and he was kept NPO until endoscopy is completed. RECOMMENDATIONS: Per above discussion and per orders written in the chart. Thank you for asking me to participate in the care of this patient. Nancy Gibbs M.D. DR: Maddie JOB#: [id number] CC:
--- NOTE | 2019-06-17 10:57 | NUR ---
NURSE NOTES: PT morning meds given, no difficulty swallowing noted, PT A/O x 4; asking when he will be able to go home. Informed PT that additional MD's need to clear PT.
--- NOTE | 2019-06-17 11:48 | NUR ---
NURSE NOTES: Per MD Sai; PT to be transferred to Tele. KAN Oleary made aware. Will place order for .
--- NOTE | 2019-06-17 11:50 | NUR ---
*-* INSURANCE *-* ALL AVAILABLE CLINICALS HAVE BEEN FAXED TO:; [facility] tracking#[id number] CM: Lucy ph#[phone] ext [phone] fax#[phone]
[2019-06-17] MEDS ORDERED: NS 275ml ONE (12:10)
[2019-06-17] MEDS ORDERED: Tubing IV Secondary IV ONE (12:10)
[2019-06-17] MEDS ORDERED: D5NS 1000ml IV ONE ×2 (12:10→15:24)
[2019-06-17] MEDS ORDERED: D5W 275ml ONE (12:10)
[2019-06-17] MEDS: Thiamine HCl 100 MG in D5W 55 ML IVPB SCH (12:22)
[2019-06-17] MEDS ORDERED: Octreotide Acetate 500 MCG in Sodium Chloride 499 ML IV SCH (12:30)
[2019-06-17] MEDS: LORazepam Inj 2mg/ml 1ml IV PRN ×3 (12:36→23:50)
--- NOTE | 2019-06-17 12:51 | NUR ---
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 Can not recall where he got picked up, can not recall what substance he used prior to being admitted. PT also stated that he used heroin but doesn't recall where and whom he got it for. PT needs are being met, lunch given, great appetite, talkative, no respiratory distress on RA. PT says states he is in withdraw, doesn't recall if he is being treated for substance abused. PT provided additional jello, juice, water after he had his lunch. Will continue to monitor PT.
--- NOTE | 2019-06-17 12:55 | NUR ---
NURSE NOTES: PT Carafate at 1300 not administered as it was too close to previous one, PT was in GI lab getting EGD w/ MD Sai. KAN Oleary made aware.
--- NOTE | 2019-06-17 14:11 | NUR ---
NURSE NOTES: Witnessed PT trying to get out of bed, confused, took off his gown, BP cuff. Reorientation given, asked if needs are being met, PT says "I want to go to the bathroom"; advised PT he has urinal at bedside, able to urinate without assistance. PT able to follow commands, advised him to to stay in bed. Will continue to monitor PT.
--- NOTE | 2019-06-17 14:33 | NUR ---
NURSE NOTES: PT mother (Macie Mirta) called asking for updates about son, updates given, address to C provided, advised PT mother PT has orders to be transferred to Tele. Any other updates, she will be notified. Informed PT his mother called.
--- NOTE | 2019-06-17 15:09 | NUR ---
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 HYPOTENSION T. 98.3 HR 57 RR 20 B/P 142/88 WBC 2.6 K 5.5 BUN 45 CR 2.0 AMMONIA 50 BNP 1053 IS: IVF D5NS @ 75ML/HR LEVOPHED GTT THIAMINE IV OCTREOTIDE GTT ICU STATUS
[2019-06-17] MEDS ORDERED: D5 1/2NS 1000ml IV ONE (15:24)
--- NOTE | 2019-06-17 16:29 | NUR ---
NURSE NOTES: PT total bed linens changed, meatal care given, PT was able to assist with wiping himself down, followed commands well, non-combative, some confusion, reorientated; PT was given a total sponge bath with SALLIE Patrick. PT needs met; provided additional jello and juice; no difficulty swallowing noted. Will continue to monitor PT.
--- NOTE | 2019-06-17 18:20 | NUR ---
NURSE NOTES: PT cousin called to obtain information/update on PT, she stated that she is on the facesheet of the [facility] and on [facility]; but informed her that she is not on either one. AKN Oleary made aware.
--- NOTE | 2019-06-17 19:21 | NUR ---
HAND-OFF: Report and PT given to RYANNE Rowland.
--- NOTE | 2019-06-17 20:00 | NUR ---
NURSE NOTES: Received patient from RYANNE Rowland. Patient is stable; resting comfortably. On room air, O2 saturating at 100%. Vital signs are able. Bed low, locked and alarm is activated. Will continue plan of care.
[2019-06-17] MEDS: Dyna-Hex 2% Top Sol 2oz TOPIC SCH (20:35)
--- NOTE | 2019-06-17 21:24 | General Progress Note ---
Assessment/Plan Problem List: (1) Acute kidney failure ICD Codes: N17.9 - Acute kidney failure, unspecified SNOMED: 28324818 (2) Acute upper GI bleed ICD Codes: K92.2 - Gastrointestinal hemorrhage, unspecified SNOMED: 14501371 (3) AMS (altered mental status) ICD Codes: R41.82 - Altered mental status, unspecified SNOMED: 216570366 Status: progressing Assessment/Plan: reviewed chart and labs lyte abnormality afebrile nac no bleeding moniter for bleeding etoh cirhosis Subjective ROS Limited/Unobtainable: Yes Allergies: Coded Allergies: No Known Allergies (Unverified , 06/15/19) Objective Last 24 Hour Vital Signs Date Time Temp Pulse Resp B/P (MAP) Pulse Ox O2 Delivery O2 Flow Rate FiO2 06/17/19 18:00 78 17 139/91 (107) 100 06/17/19 17:00 64 16 141/82 (101) 100 06/17/19 16:00 Room Air 06/17/19 16:00 98.2 63 16 132/77 (95) 100 06/17/19 16:00 84 06/17/19 15:00 65 14 121/75 (90) 100 06/17/19 14:00 82 20 132/92 (105) 100 06/17/19 13:00 66 17 135/86 (102) 100 06/17/19 12:00 63 06/17/19 12:00 98.3 82 20 142/98 (113) 99 06/17/19 12:00 Room Air 06/17/19 11:00 80 18 131/87 (102) 100 06/17/19 10:00 57 15 127/75 (92) 100 06/17/19 09:30 97.9 68 15 138/88 100 Nasal Cannula 3 06/17/19 09:20 69 16 140/90 100 Nasal Cannula 3 06/17/19 09:10 68 15 135/85 100 Nasal Cannula 3 06/17/19 09:05 70 15 134/85 100 Nasal Cannula 3 06/17/19 09:05 72 16 100 06/17/19 09:00 97.1 71 15 134/88 100 Nasal Cannula 3 06/17/19 08:00 68 06/17/19 08:00 Room Air 06/17/19 08:00 75 16 132/79 (96) 99 06/17/19 07:30 76 11 124/76 (92) 100 06/17/19 07:00 98.5 78 16 116/69 (85) 99 06/17/19 06:30 63 15 132/77 (95) 98 06/17/19 06:00 68 15 118/71 (87) 98 06/17/19 05:30 68 17 120/74 (89) 99 06/17/19 05:13 83 22 107/85 (92) 100 06/17/19 05:00 107/85 06/17/19 04:30 77 17 116/68 (84) 99 06/17/19 04:00 98.2 79 18 119/70 (86) 99 06/17/19 04:00 77 06/17/19 04:00 Room Air 06/17/19 04:00 119/70 06/17/19 03:30 84 19 117/69 (85) 99 06/17/19 03:00 71 17 124/63 (83) 99 06/17/19 03:00 124/63 06/17/19 02:30 72 16 114/62 (79) 98 06/17/19 02:00 114/62 06/17/19 02:00 73 17 113/62 (79) 97 06/17/19 01:30 86 21 113/65 (81) 95 06/17/19 01:00 113/65 06/17/19 01:00 78 17 106/62 (77) 97 06/17/19 00:30 71 12 99/56 (70) 96 06/17/19 00:00 Room Air 06/17/19 00:00 104/53 06/17/19 00:00 98.6 77 16 104/53 (70) 98 06/16/19 23:30 80 19 102/60 (74) 99 06/16/19 23:00 90/50 06/16/19 23:00 74 14 100/54 (69) 99 06/16/19 22:30 75 13 97/54 (68) 99 06/16/19 22:00 91/50 06/16/19 22:00 74 14 93/54 (67) 100 06/16/19 21:45 76 13 90/50 (63) 100 06/16/19 21:30 75 13 86/48 (61) 99 Intake and Output 06/16/19 06/17/19 19:00 07:00 Intake Total 2562.93 ml 1743.75 ml Output Total 4800 ml 1500 ml Balance -2237.07 ml 243.75 ml Intake Oral 0 ml 0 ml IV Total 2562.93 ml 1743.75 ml Output Urine Total 4800 ml 1500 ml Laboratory Tests 06/17/19 04:30: White Blood Count 2.6#L, Red Blood Count 2.74L, Hemoglobin 8.9L, Hematocrit 25.7L, Mean Corpuscular Volume 94, Mean Corpuscular Hemoglobin 32.5H, Mean Corpuscular Hemoglobin Concent 34.7, Red Cell Distribution Width 11.1L, Platelet Count 67L, Mean Platelet Volume 4.2L, Neutrophils (%) (Auto) , Lymphocytes (%) (Auto) , Monocytes (%) (Auto) , Eosinophils (%) (Auto) , Basophils (%) (Auto) , Differential Total Cells Counted 100, Neutrophils % ( Manual) 57, Lymphocytes % (Manual) 18L, Monocytes % (Manual) 18H, Eosinophils % (Manual) 6H, Basophils % (Manual) 1, Band Neutrophils 0, Platelet Estimate DecreasedL, Platelet Morphology Normal, Hypochromasia 2+, Anisocytosis 1+, Spherocytes 1+, Prothrombin Time 11.7H, Prothromb Time International Ratio 1.1, Activated Partial Thromboplast Time 27, Sodium Level 143, Potassium Level 5.5H, Chloride Level 115H, Carbon Dioxide Level 19L, Anion Gap 9, Blood Urea Nitrogen 45H, Creatinine 2.0#H, Estimat Glomerular Filtration Rate 35.1, Glucose Level 189H, Hemoglobin A1c 5.3, Lactic Acid Level 0.50, Uric Acid 10.9H, Calcium Level 9.0, Phosphorus Level 3.8, Magnesium Level 2.3, Iron Level 60, Total Iron Binding Capacity 232L, Percent Iron Saturation 26, Unsaturated Iron Binding 172 , Ferritin 435H, Total Bilirubin 0.5, Gamma Glutamyl Transpeptidase 197H, Aspartate Amino Transf (AST/SGOT) 97H, Alanine Aminotransferase (ALT/SGPT) 27, Alkaline Phosphatase 62, Ammonia 50H, Total Creatine Kinase 1265H, Troponin I 0.060H, C-Reactive Protein, Quantitative 2.5H, Pro-B-Type Natriuretic Peptide 1073H, Total Protein 7.3, Albumin 3.3L, Globulin 4.0, Albumin/Globulin Ratio 0.8L, Triglycerides Level 93, Cholesterol Level 101, LDL Cholesterol 59, HDL Cholesterol 25L, Cholesterol/HDL Ratio 4.0, Vitamin B12 Level 605, Folate 14.8, Thyroid Stimulating Hormone (TSH) 0.307L, Free Thyroxine 1.08 06/17/19 08:00: Urine Eosinophils None seen Height (Feet): 5 Height (Inches): 10.00 Weight (Pounds): 232 Cardiovascular: normal rate Abdomen: tender Rachel Washington MD Jun 17, 2019 21:24
--- NOTE | 2019-06-17 22:00 | NUR ---
NURSE NOTES: Patient is resting comfortably. Complaints of dryness leading to pain on lips; A&D ointment applied. All other needs are met. Bed alarm is activated. Will continue to monitor.
[2019-06-18] VITALS (11 sets, daily range): BP systolic 123–150; BP diastolic 81–98
--- NOTE | 2019-06-18 | NUR ---
NURSE NOTES: Patient is having a bit of anxiety due to the fact that he states "I dont know what is happening to my body". He admits to abusing Heroin and he is currently detoxing from. Reminded patient that he is in the hospital to help him get well. Also re-oriented him on why he needs to keep medical devices on and explain what each are for. Patient also kept asking for his cell phone. His belongings were check along side him and no cell phone was present. Belonging list in chart and there was no cell phone accounted for upon admission. Bed low, locked, and alarm and activated. Call light within reach.
--- NOTE | 2019-06-18 02:00 | NUR ---
NURSE NOTES: Patient is sleeping comfortably, showing no signs of pain or distress. No more anxiety shown and is able to move ad reposition himself.
--- NOTE | 2019-06-18 04:00 | NUR ---
NURSE NOTES: Patient was sleeping comfortably. Patient awake but drowsy. Bed bath, oral care, linen and gown change provided. Patient states that he feels much better. He is able to shift his weight and reposition himself. Will continue care.
[2019-06-18 05:34] LABS: HEMATOCRIT 25.2 % (42.0-52.0); HEMOGLOBIN 8.9 G/DL (14.2-18.0); MEAN CORPUSCULAR VOLUME 92 FL (80-99); PLATELET COUNT 84 K/UL (150-450); RED BLOOD COUNT 2.74 M/UL (4.70-6.10); RED CELL DISTRIBUTION WIDTH 11.1 % (11.6-14.8); WHITE BLOOD COUNT 3.7 K/UL (4.8-10.8)
--- NOTE | 2019-06-18 06:00 | NUR ---
NURSE NOTES: Patient had an episode of agitation and confusion. Patient was pulling on lines and states that he feels trapped. Re-oriented him about what each lines are used for. Patient repositioned back into bed.
[2019-06-18 06:04] LABS: ALANINE AMINOTRANSFERASE 28 U/L (12-78); ALBUMIN 3.2 G/DL (3.4-5.0); ALBUMIN/GLOBULIN RATIO 0.8 (1.0-2.7); ALKALINE PHOSPHATASE 58 U/L (46-116); ANION GAP 8 mmol/L (5-15); ASPARTATE AMINO TRANSFERASE 71 U/L (15-37); BILIRUBIN,TOTAL 0.5 MG/DL (0.2-1.0); BLOOD UREA NITROGEN 32 mg/dL (7-18); CALCIUM 8.8 MG/DL (8.5-10.1); CARBON DIOXIDE 21 MMOL/L (21-32); CHLORIDE 112 MMOL/L (98-107); CREATININE 1.5 MG/DL (0.55-1.30); PHOSPHORUS 3.1 MG/DL (2.5-4.9); POTASSIUM 5.2 MMOL/L (3.5-5.1); SODIUM 141 MMOL/L (136-145)
--- NOTE | 2019-06-18 07:09 | NUR ---
NURSE NOTES: Report given to RYANNE Myers. Will transfer patient to [facility]. Patient is comfortable and stable.
[2019-06-18] MEDS ORDERED: Octreotide Acetate 500 MCG in Sodium Chloride 499 ML IV SCH (07:30)
--- NOTE | 2019-06-18 07:33 | NUR ---
NURSE NOTES: RECEIVED REPORT FROM MARVIN PEARL. PT IN BED. A/OX3, SHOWING SIGNS OF CONFUSION. PUPILS 3MM SLUGGISH. GAG REFLEX PRESENT. VSS. ON R.A. NO RESPIRATORY DISTRESS NOTED. LUNG SOUNDS DIMINISHED. ABDOMEN ROUND, SOFT BOWEL SOUNDS HYPOACTIVE. BLADDER FLAT, URINAL AT BEDSIDE. SKIN- SEE ASSESSMENT. SKIN DRY. BILATERAL RADIAL AND PEDAL PULSES WEAK. EDEMA OF UPPER EXTREMITIES. RT IJ TLC, DRESSING MOIST, WILL CHANGE. RUNNING D51/2 NS @75ML/HR, SANDOSTATIN @25ML/HR @100ML/HR. NO BM AT THIS TIME. NO C/O PAIN. PT WANTS TO GET OUT THE HOSPITAL, BETTER NOW. CONTACT PRECAUTIONS IN PLACE. BED LOCKED IN LOW POSITION, ALARM ON. EDUCATION OF PLAN OF CARE, SIDE EFFECTS OF MEDICATION. WILL CONTINUE TO MONITOR PT.
--- NOTE | 2019-06-18 08:26 | NUR ---
NURSE NOTES: MD GROSS HERE TO SEE PT. PT REPORTS NO MORE VOMITING BLOOD. RECEIVED ORDER FROM MD TO INPUT REGULAR DIET. CALLED DIETARY TO UPGRADE TRAY.
[2019-06-18] MEDS: D5 1/2NS 1,000 ML IV SCH ×2 (09:09→20:33)
[2019-06-18] MEDS: Tamsulosin 0.4mg cap ORAL SCH ×2 (09:09→18:31)
[2019-06-18] MEDS: Sucralfate 1gm tab ORAL SCH ×4 (09:09→20:32)
[2019-06-18] MEDS: Pantoprazole Inj IVP SCH ×2 (09:09→20:32)
--- NOTE | 2019-06-18 09:29 | General Progress Note ---
Assessment/Plan Status: progressing Assessment/Plan: (1) Altered mental status (2) Polysubstance abuse Patient to be continued on Ativan as per psych D/w Dr. Fischer and he concurred. Subjective Date patient seen: Jun 18, 2019 Time patient seen: 08:00 - am Constitutional: Reports: weakness HEENT: Reports: no symptoms Cardiovascular: Reports: no symptoms Respiratory: Reports: no symptoms Gastrointestinal/Abdominal: Reports: no symptoms Genitourinary: Reports: no symptoms Neurologic/Psychiatric: Reports: weakness Endocrine: Reports: no symptoms Hematologic/Lymphatic: Reports: no symptoms Allergies: Coded Allergies: No Known Allergies (Unverified , 06/15/19) Subjective Patient in bed no signs of pain or distress. No new complaints at this time Objective Last 24 Hour Vital Signs Date Time Temp Pulse Resp B/P (MAP) Pulse Ox O2 Delivery O2 Flow Rate FiO2 06/18/19 07:00 54 19 142/82 (102) 100 06/18/19 06:00 55 20 145/90 (108) 99 06/18/19 05:00 56 17 130/81 (97) 99 06/18/19 04:00 Room Air 06/18/19 04:00 98.5 72 19 150/90 (110) 99 06/18/19 03:26 83 06/18/19 03:00 61 20 142/85 (104) 99 06/18/19 02:00 58 22 140/98 (112) 100 06/18/19 01:00 77 21 137/83 (101) 100 06/18/19 00:00 97.8 76 20 123/88 (100) 100 06/18/19 00:00 Room Air 06/17/19 23:27 79 06/17/19 23:00 78 19 135/77 (96) 99 06/17/19 22:00 65 19 144/88 (106) 100 06/17/19 21:00 65 19 134/83 (100) 99 06/17/19 20:00 Room Air 06/17/19 20:00 65 18 143/86 (105) 100 06/17/19 19:12 74 06/17/19 19:00 98.4 73 19 131/77 (95) 100 06/17/19 18:00 78 17 139/91 (107) 100 06/17/19 17:00 64 16 141/82 (101) 100 06/17/19 16:00 Room Air 06/17/19 16:00 98.2 63 16 132/77 (95) 100 06/17/19 16:00 84 06/17/19 15:00 65 14 121/75 (90) 100 06/17/19 14:00 82 20 132/92 (105) 100 06/17/19 13:00 66 17 135/86 (102) 100 06/17/19 12:00 63 06/17/19 12:00 98.3 82 20 142/98 (113) 99 06/17/19 12:00 Room Air 06/17/19 11:00 80 18 131/87 (102) 100 06/17/19 10:00 57 15 127/75 (92) 100 06/17/19 09:30 97.9 68 15 138/88 100 Nasal Cannula 3 Intake and Output 06/17/19 06/18/19 18:59 06:59 Intake Total 1901.8333 ml 1148.75 ml Output Total 1050 ml 1300 ml Balance 851.8333 ml -151.25 ml Intake Oral 0 ml IV Total 1428.8333 ml 1148.75 ml Other 473 ml Output Urine Total 1050 ml 1300 ml # Voids 4 Laboratory Tests 06/18/19 01:00: Urine Eosinophils Occasional 06/18/19 04:45: White Blood Count 3.7L, Red Blood Count 2.74L, Hemoglobin 8.9L, Hematocrit 25.2L , Mean Corpuscular Volume 92, Mean Corpuscular Hemoglobin 32.6H, Mean Corpuscular Hemoglobin Concent 35.5, Red Cell Distribution Width 11.1L, Platelet Count 84L, Mean Platelet Volume 4.5L, Neutrophils (%) (Auto) , Lymphocytes (%) (Auto) , Monocytes (%) (Auto) , Eosinophils (%) (Auto) , Basophils (%) (Auto) , Sodium Level 141, Potassium Level 5.2H, Chloride Level 112H, Carbon Dioxide Level 21, Anion Gap 8, Blood Urea Nitrogen 32H, Creatinine 1.5H, Estimat Glomerular Filtration Rate 49.0, Glucose Level 135H, Uric Acid 9.0H, Calcium Level 8.8, Phosphorus Level 3.1, Magnesium Level 1.9, Total Bilirubin 0.5, Aspartate Amino Transf (AST/SGOT) 71H, Alanine Aminotransferase ( ALT/SGPT) 28, Alkaline Phosphatase 58, Total Protein 7.3, Albumin 3.2L, Globulin 4.1, Albumin/Globulin Ratio 0.8L Height (Feet): 5 Height (Inches): 10.00 Weight (Pounds): 240 General Appearance: no apparent distress, alert EENT: PERRL/EOMI, normal ENT inspection Neck: non-tender, normal alignment Cardiovascular: normal rate, regular rhythm Respiratory/Chest: decreased breath sounds Abdomen: non tender, soft Extremities: non-tender Edema: 1+ Generalized Neurologic: alert, responsive Skin: warm/dry Ottoniel Espinal Jun 18, 2019 09:29
[2019-06-18] MEDS ORDERED: Thiamine HCl 100 MG in D5W 55 ML IVPB SCH (12:00)
--- NOTE | 2019-06-18 12:01 | NUR ---
NURSE NOTES: PT IN BED. A/OX3, SHOWING SIGNS OF CONFUSION. PT ATTEMPTING TO GET OUT OF BED, WEAK ON FEET AND NEEDS ASSISTANCE TO BATHROOM, REFUSED TO USE BEDSIDE COMMODE. VSS. ON R.A. NO RESPIRATORY DISTRESS NOTED. LUNCH TRAY HERE, PT STATES HAS APPETITE. SKIN DRY. BILATERAL RADIAL AND PEDAL PULSES WEAK. RUNNING D51/2 NS @75ML/HR, SANDOSTATIN @25ML/HR @100ML/HR. ONE BM, SMALL AND FORMED. NO C/O PAIN. PT WANTS TO GET OUT THE HOSPITAL, BETTER NOW, WANTS TO CALL FAMILY, WANTS TO KNOW WHERE CELL PHONE IS. REASSURED NO CELL PHONE IN BELONGINGS. CONTACT PRECAUTIONS IN PLACE. BED LOCKED IN LOW POSITION, ALARM ON. WILL CONTINUE TO MONITOR PT.
--- NOTE | 2019-06-18 12:13 | Cardiac Electrophysiology PN ---
Assessment/Plan Assessment/Plan 1. Troponin elevation. The levels are low at 0.19 and 0.14. The patient does not have any chest pain. The EKG is nonischemic. This could be due to renal failure. His echocardiogram also showed ejection fraction of 65%. 2. Severe hyperkalemia without any arrhythmia, that is likely due to renal failure.Got kayaxelate 3. S/P septic shock. Off Levophed since yesterday on IV antibiotic. 4. GI bleed. The patient has history of heavy alcohol use. S/P EGD by Dr Sai PALOMO RN Subjective Subjective No CP or SOB transferred out of ICU Objective Last 24 Hour Vital Signs Date Time Temp Pulse Resp B/P (MAP) Pulse Ox O2 Delivery O2 Flow Rate FiO2 06/18/19 10:46 61 06/18/19 08:00 Room Air 06/18/19 07:00 54 19 142/82 (102) 100 06/18/19 06:00 55 20 145/90 (108) 99 06/18/19 05:00 56 17 130/81 (97) 99 06/18/19 04:00 Room Air 06/18/19 04:00 98.5 72 19 150/90 (110) 99 06/18/19 03:26 83 06/18/19 03:00 61 20 142/85 (104) 99 06/18/19 02:00 58 22 140/98 (112) 100 06/18/19 01:00 77 21 137/83 (101) 100 06/18/19 00:00 97.8 76 20 123/88 (100) 100 06/18/19 00:00 Room Air 06/17/19 23:27 79 06/17/19 23:00 78 19 135/77 (96) 99 06/17/19 22:00 65 19 144/88 (106) 100 06/17/19 21:00 65 19 134/83 (100) 99 06/17/19 20:00 Room Air 06/17/19 20:00 65 18 143/86 (105) 100 06/17/19 19:12 74 06/17/19 19:00 98.4 73 19 131/77 (95) 100 06/17/19 18:00 78 17 139/91 (107) 100 06/17/19 17:00 64 16 141/82 (101) 100 06/17/19 16:00 Room Air 06/17/19 16:00 98.2 63 16 132/77 (95) 100 06/17/19 16:00 84 06/17/19 15:00 65 14 121/75 (90) 100 06/17/19 14:00 82 20 132/92 (105) 100 06/17/19 13:00 66 17 135/86 (102) 100 Intake and Output 06/17/19 06/18/19 18:59 06:59 Intake Total 1901.8333 ml 1148.75 ml Output Total 1050 ml 1300 ml Balance 851.8333 ml -151.25 ml Intake Oral 0 ml IV Total 1428.8333 ml 1148.75 ml Other 473 ml Output Urine Total 1050 ml 1300 ml # Voids 4 Laboratory Tests Test 06/18/19 01:00 06/18/19 04:45 Urine Eosinophils Occasional (NONE SEEN) White Blood Count 3.7 K/UL (4.8-10.8) L Red Blood Count 2.74 M/UL (4.70-6.10) L Hemoglobin 8.9 G/DL (14.2-18.0) L Hematocrit 25.2 % (42.0-52.0) L Mean Corpuscular Volume 92 FL (80-99) Mean Corpuscular Hemoglobin 32.6 PG (27.0-31.0) H Mean Corpuscular Hemoglobin Concent 35.5 G/DL (32.0-36.0) Red Cell Distribution Width 11.1 % (11.6-14.8) L Platelet Count 84 K/UL (150-450) L Mean Platelet Volume 4.5 FL (6.5-10.1) L Neutrophils (%) (Auto) % (45.0-75.0) Lymphocytes (%) (Auto) % (20.0-45.0) Monocytes (%) (Auto) % (1.0-10.0) Eosinophils (%) (Auto) % (0.0-3.0) Basophils (%) (Auto) % (0.0-2.0) Sodium Level 141 MMOL/L (136-145) Potassium Level 5.2 MMOL/L (3.5-5.1) H Chloride Level 112 MMOL/L (98-107) H Carbon Dioxide Level 21 MMOL/L (21-32) Anion Gap 8 mmol/L (5-15) Blood Urea Nitrogen 32 mg/dL (7-18) H Creatinine 1.5 MG/DL (0.55-1.30) H Estimat Glomerular Filtration Rate 49.0 mL/min (>60) Glucose Level 135 MG/DL (74-106) H Uric Acid 9.0 MG/DL (2.6-7.2) H Calcium Level 8.8 MG/DL (8.5-10.1) Phosphorus Level 3.1 MG/DL (2.5-4.9) Magnesium Level 1.9 MG/DL (1.8-2.4) Total Bilirubin 0.5 MG/DL (0.2-1.0) Aspartate Amino Transf (AST/SGOT) 71 U/L (15-37) H Alanine Aminotransferase (ALT/SGPT) 28 U/L (12-78) Alkaline Phosphatase 58 U/L (46-116) Total Protein 7.3 G/DL (6.4-8.2) Albumin 3.2 G/DL (3.4-5.0) L Globulin 4.1 g/dL Albumin/Globulin Ratio 0.8 (1.0-2.7) L Microbiology Date/Time Source Procedure Growth Status 06/16/19 00:00 Blood Blood Culture - Preliminary NO GROWTH AFTER 48 HOURS Resulted 06/15/19 23:57 Blood Blood Culture - Preliminary NO GROWTH AFTER 48 HOURS Resulted 06/15/19 22:00 Nasal Nares MRSA Culture - Final Staphylococcus Aureus - Mrsa Complete 06/15/19 22:00 Rectum - Final NO CARBAPENEM-RESISTANT ENTEROBACTERI... Complete 06/15/19 22:00 Rectum VRE Culture - Final NO VANCOMYCIN RESISTANT ENTEROCOCCUS ... Complete Objective HEAD AND NECK: No JVD. LUNGS: Clear. CARDIOVASCULAR: Shows regular S1 and S2 with no gallop. There is dry blood in his mouth. ABDOMEN: Soft. EXTREMITIES: No pitting edema. Salvador Ellington MD Jun 18, 2019 12:13
--- NOTE | 2019-06-18 13:31 | Nephrology Progress Note ---
Assessment/Plan Problem List: (1) Acute kidney failure Assessment: cr 5.3 on admit lowering now (2) Acute upper GI bleed Assessment: Anemia (3) Hyperkalemia (4) Hyponatremia (5) Encephalopathy (6) Elevated troponin (7) Cirrhosis Assessment Acute kidney failure GI Bleed Hyperkalemia Hyponatremia Elevated troponin Encephalopathy Amphetamines in urine Plan had endoscopy slow Hydrate Flomax- has urinary residual Thiamin Monitor Electrolyte and renal parameters Kidney KEVIN 2D echo Urine studies per orders Transfer to tele ? Subjective ROS Limited/Unobtainable: No Constitutional: Reports: malaise Objective Objective Last 24 Hour Vital Signs Date Time Temp Pulse Resp B/P (MAP) Pulse Ox O2 Delivery O2 Flow Rate FiO2 06/18/19 10:46 61 06/18/19 08:00 Room Air 06/18/19 07:00 54 19 142/82 (102) 100 06/18/19 06:00 55 20 145/90 (108) 99 06/18/19 05:00 56 17 130/81 (97) 99 06/18/19 04:00 Room Air 06/18/19 04:00 98.5 72 19 150/90 (110) 99 06/18/19 03:26 83 06/18/19 03:00 61 20 142/85 (104) 99 06/18/19 02:00 58 22 140/98 (112) 100 06/18/19 01:00 77 21 137/83 (101) 100 06/18/19 00:00 97.8 76 20 123/88 (100) 100 06/18/19 00:00 Room Air 06/17/19 23:27 79 06/17/19 23:00 78 19 135/77 (96) 99 06/17/19 22:00 65 19 144/88 (106) 100 06/17/19 21:00 65 19 134/83 (100) 99 06/17/19 20:00 Room Air 06/17/19 20:00 65 18 143/86 (105) 100 06/17/19 19:12 74 06/17/19 19:00 98.4 73 19 131/77 (95) 100 06/17/19 18:00 78 17 139/91 (107) 100 06/17/19 17:00 64 16 141/82 (101) 100 06/17/19 16:00 Room Air 06/17/19 16:00 98.2 63 16 132/77 (95) 100 06/17/19 16:00 84 06/17/19 15:00 65 14 121/75 (90) 100 06/17/19 14:00 82 20 132/92 (105) 100 Intake and Output 06/17/19 06/18/19 18:59 06:59 Intake Total 1901.8333 ml 1148.75 ml Output Total 1050 ml 1300 ml Balance 851.8333 ml -151.25 ml Intake Oral 0 ml IV Total 1428.8333 ml 1148.75 ml Other 473 ml Output Urine Total 1050 ml 1300 ml # Voids 4 Laboratory Tests 06/18/19 01:00: Urine Eosinophils Occasional 06/18/19 04:45: White Blood Count 3.7L, Red Blood Count 2.74L, Hemoglobin 8.9L, Hematocrit 25.2L , Mean Corpuscular Volume 92, Mean Corpuscular Hemoglobin 32.6H, Mean Corpuscular Hemoglobin Concent 35.5, Red Cell Distribution Width 11.1L, Platelet Count 84L, Mean Platelet Volume 4.5L, Neutrophils (%) (Auto) , Lymphocytes (%) (Auto) , Monocytes (%) (Auto) , Eosinophils (%) (Auto) , Basophils (%) (Auto) , Sodium Level 141, Potassium Level 5.2H, Chloride Level 112H, Carbon Dioxide Level 21, Anion Gap 8, Blood Urea Nitrogen 32H, Creatinine 1.5H, Estimat Glomerular Filtration Rate 49.0, Glucose Level 135H, Uric Acid 9.0H, Calcium Level 8.8, Phosphorus Level 3.1, Magnesium Level 1.9, Total Bilirubin 0.5, Aspartate Amino Transf (AST/SGOT) 71H, Alanine Aminotransferase ( ALT/SGPT) 28, Alkaline Phosphatase 58, Total Protein 7.3, Albumin 3.2L, Globulin 4.1, Albumin/Globulin Ratio 0.8L Height (Feet): 5 Height (Inches): 10.00 Weight (Pounds): 240 General Appearance: no apparent distress Objective no change Vic Kaufman MD Jun 18, 2019 13:31
[2019-06-18] MEDS: LORazepam Inj 2mg/ml 1ml IV PRN (14:25)
--- NOTE | 2019-06-18 15:53 | NUR ---
*-* INSURANCE *-* ALL AVAILABLE CLINICALS HAVE BEEN FAXED TO:; [facility] tracking#[id number] CM: Lucy ph#[phone] ext [phone] fax#[phone]
--- NOTE | 2019-06-18 16:00 | NUR ---
NURSE NOTES: PT IN BED. A/OX3. PT CONTINUES TO SIT ON EDGE OF BED. REORIENTED ROOM AND CALL LIGHT. PT STATES UNDERSTANDING. VSS. ON R.A. NO RESPIRATORY DISTRESS NOTED. DINNER TRAY HERE, PT STATES NOT MUCH APPETITE. RUNNING D51/2 NS @75ML/HR. NO C/O PAIN. CONTACT PRECAUTIONS IN PLACE. BED LOCKED IN LOW POSITION, ALARM ON. WILL CONTINUE TO MONITOR PT.
--- NOTE | 2019-06-18 16:37 | NUR ---
[employer] OFFICER: REVIEW SI: AMS . ACUTE KIDNEY FAILURE . ENCEPHALOPATHY T 98.5 HR 54 RR 20 BP 150/90 SAT 99% ROOM AIR WBC 3.7 H/H 8.9/25.2 K 5.2 BUN 32 CR 1.5 IS: D5NS IVF @ 75ML/HR THIAMINE PO QD PROTONIX IV Q12HR STEP DOWN UNIT STATUS DCP: PATIENT IS FROM [facility]
[2019-06-18] MEDS ORDERED: Docusate 100mg cap ORAL SCH (18:00)
--- NOTE | 2019-06-18 19:08 | General Progress Note ---
Assessment/Plan Status: progressing Assessment/Plan: Assessment - Cirrhosis - Hepatitis C - GIB - renal failure - hyperkalemia Recommendations - po diet - d/c sandostatin gtt - follow CBC - outpatient HCV Rx Subjective Allergies: Coded Allergies: No Known Allergies (Unverified , 06/15/19) Subjective above noted more stable off of Levo gtt as of this am no further N/V d/w renal - Cr better Hepatitis C Ab positive Objective Last 24 Hour Vital Signs Date Time Temp Pulse Resp B/P (MAP) Pulse Ox O2 Delivery O2 Flow Rate FiO2 06/18/19 16:00 97.2 63 24 144/89 (107) 99 06/18/19 16:00 68 06/18/19 16:00 Room Air 06/18/19 12:00 97.8 66 19 147/90 (109) 100 06/18/19 12:00 Room Air 06/18/19 11:31 59 06/18/19 10:46 61 06/18/19 08:00 Room Air 06/18/19 07:00 54 19 142/82 (102) 100 06/18/19 06:00 55 20 145/90 (108) 99 06/18/19 05:00 56 17 130/81 (97) 99 06/18/19 04:00 Room Air 06/18/19 04:00 98.5 72 19 150/90 (110) 99 06/18/19 03:26 83 06/18/19 03:00 61 20 142/85 (104) 99 06/18/19 02:00 58 22 140/98 (112) 100 06/18/19 01:00 77 21 137/83 (101) 100 06/18/19 00:00 97.8 76 20 123/88 (100) 100 06/18/19 00:00 Room Air 06/17/19 23:27 79 06/17/19 23:00 78 19 135/77 (96) 99 06/17/19 22:00 65 19 144/88 (106) 100 06/17/19 21:00 65 19 134/83 (100) 99 06/17/19 20:00 Room Air 06/17/19 20:00 65 18 143/86 (105) 100 06/17/19 19:12 74 Intake and Output 06/17/19 06/18/19 19:00 07:00 Intake Total 1976.8333 ml 1148.75 ml Output Total 1050 ml 1300 ml Balance 926.8333 ml -151.25 ml Intake Oral 0 ml IV Total 1503.8333 ml 1148.75 ml Other 473 ml Output Urine Total 1050 ml 1300 ml # Voids 4 Laboratory Tests 06/18/19 01:00: Urine Eosinophils Occasional 06/18/19 04:45: White Blood Count 3.7L, Red Blood Count 2.74L, Hemoglobin 8.9L, Hematocrit 25.2L , Mean Corpuscular Volume 92, Mean Corpuscular Hemoglobin 32.6H, Mean Corpuscular Hemoglobin Concent 35.5, Red Cell Distribution Width 11.1L, Platelet Count 84L, Mean Platelet Volume 4.5L, Neutrophils (%) (Auto) , Lymphocytes (%) (Auto) , Monocytes (%) (Auto) , Eosinophils (%) (Auto) , Basophils (%) (Auto) , Sodium Level 141, Potassium Level 5.2H, Chloride Level 112H, Carbon Dioxide Level 21, Anion Gap 8, Blood Urea Nitrogen 32H, Creatinine 1.5H, Estimat Glomerular Filtration Rate 49.0, Glucose Level 135H, Uric Acid 9.0H, Calcium Level 8.8, Phosphorus Level 3.1, Magnesium Level 1.9, Total Bilirubin 0.5, Aspartate Amino Transf (AST/SGOT) 71H, Alanine Aminotransferase ( ALT/SGPT) 28, Alkaline Phosphatase 58, Total Protein 7.3, Albumin 3.2L, Globulin 4.1, Albumin/Globulin Ratio 0.8L Height (Feet): 5 Height (Inches): 10.00 Weight (Pounds): 240 Objective mildly obese man NCAT supple CTA RR abd soft ND NT no edema non focal, alert Nancy Gibbs MD Jun 18, 2019 19:08
--- NOTE | 2019-06-18 19:30 | NUR ---
NURSE NOTES: Report received from RYANNE Myers. Observed pt dangling side of the bed. A/O x 2-3, occasionally confused. SR on manager monitoring. On room air with no signs of SOB noted. Abd soft, round, and non-tender. IV on R IJ TLC, noted, intact and running D5 1/2 NS at 75cc/hr. Bed in the lowest position. Call light within reach. Bed alarm on. Side rails up x2. Will continue to monitor.
[2019-06-18] MEDS ORDERED: Dyna-Hex 2% Top Sol 2oz TOPIC SCH (20:00)
--- NOTE | 2019-06-18 22:28 | General Progress Note ---
Assessment/Plan Problem List: (1) Acute kidney failure ICD Codes: N17.9 - Acute kidney failure, unspecified SNOMED: 04960272 (2) Acute upper GI bleed ICD Codes: K92.2 - Gastrointestinal hemorrhage, unspecified SNOMED: 91144426 (3) AMS (altered mental status) ICD Codes: R41.82 - Altered mental status, unspecified SNOMED: 206576770 Status: progressing Assessment/Plan: azotemia no vomitting no acute events no bleeding moniter for bleeding etoh cirhosis Subjective ROS Limited/Unobtainable: Yes Allergies: Coded Allergies: No Known Allergies (Unverified , 06/15/19) Objective Last 24 Hour Vital Signs Date Time Temp Pulse Resp B/P (MAP) Pulse Ox O2 Delivery O2 Flow Rate FiO2 06/18/19 20:00 57 06/18/19 20:00 Room Air 06/18/19 20:00 97.2 63 20 140/87 (104) 98 06/18/19 16:00 97.2 63 24 144/89 (107) 99 06/18/19 16:00 68 06/18/19 16:00 Room Air 06/18/19 12:00 97.8 66 19 147/90 (109) 100 06/18/19 12:00 Room Air 06/18/19 11:31 59 06/18/19 10:46 61 06/18/19 08:00 Room Air 06/18/19 07:00 54 19 142/82 (102) 100 06/18/19 06:00 55 20 145/90 (108) 99 06/18/19 05:00 56 17 130/81 (97) 99 06/18/19 04:00 Room Air 06/18/19 04:00 98.5 72 19 150/90 (110) 99 06/18/19 03:26 83 06/18/19 03:00 61 20 142/85 (104) 99 06/18/19 02:00 58 22 140/98 (112) 100 06/18/19 01:00 77 21 137/83 (101) 100 06/18/19 00:00 97.8 76 20 123/88 (100) 100 06/18/19 00:00 Room Air 06/17/19 23:27 79 06/17/19 23:00 78 19 135/77 (96) 99 Intake and Output 06/17/19 06/18/19 19:00 07:00 Intake Total 1976.8333 ml 1148.75 ml Output Total 1050 ml 1300 ml Balance 926.8333 ml -151.25 ml Intake Oral 0 ml IV Total 1503.8333 ml 1148.75 ml Other 473 ml Output Urine Total 1050 ml 1300 ml # Voids 4 Laboratory Tests 06/18/19 01:00: Urine Eosinophils Occasional 06/18/19 04:45: White Blood Count 3.7L, Red Blood Count 2.74L, Hemoglobin 8.9L, Hematocrit 25.2L , Mean Corpuscular Volume 92, Mean Corpuscular Hemoglobin 32.6H, Mean Corpuscular Hemoglobin Concent 35.5, Red Cell Distribution Width 11.1L, Platelet Count 84L, Mean Platelet Volume 4.5L, Neutrophils (%) (Auto) , Lymphocytes (%) (Auto) , Monocytes (%) (Auto) , Eosinophils (%) (Auto) , Basophils (%) (Auto) , Sodium Level 141, Potassium Level 5.2H, Chloride Level 112H, Carbon Dioxide Level 21, Anion Gap 8, Blood Urea Nitrogen 32H, Creatinine 1.5H, Estimat Glomerular Filtration Rate 49.0, Glucose Level 135H, Uric Acid 9.0H, Calcium Level 8.8, Phosphorus Level 3.1, Magnesium Level 1.9, Total Bilirubin 0.5, Aspartate Amino Transf (AST/SGOT) 71H, Alanine Aminotransferase ( ALT/SGPT) 28, Alkaline Phosphatase 58, Total Protein 7.3, Albumin 3.2L, Globulin 4.1, Albumin/Globulin Ratio 0.8L Height (Feet): 5 Height (Inches): 10.00 Weight (Pounds): 240 Cardiovascular: normal rate Respiratory/Chest: lungs clear Abdomen: soft Rachel Washington MD Jun 18, 2019 22:28
[2019-06-18] MEDS ORDERED: NS 275ml ONE (22:51)
[2019-06-18] MEDS ORDERED: 1/2 NS 1000ml IV ONE (22:51)
[2019-06-19] VITALS: BP 131/69
--- NOTE | 2019-06-19 00:10 | NUR ---
NURSE NOTES: Noted pt agitated and confused. Pt keeps getting out of bed without using call light. Weak gait noted. Reorientation done and encourage to use call light. Will continue to monitor.
[2019-06-19] MEDS: LORazepam Inj 2mg/ml 1ml IV PRN ×3 (00:53→13:20)
--- NOTE | 2019-06-19 01:00 | NUR ---
NURSE NOTES: Pt still agitated and confused, keeps getting out of bed. VS WNL. SR on hall monitor. PRN med given. Will continue to monitor.
[2019-06-19 04:00] VITALS: BP 141/74
[2019-06-19 05:09] LABS: HEMATOCRIT 22.3 % (42.0-52.0); MEAN CORPUSCULAR VOLUME 91 FL (80-99); PLATELET COUNT 84 K/UL (150-450); RED BLOOD COUNT 2.46 M/UL (4.70-6.10); RED CELL DISTRIBUTION WIDTH 10.7 % (11.6-14.8); WHITE BLOOD COUNT 4.1 K/UL (4.8-10.8)
--- NOTE | 2019-06-19 05:15 | NUR ---
TRANSFER TO FLOOR: Patient transferred to [facility], room 220-2, Report given to RYANNE Simon. Belongings and medications given to RN. No acute distress noted at this time.
[2019-06-19 05:17] LABS: ALANINE AMINOTRANSFERASE 21 U/L (12-78); ALBUMIN 2.9 G/DL (3.4-5.0); ALBUMIN/GLOBULIN RATIO 0.9 (1.0-2.7); ALKALINE PHOSPHATASE 53 U/L (46-116); ANION GAP 9 mmol/L (5-15); ASPARTATE AMINO TRANSFERASE 51 U/L (15-37); BILIRUBIN,TOTAL 0.6 MG/DL (0.2-1.0); BLOOD UREA NITROGEN 21 mg/dL (7-18); CALCIUM 7.5 MG/DL (8.5-10.1); CARBON DIOXIDE 20 MMOL/L (21-32); CHLORIDE 113 MMOL/L (98-107); CREATININE 1.2 MG/DL (0.55-1.30); GAMMA GLUTAMYL TRANSPEPTIDASE 178 U/L (5-85); PHOSPHORUS 3.2 MG/DL (2.5-4.9); POTASSIUM 4.3 MMOL/L (3.5-5.1); SODIUM 142 MMOL/L (136-145)
--- NOTE | 2019-06-19 05:20 | NUR ---
received pt transferred from [facility] from RYANNE Hercules. Pt is awake and resting in bed in no acute distress. IJ site intact and patent. Oriented pt to floor and room. Belongings checked. Bed locked in lowest position, bed alarm on, call light within reach. Will continue with plan of care.
[2019-06-19 05:27] LABS: AMMONIA 32 umol/L (11-32)
[2019-06-19] MEDS ORDERED: D5 1/2NS 1,000 ML IV SCH (05:45)
--- NOTE | 2019-06-19 07:03 | NUR ---
Gave report to RYANNE Dawkins. Pt is awake and resting in bed. IJ site intact and patent. Bed locked in lowest position, bed alarm on, call light within reach. Endorsed plan of care.
--- NOTE | 2019-06-19 07:08 | NUR ---
NURSE NOTES: Received report from RYANNE Alicia. Pt in bed resting, respirations unlabored, no apparent distress noted, bed in lowest position, call light within reach, IV fluids running according to order.
[2019-06-19 08:00] VITALS: BP 145/99
[2019-06-19] MEDS ORDERED: Pantoprazole Inj IVP SCH (09:00)
[2019-06-19] MEDS ORDERED: Tamsulosin 0.4mg cap ORAL SCH (09:00)
[2019-06-19] MEDS ORDERED: Magnesium Oxide 400mg tab ORAL SCH (09:00)
[2019-06-19] MEDS ORDERED: Thiamine 100mg tab ORAL SCH ×2 (09:00)
[2019-06-19] MEDS: Sucralfate 1gm tab ORAL SCH ×4 (09:09→21:00)
[2019-06-19] MEDS: Docusate 100mg cap ORAL SCH ×3 (09:10→17:23)
--- NOTE | 2019-06-19 09:15 | General Progress Note ---
Assessment/Plan Status: progressing Assessment/Plan: Assessment/Plan Status: progressing Assessment/Plan: Assessment - Cirrhosis - Hepatitis C - GIB - renal failure - hyperkalemia Recommendations - po diet - follow CBC - outpatient HCV Rx Subjective Allergies: Coded Allergies: No Known Allergies (Unverified , 06/15/19) Objective Last 24 Hour Vital Signs Date Time Temp Pulse Resp B/P (MAP) Pulse Ox O2 Delivery O2 Flow Rate FiO2 06/19/19 08:00 97.3 57 20 145/99 (114) 100 06/19/19 07:16 Room Air 06/19/19 04:00 97.2 53 18 141/74 (96) 99 06/19/19 04:00 65 06/19/19 04:00 Room Air 06/19/19 00:00 98.2 64 18 131/69 (89) 98 06/19/19 00:00 59 06/19/19 00:00 Room Air 06/18/19 20:00 57 06/18/19 20:00 Room Air 06/18/19 20:00 97.2 63 20 140/87 (104) 98 06/18/19 16:00 97.2 63 24 144/89 (107) 99 06/18/19 16:00 68 06/18/19 16:00 Room Air 06/18/19 12:00 97.8 66 19 147/90 (109) 100 06/18/19 12:00 Room Air 06/18/19 11:31 59 06/18/19 10:46 61 Intake and Output 06/18/19 06/19/19 19:00 07:00 Intake Total 375 ml 990 ml Output Total 280 ml 1000 ml Balance 95 ml -10 ml Intake Oral 300 ml 240 ml IV Total 75 ml 750 ml Output Urine Total 280 ml 1000 ml Laboratory Tests 06/19/19 04:00: White Blood Count 4.1L, Red Blood Count 2.46L, Hemoglobin 8.0L, Hematocrit 22.3L , Mean Corpuscular Volume 91, Mean Corpuscular Hemoglobin 32.6H, Mean Corpuscular Hemoglobin Concent 36.0, Red Cell Distribution Width 10.7L, Platelet Count 84L, Mean Platelet Volume 4.1L, Neutrophils (%) (Auto) , Lymphocytes (%) (Auto) , Monocytes (%) (Auto) , Eosinophils (%) (Auto) , Basophils (%) (Auto) , Neutrophils % (Manual) [Pending], Lymphocytes % (Manual) [Pending], Platelet Estimate [Pending], Platelet Morphology [Pending], Urine Eosinophils None seen, Sodium Level 142, Potassium Level 4.3, Chloride Level 113H, Carbon Dioxide Level 20L, Anion Gap 9, Blood Urea Nitrogen 21H, Creatinine 1.2, Estimat Glomerular Filtration Rate > 60, Glucose Level 101, Uric Acid 7.2, Calcium Level 7.5L, Phosphorus Level 3.2, Magnesium Level 1.5L, Total Bilirubin 0.6, Gamma Glutamyl Transpeptidase 178H, Aspartate Amino Transf (AST/SGOT) 51H, Alanine Aminotransferase (ALT/SGPT) 21, Alkaline Phosphatase 53 , Ammonia 32, C-Reactive Protein, Quantitative < 0.4, Total Protein 6.3L, Albumin 2.9L, Globulin 3.4, Albumin/Globulin Ratio 0.9L Height (Feet): 5 Height (Inches): 10.00 Weight (Pounds): 250 General Appearance: no apparent distress EENT: normal ENT inspection Neck: supple Cardiovascular: normal rate Respiratory/Chest: decreased breath sounds Abdomen: normal bowel sounds, non tender, soft Extremities: non-tender Branden Sunshine MD Jun 19, 2019 09:15
--- NOTE | 2019-06-19 09:24 | Nephrology Progress Note ---
Assessment/Plan Problem List: (1) Acute kidney failure Assessment: cr 5.3 on admit lowering now (2) Acute upper GI bleed Assessment: Anemia (3) Hyperkalemia (4) Hyponatremia (5) Encephalopathy (6) Elevated troponin (7) Cirrhosis Assessment Acute kidney failure GI Bleed Hyperkalemia Hyponatremia Elevated troponin Encephalopathy Amphetamines in urine Plan had endoscopy slow Hydrate Flomax- has urinary residual Thiamin Monitor Electrolyte and renal parameters Kidney KEVIN 2D echo Urine studies per orders Transfer to med surg Subjective ROS Limited/Unobtainable: No Constitutional: Reports: malaise Objective Objective Last 24 Hour Vital Signs Date Time Temp Pulse Resp B/P (MAP) Pulse Ox O2 Delivery O2 Flow Rate FiO2 06/19/19 08:00 97.3 57 20 145/99 (114) 100 06/19/19 07:16 Room Air 06/19/19 04:00 97.2 53 18 141/74 (96) 99 06/19/19 04:00 65 06/19/19 04:00 Room Air 06/19/19 00:00 98.2 64 18 131/69 (89) 98 06/19/19 00:00 59 06/19/19 00:00 Room Air 06/18/19 20:00 57 06/18/19 20:00 Room Air 06/18/19 20:00 97.2 63 20 140/87 (104) 98 06/18/19 16:00 97.2 63 24 144/89 (107) 99 06/18/19 16:00 68 06/18/19 16:00 Room Air 06/18/19 12:00 97.8 66 19 147/90 (109) 100 06/18/19 12:00 Room Air 06/18/19 11:31 59 06/18/19 10:46 61 Intake and Output 06/18/19 06/19/19 19:00 07:00 Intake Total 375 ml 990 ml Output Total 280 ml 1000 ml Balance 95 ml -10 ml Intake Oral 300 ml 240 ml IV Total 75 ml 750 ml Output Urine Total 280 ml 1000 ml Laboratory Tests 06/19/19 04:00: White Blood Count 4.1L, Red Blood Count 2.46L, Hemoglobin 8.0L, Hematocrit 22.3L , Mean Corpuscular Volume 91, Mean Corpuscular Hemoglobin 32.6H, Mean Corpuscular Hemoglobin Concent 36.0, Red Cell Distribution Width 10.7L, Platelet Count 84L, Mean Platelet Volume 4.1L, Neutrophils (%) (Auto) , Lymphocytes (%) (Auto) , Monocytes (%) (Auto) , Eosinophils (%) (Auto) , Basophils (%) (Auto) , Neutrophils % (Manual) [Pending], Lymphocytes % (Manual) [Pending], Platelet Estimate [Pending], Platelet Morphology [Pending], Urine Eosinophils None seen, Sodium Level 142, Potassium Level 4.3, Chloride Level 113H, Carbon Dioxide Level 20L, Anion Gap 9, Blood Urea Nitrogen 21H, Creatinine 1.2, Estimat Glomerular Filtration Rate > 60, Glucose Level 101, Uric Acid 7.2, Calcium Level 7.5L, Phosphorus Level 3.2, Magnesium Level 1.5L, Total Bilirubin 0.6, Gamma Glutamyl Transpeptidase 178H, Aspartate Amino Transf (AST/SGOT) 51H, Alanine Aminotransferase (ALT/SGPT) 21, Alkaline Phosphatase 53 , Ammonia 32, C-Reactive Protein, Quantitative < 0.4, Total Protein 6.3L, Albumin 2.9L, Globulin 3.4, Albumin/Globulin Ratio 0.9L Height (Feet): 5 Height (Inches): 10.00 Weight (Pounds): 250 General Appearance: no apparent distress Cardiovascular: normal rate Respiratory/Chest: decreased breath sounds Abdomen: soft Objective no change Vic Kaufman MD Jun 19, 2019 09:24
--- NOTE | 2019-06-19 10:17 | NUR ---
NURSE NOTES: Notified Dr. Herrera hgb 8.0, hct 22.3
[2019-06-19 11:42] VITALS: BP_SYST 154; BP_SYST 155; BP_DIAS 67; BP_DIAS 77
--- NOTE | 2019-06-19 12:54 | NUR ---
NURSE NOTES: Pt is continuously stating he wants to leave, RN has attempted several times to reorient pt to where he is and why is he here. Pt continuously trying to get out of bed, despite having an right IJ catheter in with Magnesium running. RN has discussed this with the pt several times today. RN notified Dr. Washington of this behavior and asked if he would like to discharge pt back to SNF Addendum: 06/19/19 at 1330 by TAYO SALVADOR RN NURSE NOTES: Dr. Washington stated that pt is not ready for DC and that he will probably go tomorrow. RN talked to pt and he stated "I am getting out of here regardless" RN notified Dr. Washington of updated situation with pt. RN talked to pt that he is from SNF and will need ambulance transport to go back and that if he leaves AMA he will not be able to go back to SNF. RN is working on calming pt and helping him re-orient.
--- NOTE | 2019-06-19 14:00 | NUR ---
HAND-OFF: Report given to RYANNE Coyne].
--- NOTE | 2019-06-19 14:05 | NUR ---
NURSE NOTES: Received patient from tele. Patient is asleep @ this time. All belongings accounted for. Right IJ TLC intact, dressing CDI. Bed is in lowest position and locked. Bed alarm is on and call light within reach. Will continue to monitor.
[2019-06-19] MEDS ORDERED: LORazepam Inj 2mg/ml 1ml IV PRN (14:15)
--- NOTE | 2019-06-19 14:25 | NUR ---
NURSE NOTES: patient is awake, trying to change his gown to his own clothes to leave the hospital. RN and charge nurse explained benefits and risks. Security was called. Will continue to monitor.
--- NOTE | 2019-06-19 14:58 | Cardiac Electrophysiology PN ---
Assessment/Plan Assessment/Plan 1. Troponin elevation. The levels are low at 0.19 and 0.14. No chest pain. The EKG is nonischemic. This could be due to renal failure. His echocardiogram also showed ejection fraction of 65 %. 2. Severe hyperkalemia without any arrhythmia, that is likely due to renal failure. Resolved 3. S/P septic shock. Off Levophed on antibiotic. 4. GI bleed. The patient has history of heavy alcohol use. S/P EGD by Dr Sai PALOMO RN Subjective Subjective No CP or SOB on NMB. Went down to smoke and brought back by security. DC in progress Objective Last 24 Hour Vital Signs Date Time Temp Pulse Resp B/P (MAP) Pulse Ox O2 Delivery O2 Flow Rate FiO2 06/19/19 11:42 97.6 65 20 155/77 (103) 100 06/19/19 11:37 59 06/19/19 08:00 97.3 57 20 145/99 (114) 100 06/19/19 07:36 72 06/19/19 07:16 Room Air 06/19/19 04:00 97.2 53 18 141/74 (96) 99 06/19/19 04:00 65 06/19/19 04:00 Room Air 06/19/19 00:00 98.2 64 18 131/69 (89) 98 06/19/19 00:00 59 06/19/19 00:00 Room Air 06/18/19 20:00 57 06/18/19 20:00 Room Air 06/18/19 20:00 97.2 63 20 140/87 (104) 98 06/18/19 16:00 97.2 63 24 144/89 (107) 99 06/18/19 16:00 68 06/18/19 16:00 Room Air Intake and Output 06/18/19 06/19/19 18:59 06:59 Intake Total 400 ml 1065 ml Output Total 280 ml 1000 ml Balance 120 ml 65 ml Intake Oral 300 ml 240 ml IV Total 100 ml 825 ml Output Urine Total 280 ml 1000 ml Laboratory Tests Test 06/19/19 04:00 White Blood Count 4.1 K/UL (4.8-10.8) L Red Blood Count 2.46 M/UL (4.70-6.10) L Hemoglobin 8.0 G/DL (14.2-18.0) L Hematocrit 22.3 % (42.0-52.0) L Mean Corpuscular Volume 91 FL (80-99) Mean Corpuscular Hemoglobin 32.6 PG (27.0-31.0) H Mean Corpuscular Hemoglobin Concent 36.0 G/DL (32.0-36.0) Red Cell Distribution Width 10.7 % (11.6-14.8) L Platelet Count 84 K/UL (150-450) L Mean Platelet Volume 4.1 FL (6.5-10.1) L Neutrophils (%) (Auto) % (45.0-75.0) Lymphocytes (%) (Auto) % (20.0-45.0) Monocytes (%) (Auto) % (1.0-10.0) Eosinophils (%) (Auto) % (0.0-3.0) Basophils (%) (Auto) % (0.0-2.0) Differential Total Cells Counted 100 Neutrophils % (Manual) 60 % (45-75) Lymphocytes % (Manual) 21 % (20-45) Monocytes % (Manual) 12 % (1-10) H Eosinophils % (Manual) 6 % (0-3) H Basophils % (Manual) 1 % (0-2) Band Neutrophils 0 % (0-8) Platelet Estimate Decreased L Platelet Morphology Normal Hypochromasia 2+ Anisocytosis 1+ Spherocytes 2+ Urine Eosinophils None seen (NONE SEEN) Sodium Level 142 MMOL/L (136-145) Potassium Level 4.3 MMOL/L (3.5-5.1) Chloride Level 113 MMOL/L (98-107) H Carbon Dioxide Level 20 MMOL/L (21-32) L Anion Gap 9 mmol/L (5-15) Blood Urea Nitrogen 21 mg/dL (7-18) H Creatinine 1.2 MG/DL (0.55-1.30) Estimat Glomerular Filtration Rate > 60 mL/min (>60) Glucose Level 101 MG/DL (74-106) Uric Acid 7.2 MG/DL (2.6-7.2) Calcium Level 7.5 MG/DL (8.5-10.1) L Phosphorus Level 3.2 MG/DL (2.5-4.9) Magnesium Level 1.5 MG/DL (1.8-2.4) L Total Bilirubin 0.6 MG/DL (0.2-1.0) Gamma Glutamyl Transpeptidase 178 U/L (5-85) H Aspartate Amino Transf (AST/SGOT) 51 U/L (15-37) H Alanine Aminotransferase (ALT/SGPT) 21 U/L (12-78) Alkaline Phosphatase 53 U/L (46-116) Ammonia 32 umol/L (11-32) C-Reactive Protein, Quantitative < 0.4 mg/dL (0.00-0.90) Total Protein 6.3 G/DL (6.4-8.2) L Albumin 2.9 G/DL (3.4-5.0) L Globulin 3.4 g/dL Albumin/Globulin Ratio 0.9 (1.0-2.7) L Objective HEAD AND NECK: No JVD. LUNGS: Clear. CARDIOVASCULAR: Regular S1 and S2 with no gallop. ABDOMEN: Soft. EXTREMITIES: No pitting edema. Salvador Ellington MD Jun 19, 2019 14:58
--- NOTE | 2019-06-19 15:00 | NUR ---
NURSE NOTES: RN placed calls to [facility] to follow up with discharge. No one is answering @ this time. Will follow up.
--- NOTE | 2019-06-19 15:35 | Cardiology Report ---
APPROVED REPORT EKG Measurement Heart [id number] Normal sinus rhythm Low voltage QRS Borderline ECG
--- NOTE | 2019-06-19 15:40 | NUR ---
NURSE NOTES: RN spoke to Aaron Admission coordinator regarding discharge. Faxed all the paper work that needs to [phone], phone number is [phone]. She will call [facility] after she reviews the paper. Per intermediate nurse, patient signed on AMA and left [facility] prior to admitting to [facility].Will follow up.Patient is in bed, asleep @ this time. Bed is in lowest position and locked. Bed alarm is on.
[2019-06-19 16:00] VITALS: BP 138/98
--- NOTE | 2019-06-19 17:00 | NUR ---
NURSE NOTES: RN faxed the face sheet, H&P to Aaron, admission coordinator @[facility] @[phone] but Aaron said she did not receive any fax from [facility], will follow up again. Addendum: 06/19/19 at 1802 by AARON BASURTO RN she said she has no other fax number.
--- NOTE | 2019-06-19 17:20 | NUR ---
NURSE NOTES: Patient is aggressive and impulsive , verbally abusive with f-word,s-word @ this time, taking on the phone with his family member and started cursing @ RN without apparent reason. Rn tried to assist the patient while he was walking since he is unsteady. Security was called and ativan IV was given to the patient. Will continue to monitor.
[2019-06-19] MEDS: Tamsulosin 0.4mg cap ORAL SCH (17:23)
--- NOTE | 2019-06-19 17:49 | NUR ---
NURSE NOTES: RN placed calls to Aaron to check if she got the fax but no one answered the phone and Rn left message with call back number.
--- NOTE | 2019-06-19 18:00 | NUR ---
NURSE NOTES: RN spoke to patient's cousin Jeana on the phone and informed patient is going to be She said "He broke the rule so he was kicked out from the facility and I was told he was not going to accepted and I can't take him to my place." RN left message to Dr. tony.
--- NOTE | 2019-06-19 18:40 | NUR ---
NURSE NOTES: Patient is walking the hallway and refused to be assisted. RN walked by him. Patient says " I want to smoke and I need fresh air." RN explained the smoking policy again. Patient started getting upset. Security was called.
--- NOTE | 2019-06-19 18:51 | NUR ---
C SOFTWARE ENGINEERCORRUGATOR HELPER SI: AMS. HYPOTENSION T 98.8 HR 62 RR 18 B/P 138/98 SATS 100% ON RA LABS 4.1 CL 113 CO2 20 BUN 21 CA 7.5 MG 1.5 GGT 178 AST 51 IS: FLOMAX PO BID CARAFATE PO QID MED/SURG STATUS
[2019-06-19] MEDS ORDERED: Haloperidol 5mg/ml Inj IM SCH (19:00)
[2019-06-19] MEDS ORDERED: DiphenhydrAMINE 50mg/ml Inj IM SCH (19:00)
[2019-06-19] MEDS ORDERED: LORazepam Inj 2mg/ml 1ml IM SCH (19:00)
--- NOTE | 2019-06-19 19:00 | NUR ---
NURSE NOTES: Patient is sitting in the chair in front of his room, calm @ this time.
--- NOTE | 2019-06-19 19:20 | NUR ---
HAND-OFF: Report given to
--- NOTE | 2019-06-19 19:30 | NUR ---
NURSE NOTES: Received patient on bed, awake and verbally responsive. respirations even and unlabored.alert and oriented x 2. no c/o pain or discomfort. bed in lowest position. needs attended and met. no noted skin issues. call light and light button within easy reach. will continue plan of care.
--- NOTE | 2019-06-19 19:35 | NUR ---
NURSE NOTES: Received orders from Dr. Washington to cancel d/c today and CM consult for new placement.
[2019-06-19] MEDS: Dyna-Hex 2% Top Sol 2oz TOPIC SCH (20:00)
[2019-06-19] MEDS ORDERED: Dyna-Hex 2% Top Sol 2oz TOPIC SCH (20:00)
--- NOTE | 2019-06-19 20:00 | General Progress Note ---
Assessment/Plan Problem List: (1) Acute kidney failure ICD Codes: N17.9 - Acute kidney failure, unspecified SNOMED: 02800776 (2) Acute upper GI bleed ICD Codes: K92.2 - Gastrointestinal hemorrhage, unspecified SNOMED: 15099921 (3) AMS (altered mental status) ICD Codes: R41.82 - Altered mental status, unspecified SNOMED: 802209430 Status: progressing Assessment/Plan: azotemia need safe place to go moniter for bleeding afebr etoh cirhosis afebrile Subjective ROS Limited/Unobtainable: Yes Allergies: Coded Allergies: No Known Allergies (Unverified , 06/15/19) Objective Last 24 Hour Vital Signs Date Time Temp Pulse Resp B/P (MAP) Pulse Ox O2 Delivery O2 Flow Rate FiO2 06/19/19 16:00 98.8 62 18 138/98 (111) 100 06/19/19 11:42 97.6 65 20 155/77 (103) 100 06/19/19 11:37 59 06/19/19 08:00 97.3 57 20 145/99 (114) 100 06/19/19 07:36 72 06/19/19 07:16 Room Air 06/19/19 04:00 97.2 53 18 141/74 (96) 99 06/19/19 04:00 65 06/19/19 04:00 Room Air 06/19/19 00:00 98.2 64 18 131/69 (89) 98 06/19/19 00:00 59 06/19/19 00:00 Room Air 06/18/19 20:00 57 06/18/19 20:00 Room Air 06/18/19 20:00 97.2 63 20 140/87 (104) 98 Intake and Output 06/18/19 06/19/19 19:00 07:00 Intake Total 375 ml 990 ml Output Total 280 ml 1000 ml Balance 95 ml -10 ml Intake Oral 300 ml 240 ml IV Total 75 ml 750 ml Output Urine Total 280 ml 1000 ml Laboratory Tests 06/19/19 04:00: White Blood Count 4.1L, Red Blood Count 2.46L, Hemoglobin 8.0L, Hematocrit 22.3L , Mean Corpuscular Volume 91, Mean Corpuscular Hemoglobin 32.6H, Mean Corpuscular Hemoglobin Concent 36.0, Red Cell Distribution Width 10.7L, Platelet Count 84L, Mean Platelet Volume 4.1L, Neutrophils (%) (Auto) , Lymphocytes (%) (Auto) , Monocytes (%) (Auto) , Eosinophils (%) (Auto) , Basophils (%) (Auto) , Differential Total Cells Counted 100, Neutrophils % ( Manual) 60, Lymphocytes % (Manual) 21, Monocytes % (Manual) 12H, Eosinophils % ( Manual) 6H, Basophils % (Manual) 1, Band Neutrophils 0, Platelet Estimate DecreasedL, Platelet Morphology Normal, Hypochromasia 2+, Anisocytosis 1+, Spherocytes 2+, Urine Eosinophils None seen, Sodium Level 142, Potassium Level 4.3, Chloride Level 113H, Carbon Dioxide Level 20L, Anion Gap 9, Blood Urea Nitrogen 21H, Creatinine 1.2, Estimat Glomerular Filtration Rate > 60, Glucose Level 101, Uric Acid 7.2, Calcium Level 7.5L, Phosphorus Level 3.2, Magnesium Level 1.5L, Total Bilirubin 0.6, Gamma Glutamyl Transpeptidase 178H, Aspartate Amino Transf (AST/SGOT) 51H, Alanine Aminotransferase (ALT/SGPT) 21, Alkaline Phosphatase 53, Ammonia 32, C-Reactive Protein, Quantitative < 0.4, Total Protein 6.3L, Albumin 2.9L, Globulin 3.4, Albumin/Globulin Ratio 0.9L Height (Feet): 5 Height (Inches): 10.00 Weight (Pounds): 250 Cardiovascular: normal rate Respiratory/Chest: lungs clear Rachel Washington MD Jun 19, 2019 20:00
--- NOTE | 2019-06-19 21:00 | NUR ---
NURSE NOTES: patient is asleep. unable to administer haldol,benadryl and lorazepam.
--- NOTE | 2019-06-20 06:25 | General Progress Note ---
Assessment/Plan Status: progressing Assessment/Plan: Assessment/Plan Status: progressing Assessment/Plan: Assessment - Cirrhosis - Hepatitis C - GIB - renal failure - hyperkalemia Recommendations - po diet - follow CBC - outpatient HCV Rx Subjective Allergies: Coded Allergies: No Known Allergies (Unverified , 06/15/19) Objective Last 24 Hour Vital Signs Date Time Temp Pulse Resp B/P (MAP) Pulse Ox O2 Delivery O2 Flow Rate FiO2 06/19/19 21:00 Room Air 06/19/19 16:00 98.8 62 18 138/98 (111) 100 06/19/19 11:42 97.6 65 20 155/77 (103) 100 06/19/19 11:37 59 06/19/19 08:00 97.3 57 20 145/99 (114) 100 06/19/19 07:36 72 06/19/19 07:16 Room Air Intake and Output 06/19/19 06/20/19 19:00 07:00 Intake Total 250 ml Output Total 700 ml Balance -450 ml Intake Oral 250 ml Output Urine Total 700 ml Height (Feet): 5 Height (Inches): 10.00 Weight (Pounds): 243 General Appearance: no apparent distress EENT: normal ENT inspection Neck: supple Cardiovascular: normal rate Respiratory/Chest: lungs clear Abdomen: normal bowel sounds, non tender, soft Extremities: non-tender Branden Sunshine MD Jun 20, 2019 06:25
--- NOTE | 2019-06-20 07:16 | NUR ---
HAND-OFF: Report given to Marivel Kuhn.
--- NOTE | 2019-06-20 07:30 | NUR ---
NURSE NOTES: Received pt from ARISTIDES RN. Pt is alert and aggitated and keep asking to go home. pt has iv access RIJ that pt is trying to pull out. pt is in RA, no SOB or acute respiratory distress noted. all needs attended, bed is locked and is in the lowest position , call [id number] within easy reach. will continue to monitor.
[2019-06-20] MEDS ORDERED: LORazepam Inj 2mg/ml 1ml IM SCH (08:15)
[2019-06-20] MEDS ORDERED: DiphenhydrAMINE 50mg/ml Inj IM SCH (08:15)
[2019-06-20] MEDS ORDERED: Haloperidol 5mg/ml Inj IM SCH (08:15)
[2019-06-20] MEDS: Tamsulosin 0.4mg cap ORAL SCH ×2 (08:47→17:27)
[2019-06-20] MEDS: Magnesium Oxide 400mg tab ORAL SCH ×3 (08:47→17:27)
[2019-06-20] MEDS: Sucralfate 1gm tab ORAL SCH ×4 (08:47→21:00)
[2019-06-20] MEDS: Thiamine 100mg tab ORAL SCH (08:47)
[2019-06-20] MEDS: Docusate 100mg cap ORAL SCH ×3 (08:47→17:27)
--- NOTE | 2019-06-20 09:32 | NUR ---
NURSE NOTES: Patient is very agitated, guarded, and using vulgar language towards staff. Patient reports that he wants to leave. Patient is alert and oriented. Dr. Mejia notified. New orders received. Medication given, but patient still agitated. Security called. Patient not following commands. Patient upset because he wants to leave. Patient started breaking items in room. Broke frame, tore bag of dirty linens, took linen off both beds in room. Patient sat on chair and began rolling self down hallway, not following security's commands to stay in room. Security called [employer]. Officers arrived and directed patient to stay in room and follow staffs commands. Dr. Washington notified. New order received to discontinue TLC on right jugular, since patient kept threatening to pull line himself.
--- NOTE | 2019-06-20 11:07 | General Progress Note ---
Assessment/Plan Problem List: (1) Acute kidney failure ICD Codes: N17.9 - Acute kidney failure, unspecified SNOMED: 85420904 (2) Acute upper GI bleed ICD Codes: K92.2 - Gastrointestinal hemorrhage, unspecified SNOMED: 60334387 (3) AMS (altered mental status) ICD Codes: R41.82 - Altered mental status, unspecified SNOMED: 223790971 Status: progressing Assessment/Plan: agitated had to remove ij for safety dr shen is on the case for his agitatiion and aggressive behavior neeeds to go to safe place dc order given etoh cirhosis afebrile Subjective ROS Limited/Unobtainable: Yes Allergies: Coded Allergies: No Known Allergies (Unverified , 06/15/19) Objective Last 24 Hour Vital Signs Date Time Temp Pulse Resp B/P (MAP) Pulse Ox O2 Delivery O2 Flow Rate FiO2 06/19/19 21:00 Room Air 06/19/19 16:00 98.8 62 18 138/98 (111) 100 06/19/19 11:42 97.6 65 20 155/77 (103) 100 06/19/19 11:37 59 Intake and Output 06/19/19 06/20/19 19:00 07:00 Intake Total 250 ml Output Total 700 ml Balance -450 ml Intake Oral 250 ml Output Urine Total 700 ml Height (Feet): 5 Height (Inches): 10.00 Weight (Pounds): 243 Cardiovascular: normal peripheral pulses Respiratory/Chest: lungs clear Abdomen: soft Rachel Washington MD Jun 20, 2019 11:07
[2019-06-20 12:00] VITALS: BP 113/72
--- NOTE | 2019-06-20 12:27 | General Progress Note ---
Assessment/Plan Assessment/Plan: (1) Altered mental status (2) Polysubstance abuse Patient to be continued on Ativan as per psych D/w Dr. Fischer and he concurred. Subjective Date patient seen: Jun 20, 2019 Time patient seen: 11:30 - am Constitutional: Reports: weakness HEENT: Reports: no symptoms Cardiovascular: Reports: no symptoms Respiratory: Reports: no symptoms Gastrointestinal/Abdominal: Reports: no symptoms Genitourinary: Reports: no symptoms Neurologic/Psychiatric: Reports: weakness Endocrine: Reports: no symptoms Hematologic/Lymphatic: Reports: no symptoms Allergies: Coded Allergies: No Known Allergies (Unverified , 06/15/19) Subjective Patient has been doing better, however continued to c/o weakness. No signs or c/ o pain. Objective Last 24 Hour Vital Signs Date Time Temp Pulse Resp B/P (MAP) Pulse Ox O2 Delivery O2 Flow Rate FiO2 06/19/19 21:00 Room Air 06/19/19 16:00 98.8 62 18 138/98 (111) 100 Intake and Output 06/19/19 06/20/19 19:00 07:00 Intake Total 250 ml Output Total 700 ml Balance -450 ml Intake Oral 250 ml Output Urine Total 700 ml Height (Feet): 5 Height (Inches): 10.00 Weight (Pounds): 243 General Appearance: alert EENT: PERRL/EOMI, normal ENT inspection Neck: non-tender, normal alignment Cardiovascular: normal rate, regular rhythm Respiratory/Chest: decreased breath sounds Abdomen: soft Pelvis: normal external exam, normal rectal exam Extremities: non-tender Edema: trace edema Neurologic: alert, responsive Skin: normal pigmentation Ottoniel Espinal Jun 20, 2019 12:27
--- NOTE | 2019-06-20 14:20 | Nephrology Progress Note ---
Assessment/Plan Problem List: (1) Acute kidney failure Assessment: cr 5.3 on admit lowering now (2) Acute upper GI bleed Assessment: Anemia (3) Hyperkalemia (4) Hyponatremia (5) Encephalopathy (6) Elevated troponin (7) Cirrhosis Assessment Acute kidney failure GI Bleed Hyperkalemia Hyponatremia Elevated troponin Encephalopathy Amphetamines in urine Plan had endoscopy slow Hydrate Flomax- has urinary residual Thiamin Monitor Electrolyte and renal parameters Kidney KEVIN 2D echo Urine studies per orders Transfer to med surg Subjective ROS Limited/Unobtainable: No Constitutional: Reports: malaise Objective Objective Last 24 Hour Vital Signs Date Time Temp Pulse Resp B/P (MAP) Pulse Ox O2 Delivery O2 Flow Rate FiO2 06/20/19 12:00 98.7 69 19 113/72 (86) 98 06/19/19 21:00 Room Air 06/19/19 16:00 98.8 62 18 138/98 (111) 100 Intake and Output 06/19/19 06/20/19 18:59 06:59 Intake Total 250 ml Output Total 700 ml Balance -450 ml Intake Oral 250 ml Output Urine Total 700 ml Height (Feet): 5 Height (Inches): 10.00 Weight (Pounds): 243 General Appearance: no apparent distress Objective no change Vic Kaufman MD Jun 20, 2019 14:20
[2019-06-20] MEDS ORDERED: D5 1/2NS 1000ml IV ONE (16:26)
--- NOTE | 2019-06-20 16:58 | Cardiac Electrophysiology PN ---
Assessment/Plan Assessment/Plan 1. Troponin elevation. The levels are low at 0.19 and 0.14. No chest pain. The EKG is nonischemic. Likely due to renal failure. Echocardiogram showed ejection fraction of 65%. Schedule for stress test in am if complies 2. Severe hyperkalemia without any arrhythmia, that is likely due to renal failure. Resolved 3. S/P septic shock. Off Levophed on antibiotic. 4. GI bleed. The patient has history of heavy alcohol use. S/P EGD by Dr Sai PALOMO RN Subjective Subjective No CP or SOB on NMB. Placement pending Objective Last 24 Hour Vital Signs Date Time Temp Pulse Resp B/P (MAP) Pulse Ox O2 Delivery O2 Flow Rate FiO2 06/20/19 12:00 98.7 69 19 113/72 (86) 98 06/19/19 21:00 Room Air Intake and Output 06/19/19 06/20/19 18:59 06:59 Intake Total 250 ml Output Total 700 ml Balance -450 ml Intake Oral 250 ml Output Urine Total 700 ml Objective HEAD AND NECK: No JVD. LUNGS: Clear. CARDIOVASCULAR: Regular S1 and S2 with no gallop. ABDOMEN: Soft. EXTREMITIES: No pitting edema. Salvador Ellington MD Jun 20, 2019 16:58
[2019-06-20] MEDS ORDERED: Lexiscan 0.4mg/5ml syringe IV PRN (17:00)
--- NOTE | 2019-06-20 19:19 | NUR ---
HAND-OFF: Report given to MAGY PEARL. Endorsed to keep pt NPO after mid night.
[2019-06-20] MEDS: Dyna-Hex 2% Top Sol 2oz TOPIC SCH (20:00)
--- NOTE | 2019-06-20 20:38 | NUR ---
NURSE NOTES: Patient complaining of nausea/vomiting also abdominal pain. Educated patient regarding IV insertion, refused. Explained the need for IV insertion, keeps refusing noted saying "it's a waste of time, I don't have veins anyway's." Primary nurse informed will contact MD for orders.
--- NOTE | 2019-06-20 23:14 | NUR ---
NURSE NOTES: Called Dr Fischer for pain medication due to c/o ABD pain 05/20 but no new orders.
--- NOTE | 2019-06-20 23:20 | NUR ---
NURSE NOTES: Called Dr shen for c/o ABD pain 05/20 and ativan IM for agitation due to no iv accesses. Pt pulled out iv(central line) in the morning and pt refused to insert new iv accesses. Received new order for Depakote and RisperiDal. Order carried out.
[2019-06-20] MEDS ORDERED: Depakote ER 500mg tab ORAL SCH (23:30)
--- NOTE | 2019-06-20 23:52 | NUR ---
Pt refused his Vitals 2 1999 and medication @2100.
--- NOTE | 2019-06-21 02:15 | NUR ---
NURSE NOTES: Educate pt about NPO status. Pt verbalized understanding.
--- NOTE | 2019-06-21 04:28 | NUR ---
NURSE NOTES: Pt refused his Vitals @ 0400.
--- NOTE | 2019-06-21 07:15 | NUR ---
NURSE NOTES: Pt refused his stress test in the morning.
--- NOTE | 2019-06-21 07:18 | NUR ---
HAND-OFF: Report given to RYANNE Valenzuela.
--- NOTE | 2019-06-21 07:44 | NUR ---
NURSE NOTES: Received patient from Hattie Baires. patient lying comfortably in bed asleep. no signs and symptoms of discomfort at this time. Fall precautions in place. call bateman within patients reached. will follow.
--- NOTE | 2019-06-21 08:50 | General Progress Note ---
Assessment/Plan Assessment/Plan: (1) Altered mental status (2) Polysubstance abuse Patient to be continued on Ativan as per psych D/w Dr. Fischer and he concurred. Subjective Date patient seen: Jun 21, 2019 Time patient seen: 08:15 - am Constitutional: Reports: weakness HEENT: Reports: no symptoms Cardiovascular: Reports: no symptoms Respiratory: Reports: no symptoms Gastrointestinal/Abdominal: Reports: no symptoms Genitourinary: Reports: no symptoms Neurologic/Psychiatric: Reports: anxiety, depressed, weakness Endocrine: Reports: no symptoms Hematologic/Lymphatic: Reports: no symptoms Allergies: Coded Allergies: No Known Allergies (Unverified , 06/15/19) Subjective Patient is in bed showing no signs of pain or distress. He denies pain. However is angry and agitated being seen by the Psychiatrist continued on Ativan. Objective Last 24 Hour Vital Signs Date Time Temp Pulse Resp B/P (MAP) Pulse Ox O2 Delivery O2 Flow Rate FiO2 06/20/19 21:00 Room Air 06/20/19 12:00 98.7 69 19 113/72 (86) 98 Intake and Output 06/20/19 06/21/19 19:00 07:00 Intake Total 1240 ml 1763 ml Balance 1240 ml 1763 ml Intake Oral 1240 ml 1240 ml IV Total 50 ml Other 473 ml # Voids 6 3 # Bowel Movements 1 Height (Feet): 5 Height (Inches): 10.00 Weight (Pounds): 243 General Appearance: no apparent distress, alert EENT: PERRL/EOMI, normal ENT inspection Cardiovascular: normal rate, regular rhythm Respiratory/Chest: decreased breath sounds Abdomen: non tender, soft Extremities: non-tender Edema: trace edema Neurologic: alert, responsive Skin: normal pigmentation Ottoniel Espinal Jun 21, 2019 08:50
[2019-06-21] MEDS: Thiamine 100mg tab ORAL SCH (09:00)
[2019-06-21] MEDS: Docusate 100mg cap ORAL SCH ×3 (09:00→17:45)
[2019-06-21] MEDS: Tamsulosin 0.4mg cap ORAL SCH ×2 (09:00→17:45)
[2019-06-21] MEDS: Magnesium Oxide 400mg tab ORAL SCH ×3 (09:00→17:45)
[2019-06-21] MEDS: Sucralfate 1gm tab ORAL SCH ×3 (09:00→17:44)
--- NOTE | 2019-06-21 09:00 | NUR ---
NURSE NOTES: Marco from [facility] on the floor to eval patient to see patient who is scheduled for stress test today. Per marco Patient refused stress test. Dr. Restrepo made aware. will follow.
[2019-06-21 09:22] LABS: HEMATOCRIT 25.9 % (42.0-52.0); HEMOGLOBIN 9.3 G/DL (14.2-18.0); MEAN CORPUSCULAR VOLUME 90 FL (80-99); PLATELET COUNT 91 K/UL (150-450); RED CELL DISTRIBUTION WIDTH 11.2 % (11.6-14.8); WHITE BLOOD COUNT 3.8 K/UL (4.8-10.8)
[2019-06-21 09:26] VITALS: BP 105/73
[2019-06-21 09:37] LABS: ANION GAP 9 mmol/L (5-15); BLOOD UREA NITROGEN 19 mg/dL (7-18); CALCIUM 8.8 MG/DL (8.5-10.1); CARBON DIOXIDE 21 MMOL/L (21-32); CHLORIDE 110 MMOL/L (98-107); CREATININE 1.3 MG/DL (0.55-1.30); POTASSIUM 4.6 MMOL/L (3.5-5.1); SODIUM 140 MMOL/L (136-145)
[2019-06-21 09:41] LABS: ALANINE AMINOTRANSFERASE 34 U/L (12-78); ALBUMIN 3.4 G/DL (3.4-5.0); ALBUMIN/GLOBULIN RATIO 0.8 (1.0-2.7); ALKALINE PHOSPHATASE 92 U/L (46-116); ASPARTATE AMINO TRANSFERASE 49 U/L (15-37); BILIRUBIN,TOTAL 0.6 MG/DL (0.2-1.0)
[2019-06-21 09:52] LABS: PHOSPHORUS 4.5 MG/DL (2.5-4.9)
--- NOTE | 2019-06-21 13:21 | Nephrology Progress Note ---
Assessment/Plan Problem List: (1) Acute kidney failure Assessment: cr 5.3 on admit lowering now (2) Acute upper GI bleed Assessment: Anemia (3) Hyperkalemia (4) Hyponatremia (5) Encephalopathy (6) Elevated troponin (7) Cirrhosis Assessment Acute kidney failure GI Bleed Hyperkalemia Hyponatremia Elevated troponin Encephalopathy Amphetamines in urine Plan had endoscopy slow Hydrate Flomax- has urinary residual Thiamin Monitor Electrolyte and renal parameters Kidney KEVIN 2D echo Urine studies per orders Transfer to med surg Subjective ROS Limited/Unobtainable: No Objective Objective Last 24 Hour Vital Signs Date Time Temp Pulse Resp B/P (MAP) Pulse Ox O2 Delivery O2 Flow Rate FiO2 06/21/19 09:26 79 19 105/73 (84) 100 06/20/19 21:00 Room Air Intake and Output 06/20/19 06/21/19 19:00 07:00 Intake Total 1240 ml 1763 ml Balance 1240 ml 1763 ml Intake Oral 1240 ml 1240 ml IV Total 50 ml Other 473 ml # Voids 6 3 # Bowel Movements 1 Current Medications Medications (Trade) Dose Ordered Sig/Kelley Route PRN Reason Start Time Stop Time Status Last Admin Dose Admin Chlorhexidine Gluconate (Rosie-Hex 2%) 1 applic DAILY@2000 TOPIC 06/19/19 20:00 07/16/19 19:59 Divalproex Sodium (Depakote ER) 1,000 mg BEDTIME ORAL 06/20/19 23:30 07/21/19 23:29 06/20/19 23:32 Docusate Sodium (Colace) 100 mg THREE TIMES A DAY ORAL 06/19/19 18:00 07/18/19 17:59 06/20/19 17:27 Lorazepam (Ativan 2mg/ml 1ml) 2 mg Q4H PRN IV AGITATION 06/19/19 14:15 06/24/19 14:14 06/19/19 17:20 Magnesium Oxide (Mag-Ox 400mg) 400 mg THREE TIMES A DAY ORAL 06/20/19 09:00 07/20/19 08:59 06/20/19 17:27 Ondansetron HCl (Zofran) 4 mg Q4H PRN IVP Nausea & Vomiting 06/19/19 14:15 07/18/19 14:14 Pantoprazole (Protonix) 40 mg EVERY 12 HOURS ORAL 06/19/19 21:00 07/19/19 08:59 06/20/19 08:47 Regadenoson (Lexiscan) 0.4 mg ONCE PRN IV STRESS TEST 06/20/19 17:00 06/22/19 16:59 Risperidone (RisperDAL) 2 mg BEDTIME ORAL 06/20/19 23:30 07/21/19 23:29 06/20/19 23:31 Sucralfate (Carafate) 1 gm FOUR TIMES A DAY ORAL 06/19/19 18:00 07/16/19 12:59 06/20/19 17:27 Tamsulosin HCl (Flomax) 0.4 mg BID ORAL 06/19/19 18:00 07/16/19 10:59 06/20/19 17:27 Thiamine HCl (Vitamin B1) 100 mg DAILY ORAL 06/20/19 09:00 07/19/19 08:59 06/20/19 08:47 Laboratory Tests 06/21/19 08:50: White Blood Count 3.8L, Red Blood Count 2.90L, Hemoglobin 9.3L, Hematocrit 25.9L , Mean Corpuscular Volume 90, Mean Corpuscular Hemoglobin 32.1H, Mean Corpuscular Hemoglobin Concent 35.9, Red Cell Distribution Width 11.2L, Platelet Count 91L, Mean Platelet Volume 4.8L, Neutrophils (%) (Auto) , Lymphocytes (%) (Auto) , Monocytes (%) (Auto) , Eosinophils (%) (Auto) , Basophils (%) (Auto) , Differential Total Cells Counted 100, Neutrophils % ( Manual) 54, Lymphocytes % (Manual) 26, Monocytes % (Manual) 16H, Eosinophils % ( Manual) 4H, Basophils % (Manual) 0, Band Neutrophils 0, Platelet Estimate DecreasedL, Platelet Morphology Normal, Red Blood Cell Morphology Normal, Sodium Level 140, Potassium Level 4.6, Chloride Level 110H, Carbon Dioxide Level 21, Anion Gap 9, Blood Urea Nitrogen 19H, Creatinine 1.3, Estimat Glomerular Filtration Rate 57.7, Glucose Level 98, Calcium Level 8.8, Phosphorus Level 4.5, Magnesium Level 2.3, Total Bilirubin 0.6, Aspartate Amino Transf (AST/SGOT) 49H, Alanine Aminotransferase (ALT/SGPT) 34, Alkaline Phosphatase 92, Total Protein 7.6, Albumin 3.4, Globulin 4.2, Albumin/Globulin Ratio 0.8L Height (Feet): 5 Height (Inches): 10.00 Weight (Pounds): 243 General Appearance: no apparent distress Objective no change Vic Kaufman MD Jun 21, 2019 13:21
--- NOTE | 2019-06-21 14:18 | Cardiac Electrophysiology PN ---
Assessment/Plan Assessment/Plan 1. Troponin elevation. The levels are low at 0.19 and 0.14. No chest pain. The EKG is nonischemic. Likely due to renal failure. Echocardiogram showed ejection fraction of 65%. Noncompliant for stress test 2. Severe hyperkalemia without any arrhythmia, that is likely due to renal failure. Resolved 3. S/P septic shock. Off Levophed on antibiotic. 4. GI bleed and history of heavy alcohol use. S/P EGD by Dr Sai PALOMO RN Subjective Subjective No CP or SOB. SNIF Placement pending Objective Last 24 Hour Vital Signs Date Time Temp Pulse Resp B/P (MAP) Pulse Ox O2 Delivery O2 Flow Rate FiO2 06/21/19 09:26 79 19 105/73 (84) 100 06/20/19 21:00 Room Air Intake and Output 06/20/19 06/21/19 19:00 07:00 Intake Total 1240 ml 1763 ml Balance 1240 ml 1763 ml Intake Oral 1240 ml 1240 ml IV Total 50 ml Other 473 ml # Voids 6 3 # Bowel Movements 1 Laboratory Tests Test 06/21/19 08:50 06/21/19 13:18 White Blood Count 3.8 K/UL (4.8-10.8) L Red Blood Count 2.90 M/UL (4.70-6.10) L Hemoglobin 9.3 G/DL (14.2-18.0) L Hematocrit 25.9 % (42.0-52.0) L Mean Corpuscular Volume 90 FL (80-99) Mean Corpuscular Hemoglobin 32.1 PG (27.0-31.0) H Mean Corpuscular Hemoglobin Concent 35.9 G/DL (32.0-36.0) Red Cell Distribution Width 11.2 % (11.6-14.8) L Platelet Count 91 K/UL (150-450) L Mean Platelet Volume 4.8 FL (6.5-10.1) L Neutrophils (%) (Auto) % (45.0-75.0) Lymphocytes (%) (Auto) % (20.0-45.0) Monocytes (%) (Auto) % (1.0-10.0) Eosinophils (%) (Auto) % (0.0-3.0) Basophils (%) (Auto) % (0.0-2.0) Differential Total Cells Counted 100 Neutrophils % (Manual) 54 % (45-75) Lymphocytes % (Manual) 26 % (20-45) Monocytes % (Manual) 16 % (1-10) H Eosinophils % (Manual) 4 % (0-3) H Basophils % (Manual) 0 % (0-2) Band Neutrophils 0 % (0-8) Platelet Estimate Decreased L Platelet Morphology Normal Red Blood Cell Morphology Normal Sodium Level 140 MMOL/L (136-145) Potassium Level 4.6 MMOL/L (3.5-5.1) Chloride Level 110 MMOL/L (98-107) H Carbon Dioxide Level 21 MMOL/L (21-32) Anion Gap 9 mmol/L (5-15) Blood Urea Nitrogen 19 mg/dL (7-18) H Creatinine 1.3 MG/DL (0.55-1.30) Estimat Glomerular Filtration Rate 57.7 mL/min (>60) Glucose Level 98 MG/DL (74-106) Calcium Level 8.8 MG/DL (8.5-10.1) Phosphorus Level 4.5 MG/DL (2.5-4.9) Magnesium Level 2.3 MG/DL (1.8-2.4) Total Bilirubin 0.6 MG/DL (0.2-1.0) Aspartate Amino Transf (AST/SGOT) 49 U/L (15-37) H Alanine Aminotransferase (ALT/SGPT) 34 U/L (12-78) Alkaline Phosphatase 92 U/L (46-116) Total Protein 7.6 G/DL (6.4-8.2) Albumin 3.4 G/DL (3.4-5.0) Globulin 4.2 g/dL Albumin/Globulin Ratio 0.8 (1.0-2.7) L Urine Opiates Screen Negative (NEGATIVE) Urine Barbiturates Screen Negative (NEGATIVE) Phencyclidine (PCP) Screen Negative (NEGATIVE) Urine Amphetamines Screen Negative (NEGATIVE) Urine Benzodiazepines Screen Negative (NEGATIVE) Urine Cocaine Screen Negative (NEGATIVE) Urine Marijuana (THC) Screen Negative (NEGATIVE) Objective HEAD AND NECK: No JVD. LUNGS: Clear. CARDIOVASCULAR: Regular S1 and S2 with no gallop. ABDOMEN: Soft. EXTREMITIES: No pitting edema. Salvador Ellington MD Jun 21, 2019 14:18
--- NOTE | 2019-06-21 16:11 | NUR ---
CLERK ENTRY LEVEL NOTES SPOKE WITH BLU FROM [facility] [place] PT WAS DISCHARGED TO A BOARD AND CARE PRIOR TO BEING ADMITTED TO [facility]. PT TO DC TO [address] [address].TRANSPORTATION SET UP WITH [facility] WITH AN ETA [id number]. HORACE [phone]
--- NOTE | 2019-06-21 16:18 | NUR ---
NURSE NOTES: Patient reports that he is in pain because he is coming "off from heroin." RN asked when patient last did heroin, patient reports he did heroin yesterday. RN asked how if he was inpatient. Patient reports he had some heroin in "his trunk" RN asked what he meant and patient reports that "his trunk" refers to his rectum. Patient reports that he melted the heroin and mixed it with water to make a soup. Nursing supervisor cold rolling notified. Dr. Washington notified and security notified.
--- NOTE | 2019-06-21 17:30 | NUR ---
NURSE NOTES: Discharge order received from Dr. Washington. Patient to be discharge to [facility] and [facility]. Spoke to HORACE of the facility aware patient is coming. transport made aware that patient is to be admitted prior to 8pm
--- NOTE | 2019-06-21 19:25 | NUR ---
NURSE NOTES: Patient picked up by 2 EMS attendant at 191. Patient left in no distress. VSS
[2019-06-21] MEDS ORDERED: Depakote ER 500mg tab ORAL SCH (21:00)
--- NOTE | 2019-06-21 21:00 | Progress Note ---
DATE: 06/21/2019 SUBJECTIVE: The patient is more calmer and was agitated over the weekend and attempted to leave AMA multiple times over the weekend. Receives psychotropic medications. The patient has poor insight into his current condition. The patient is receiving Ativan. MENTAL STATUS EXAMINATION: Alert and oriented times self, place, and situation. Mood is irritable. Affect is constricted. Congruent with mood. Thought process is concrete. Thought content, no suicidal or homicidal ideation noted. Cognition is intact. Insight and judgment is fair. ASSESSMENT AND PLAN: The patient will be continued on current psychotropic medication. When medically cleared, the patient may be discharged. Alison Mejia M.D. DR: JENELLE JOB#: [id number] CC:
--- NOTE | 2019-06-21 21:11 | General Progress Note ---
Assessment/Plan Problem List: (1) Acute kidney failure ICD Codes: N17.9 - Acute kidney failure, unspecified SNOMED: 18184116 (2) Acute upper GI bleed ICD Codes: K92.2 - Gastrointestinal hemorrhage, unspecified SNOMED: 76569454 (3) AMS (altered mental status) ICD Codes: R41.82 - Altered mental status, unspecified SNOMED: 049108966 Status: progressing Assessment/Plan: apparently used drugs in room so i told rn he has to be dc and this behaviour is not tolerated and told rn supervisor gelatin plant to dc bal as well etoh cirhosis afebr Subjective ROS Limited/Unobtainable: Yes Allergies: Coded Allergies: No Known Allergies (Unverified , 06/15/19) Objective Last 24 Hour Vital Signs Date Time Temp Pulse Resp B/P (MAP) Pulse Ox O2 Delivery O2 Flow Rate FiO2 06/21/19 09:26 79 19 105/73 (84) 100 Intake and Output 06/20/19 06/21/19 18:59 06:59 Intake Total 1240 ml 1763 ml Balance 1240 ml 1763 ml Intake Oral 1240 ml 1240 ml IV Total 50 ml Other 473 ml # Voids 6 3 # Bowel Movements 1 Laboratory Tests 06/21/19 08:50: White Blood Count 3.8L, Red Blood Count 2.90L, Hemoglobin 9.3L, Hematocrit 25.9L , Mean Corpuscular Volume 90, Mean Corpuscular Hemoglobin 32.1H, Mean Corpuscular Hemoglobin Concent 35.9, Red Cell Distribution Width 11.2L, Platelet Count 91L, Mean Platelet Volume 4.8L, Neutrophils (%) (Auto) , Lymphocytes (%) (Auto) , Monocytes (%) (Auto) , Eosinophils (%) (Auto) , Basophils (%) (Auto) , Differential Total Cells Counted 100, Neutrophils % ( Manual) 54, Lymphocytes % (Manual) 26, Monocytes % (Manual) 16H, Eosinophils % ( Manual) 4H, Basophils % (Manual) 0, Band Neutrophils 0, Platelet Estimate DecreasedL, Platelet Morphology Normal, Red Blood Cell Morphology Normal, Sodium Level 140, Potassium Level 4.6, Chloride Level 110H, Carbon Dioxide Level 21, Anion Gap 9, Blood Urea Nitrogen 19H, Creatinine 1.3, Estimat Glomerular Filtration Rate 57.7, Glucose Level 98, Calcium Level 8.8, Phosphorus Level 4.5, Magnesium Level 2.3, Total Bilirubin 0.6, Aspartate Amino Transf (AST/SGOT) 49H, Alanine Aminotransferase (ALT/SGPT) 34, Alkaline Phosphatase 92, Total Protein 7.6, Albumin 3.4, Globulin 4.2, Albumin/Globulin Ratio 0.8L 06/21/19 13:18: Urine Opiates Screen Negative, Urine Barbiturates Screen Negative, Phencyclidine (PCP) Screen Negative, Urine Amphetamines Screen Negative, Urine Benzodiazepines Screen Negative, Urine Cocaine Screen Negative, Urine Marijuana (THC) Screen Negative Height (Feet): 5 Height (Inches): 10.00 Weight (Pounds): 243 Rachel Washington MD Jun 21, 2019 21:11
--- NOTE | 2019-06-21 22:22 | General Progress Note ---
Assessment/Plan Status: progressing Assessment/Plan: Assessment - Cirrhosis - Hepatitis C - GIB - renal failure - hyperkalemia Recommendations - po diet - change PPI to PO - follow CBC - outpatient HCV Rx Subjective Allergies: Coded Allergies: No Known Allergies (Unverified , 06/15/19) Subjective above noted seen this am no abd complaints Objective Last 24 Hour Vital Signs Date Time Temp Pulse Resp B/P (MAP) Pulse Ox O2 Delivery O2 Flow Rate FiO2 06/21/19 09:26 79 19 105/73 (84) 100 Intake and Output 06/20/19 06/21/19 18:59 06:59 Intake Total 1240 ml 1763 ml Balance 1240 ml 1763 ml Intake Oral 1240 ml 1240 ml IV Total 50 ml Other 473 ml # Voids 6 3 # Bowel Movements 1 Laboratory Tests 06/21/19 08:50: White Blood Count 3.8L, Red Blood Count 2.90L, Hemoglobin 9.3L, Hematocrit 25.9L , Mean Corpuscular Volume 90, Mean Corpuscular Hemoglobin 32.1H, Mean Corpuscular Hemoglobin Concent 35.9, Red Cell Distribution Width 11.2L, Platelet Count 91L, Mean Platelet Volume 4.8L, Neutrophils (%) (Auto) , Lymphocytes (%) (Auto) , Monocytes (%) (Auto) , Eosinophils (%) (Auto) , Basophils (%) (Auto) , Differential Total Cells Counted 100, Neutrophils % ( Manual) 54, Lymphocytes % (Manual) 26, Monocytes % (Manual) 16H, Eosinophils % ( Manual) 4H, Basophils % (Manual) 0, Band Neutrophils 0, Platelet Estimate DecreasedL, Platelet Morphology Normal, Red Blood Cell Morphology Normal, Sodium Level 140, Potassium Level 4.6, Chloride Level 110H, Carbon Dioxide Level 21, Anion Gap 9, Blood Urea Nitrogen 19H, Creatinine 1.3, Estimat Glomerular Filtration Rate 57.7, Glucose Level 98, Calcium Level 8.8, Phosphorus Level 4.5, Magnesium Level 2.3, Total Bilirubin 0.6, Aspartate Amino Transf (AST/SGOT) 49H, Alanine Aminotransferase (ALT/SGPT) 34, Alkaline Phosphatase 92, Total Protein 7.6, Albumin 3.4, Globulin 4.2, Albumin/Globulin Ratio 0.8L 06/21/19 13:18: Urine Opiates Screen Negative, Urine Barbiturates Screen Negative, Phencyclidine (PCP) Screen Negative, Urine Amphetamines Screen Negative, Urine Benzodiazepines Screen Negative, Urine Cocaine Screen Negative, Urine Marijuana (THC) Screen Negative Height (Feet): 5 Height (Inches): 10.00 Weight (Pounds): 243 Objective mildly obese man NCAT supple CTA RR abd soft ND NT no edema non focal, alert Nancy Gibbs MD Jun 21, 2019 22:22
--- NOTE | 2019-06-22 09:48 | NUR ---
*-* INSURANCE *-* ALL CLINICALS FROM DOS TO D/C HAVE BEEN REFAXED WITH THE EXCEPTION OF D/C SUMMARY NOT READY YET. [facility] tracking#[id number] CM: Lucy ph#[phone] ext [phone] fax#[phone]
--- NOTE | 2019-06-22 14:01 | Discharge Summary ---
Discharge Summary Discharge Summary _ DATE OF ADMISSION: 06/16/2019 DATE OF DISCHARGE: 06/21/2019 DISCHARGED BY: Dr Washington REASON FOR ADMISSION: 54 years old male with past medical history of diabetes, alcoholic cirrhosis, hepatitis C, presented to emergency department for evaluation of abdominal pain and hematemesis. Patient apparently missed some doses of insulin over the past few days. Patient reported heavy alcohol use over the past couple of days. He reported about 5 episodes of hematemesis and diarrhea throughout the day. No bloody stool or melena. He denied taking blood thinners. Upon evaluation patient was tachycardic with heart rate 120 and hypotensive. Pulse oximetry was stable on room air , and patient was afebrile. Laboratory work-up revealed no leukocytosis , hemoglobin 10.1, hematocrit 28.3. Platelet count 103 Potassium 6.2, sodium 129 . BUN 19 , creatinine 5.3. Glucose 93. Calcium 10.2. Troponin elevated 0.215 . AST 117 , ALT 28 . Lipase 206 . Lactic acid 0.9. Urine toxicology screen was positive for amphetamine and opiates. Urinalysis revealed +1 protein , +1 ketones , +5 RBC. Chest x-ray revealed satisfactory placement of central line. CT scan of abdomen and pelvis revealed sigmoid colonic wall thickening suspicious for colitis. Bilateral parenchymal ground-glass opacity, nonspecific . Upper lobe hyperinflation and small blebs, likely representing COPD changes. In emergency department FAST exam was negative for free fluid in the abdomen. Patient started on aggressive IV hydration. Blood pressure remained low. Central line was placed , and patient subsequently was started on Levophed. Patient was typed and screened for possible blood transfusion. Patient subsequently admitted to ICU for further management. CONSULTANTS: video editing internship Dr. Freeman GI specialist Dr. Gibbs automatic bandsaw tender Dr. Kaufman cargo broker/oncologist Dr. Herrera pain specialist Dr. Fischer [facility] COURSE: Patient admitted to ICU. Patient started on Sandostatin drip and IV Protonix. Patient was on IVF and Levophed to keep mean arterial blood pressure above 65. Hemodynamic status was closely monitored. Patient was able to be weaned from pressor. Records Manager closely followed. Serial troponin started to trend down , still minimally elevated ; last troponin - 0.06. Echocardiogram revealed preserved ejection fraction of 65% with no evidence of wall motion abnormality. No evidence of aortic stenosis or aortic regurgitation. Normal left ventricular diastolic function. Lipid panel was stable. Per video editing internship, troponin levels were low and flat. Patient had no chest pain. EKG was nonischemic. Troponin elevation was likely due to renal failure. Patient was noncompliant for stress test. Blood cultures were negative. Patient remained afebrile, no leukocytosis. Chest x-ray revealed no acute cardiopulmonary pathology. Venous duplex bilateral lower extremity revealed no evidence of acute DVT. Supplemental oxygen titrated to keep pulse oximetry above 92 %. GI specialist followed. Patient undergone abdominal ultrasound , which revealed coarse hepatic echogenicity and surface nodularity, suspicious for early cirrhotic changes. Negative for gallstones or dilated bile ducts. Distended bladder volume 1150 mL, postvoid residual 209 mL. Splenomegaly. When patient hemodynamically stabilized, he undergone EGD , which revealed gastritis and portal hypertensive gastropathy. At the time of this dictation biopsy results still pending. Sandostatin drip discontinued. Hepatitis serology reveal evidence of hepatitis C. Patient was recommended outpatient hepatitis C treatment. LFT were closely monitored. AST down from 117 to 49. Total bilirubin remained stable. Patient started on thiamine and folic acid. Ammonia level initially 63. Patient received lactulose. Ammonia level down to 32. Patient started on diet as tolerated. Antiemetic were on board as needed. Blood sugar remained stable. Hemoglobin A1c-5.3 Hemoglobin and hematocrit were closely monitored with goal to keep hemoglobin above 7. Patient undergone transfusion of 1 unit of packed red blood cells. Prior to discharge hemoglobin 9.3 and hematocrit 25.9. According to cargo broker patient had anemia due to underlying GI bleeding. Thrombocytopenia was likely due to alcohol abuse cirrhosis and hepatitis C. Platelet count was closely monitored and was 91 upon discharge. DVT prophylaxis with SCD provided. Global Marketing Manager closely followed. Patient was initially on aggressive IV hydration. Patient started on Flomax . Urine studies were done. Electrolytes were corrected as needed. Prior to discharge sodium 140, potassium 4.6. Acute renal failure resolved. BUN from 90 down to 19 and creatinine from 5.3 down to 1.3. Patient was strongly advised on ETOH and illicit street drug cessation. Pain management was addressed as per pain specialist recommendation. No further GI bleeding. Patient remained hemodynamically stable. Patient was ready for discharge. FINAL DIAGNOSES: Shock, probably due to GI bleeding Acute upper GI bleeding Acute renal failure-resolved Troponin elevation due to renal failure Severe hyperkalemia- resolved Hyponatremia-resolved Anemia due to underlying GI bleeding Thrombocytopenia Cirrhosis Hepatitis C Status post EGD Gastritis Portal hypertensive gastropathy Encephalopathy Polysubstance abuse DISCHARGE MEDICATIONS: List of medication provided to patient DISCHARGE INSTRUCTIONS: Patient was discharged home . Follow up with primary care provider in one week. I have been assigned to dictate discharge summary for this account. I was not involved in the patient's management. Mabel Macias NP Jun 22, 2019 14:01
== END 2019-06-21 19:15 | disposition home or self-care (01) | DRG 241 ==
LOC: EDBD 19:18 → EMR 20:50 → EDBEDREQ 06-16 00:12 → EDBEDREQSVC 06-16 00:12 → EDBEDREQDT 06-16 00:12 → EDBEDREQTM 06-16 00:12 → ICU 06-16 00:59 → EDBEDREQ 06-16 02:19 → 2W 06-18 07:30 → 2E 06-19 05:05 → 4E 06-19 14:07
PROC: 30233N1 Transfusion of Nonautologous Red Blood Cells into Peripheral Vein, Percutaneous Approach (ICD-10-PCS; principal; 2019-06-16)
PROC: 0DJ08ZZ Inspection of Upper Intestinal Tract, Via Natural or Artificial Opening Endoscopic (ICD-10-PCS; 2019-06-16)
DX: K29.01 Acute gastritis with bleeding (principal); R57.9 Shock, unspecified; E87.5 Hyperkalemia; G93.40 Encephalopathy, unspecified; E87.1 Hypo-osmolality and hyponatremia; N17.9 Acute kidney failure, unspecified; E11.9 Type 2 diabetes mellitus without complications; K70.30 Alcoholic cirrhosis of liver without ascites; K76.6 Portal hypertension; K31.89 Other diseases of stomach and duodenum; D50.0 Iron deficiency anemia secondary to blood loss (chronic); D69.6 Thrombocytopenia, unspecified; B19.20 Unspecified viral hepatitis C without hepatic coma; F19.10 Other psychoactive substance abuse, uncomplicated; F10.20 Alcohol dependence, uncomplicated; R74.8 Abnormal levels of other serum enzymes
CPT/HCPCS: 36415; 71045; 71250; 74176; 76700; 80053; 80061; 80307; 81003; 82140; 82550; 82607; 82728; 82746; 82977; 83036; 83540; 83550; 83605; 83690; 83735; 83880; 84100; 84132; 84439; 84443; 84484; 84550; 85007; 85025; 85610; 85730; 86140; 86703; 86705; 86709; 86803; 86850; 86900; 86901; 86920; 87040; 87081; 87340; 89050; 93005; 93306; 93970; 94003; 94150; 96361; 96365; 96366; 96368; 96372; 96375; 99291; J2405; J7030